=== PATIENT | male | born 1940 | race Caucasian/White ===

== ENCOUNTER → 2017-09-15 09:27 | Outpatient (CLI) | payer MEDICARE, SELFPAY ==
[2017-09-15 12:59] LABS: Anion Gap 9 (5-15); BUN 37 mg/dL (7-18); BUN/Creat Ratio 19.8 RATIO (10-20); Chloride 110 mmol/L (98-107); Cholesterol 120 mg/dL (200); Creatinine, Serum 1.87 mg/dL (0.70-1.30); EST Glomerular Filtration Rate 38 mL/min (>60); Est Glom Filt Rate - Afr Amer 46 mL/min (>60); Glucose 126 mg/dL (74-106); High Density Lipoprotein 44 mg/dL; Potassium 4.9 mmol/L (3.5-5.1); Sodium Level 142 mmol/L (136-145); Triglycerides 131 mg/dL; Very Low Density Lipoprotein 26 mg/dL (5-40)
== END ==
PROVIDERS: Family Provider Family Medicine; PCP Family Medicine; Visit Provider Family Medicine
DX: I10 Essential (primary) hypertension (principal); E11.9 Type 2 diabetes mellitus without complications
CPT/HCPCS: 36415; 80048; 80061

== ENCOUNTER → 2018-05-02 09:09 | Outpatient (CLI) | payer MEDICARE, SELFPAY ==
[2018-05-02 10:52] LABS: AST(SGOT) 12 U/L (15-37); Alanine Aminotransfer ALT/SGPT 20 U/L (16-61); Albumin, Serum 4.1 g/dL (3.2-5.0); Alkaline Phosphatase 67 U/L (45-117); Anion Gap 11 (5-15); BUN 45 mg/dL (7-18); Bilirubin, Direct 0.15 mg/dL (0.00-0.30); Calcium,Total 9.2 mg/dL (8.5-10.1); Chloride 108 mmol/L (98-107); Cholesterol 141 mg/dL (200); Creatinine, Serum 2.05 mg/dL (0.70-1.30); EST Glomerular Filtration Rate 34 mL/min (>60); Est Glom Filt Rate - Afr Amer 41 mL/min (>60); Globulin 3.6 g/dL (2.2-4.2); Glucose 131 mg/dL (74-106); High Density Lipoprotein 47 mg/dL; Potassium 4.3 mmol/L (3.5-5.1); Protein, Total 7.7 g/dL (6.4-8.2); Sodium Level 141 mmol/L (136-145); Triglycerides 172 mg/dL; Very Low Density Lipoprotein 34 mg/dL (5-40)
[2018-05-02 10:58] LABS: Microalbumin,Random Urine 43.8 mg/L (NO RANGE EST.); Microalbumin:Creatinine Ratio 30.8 mg/g CRE (<30 mg/g CRE)
--- OUTSIDE RECORDS SUMMARY | 2018-06-25 12:02 | XMS RPT_ITS ---
:1940 Author Organization OHIP Care Team Providers Name Role Phone Nati Dorsey Attending Unavailable PROVIDER, UNKNOWN Referring Unavailable Domingo Greer Primary Care Unavailable Domingo Greer Attending Unavailable Domingo Greer Primary Care Unavailable Elly Petit Attending Unavailable Marva Ch Attending Unavailable Rosalie Gracia Attending Unavailable Domingo Greer Referring Unavailable Domingo Greer Primary Care Unavailable Domingo Greer Attending Unavailable Domingo Greer Primary Care Unavailable Hung Pearson Consulting Unavailable PROBLEMS PROBLEMS DATE TYPE CONDITION / CODE ATTENDING STATUS SOURCE 09/29/2017 Admitting Abdominal aortic Nati Dorsey [employer] [facility] Diagnosis aneurysm, without System rupture / Repository I71.4(ICD-10) 09/29/2017 Admitting 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 / System I70.1(ICD-10) Repository 09/27/2017 Unknown I10 - Essential Luis Gracia (primary) Rosalie Cash [facility] hypertension / Hospital I10(ICD-10) Repository 09/27/2017 Unknown Z95.5 - Presence of Gracia, Active [place] coronary angioplasty Rosalie Cash [facility] implant and graft / Hospital Z95.5(ICD-10) Repository 09/27/2017 Unknown I25.10 - Samia, Active Walker Atherosclerotic Rosalie Cash [facility] heart disease of Hospital [place] coronary Repository artery without angina pectoris / I25.10(ICD-10) 09/27/2017 Unknown E78.5 - Samia, Active Walker Hyperlipidemia, Rosalie Cash [facility] unspecified / Hospital E78.5(ICD-10) Repository 09/15/2017 Unknown E11.9 - Type 2 Domingo Greer Active [place] diabetes mellitus [facility] without Hospital complications / Repository E11.9(ICD-10) PROCEDURES PROCEDURES No Procedure Records FoundRESULTS RESULTS BASIC METABOLIC Collected: 05/02/2018 Status: F Source: [place] PROFILE (BMP) 9:12 AM [facility] REPOSITORY Order Comment: DR PEARSON ORDERED: LIVER, LIPID DR LOPEZ ORDERED: LIVER, LIPID, BMP, AUBRIE TYPE CODE TESTS RESULT OUT OF RANGE REFERENCE UNITS LAB L501.0100 74-106 mg/dL High GLU 131 Result Comment: Fasting Glucose result greater than or equal to 126 mg/dL suggests DIABETES MELLITUS per A.D.A. criteria. Please note revised GLUCOSE reference range effective 2017. LAB L501.1000 7-18 mg/dL High BUN 45 LAB L501.1100 0.70-1.30 mg/dL High CREAT,SERUM 2.05 Result Comment: The validity of the calculated GFR AND GFRAA in patients over 70 years has not been determined. Clinical correlation is essential. LAB L501.1110 >60 mL/min Low EST GFR 34 Result Comment: Non- GFR Calc LAB L501.1115 >60 mL/min Low EST GFR - AA 41 Result Comment: GFR Calc LAB L501.1300 10-20 RATIO High BUN/CRE 22.0 LAB L501.2200 8.5-10.1 mg/dL CA Normal 9.2 LAB L501.5300 136-145 mmol/L NA Normal 141 LAB L501.5600 3.5-5.1 mmol/L K Normal 4.3 LAB L501.5900 98-107 mmol/L High CL 108 LAB L501.6100 21.0-32.0 mmol/L Normal CO2 22.0 LAB L501.6200 5-15 Normal GAP 11 Performed By: #### L500.2500, L500.3400, L500.4100 #### [facility] [address] [place], [place], [id number] LIVER PROFILE Collected: 05/02/2018 Status: F Source: [place] 9:12 AM [facility] [place] Order Comment: DR PEARSON ORDERED: LIVER, LIPID DR LOPEZ ORDERED: LIVER, LIPID, BMP, AUBRIE TYPE CODE TESTS RESULT OUT OF RANGE REFERENCE UNITS LAB L501.1500 6.4-8.2 g/dL Normal T PROT 7.7 LAB L501.1800 3.2-5.0 g/dL Normal ALB 4.1 LAB L501.1950 2.2-4.2 g/dL Normal GLOB 3.6 LAB L501.4100 15-37 U/L Low AST 12 LAB L501.4305 45-117 U/L Normal ALK P 67 LAB L501.4405 16-61 U/L Normal ALT 20 LAB L501.4600 0.20-1.00 mg/dL Normal T BILI 0.50 LAB L501.4700 0.00-0.30 mg/dL Normal D BILI 0.15 Performed By: #### L500.2500, L500.3400, L500.4100 #### [facility] [address] [facility]. [place], [place], [id number] LIPID PROFILE Collected: 05/02/2018 Status: F Source: [place] 9:12 AM [facility] Order Comment: DR PEARSON ORDERED: LIVER, LIPID DR LOPEZ ORDERED: LIVER, LIPID, BMP, AUBRIE TYPE CODE TESTS RESULT OUT OF RANGE REFERENCE UNITS LAB L501.4900 200 mg/dL Normal CHOL 141 Result Comment: <200 mg/dL Desirable 200-240 mg/dL Borderline >240 mg/dL High Risk LAB L501.5000 mg/dL Normal TRIG 172 Result Comment: The drugs N-Acetylcysteine and Metamizole may falsely depress this assay. Serum Triglycerides Reference Interval Normal <150 mg/dL Borderline high 150 - 199 mg/dL High 200 - 499 mg/dL Very High > or = 500 mg/dL LAB L501.6400 mg/dL Normal HDL 47 Result Comment: The drugs N-Acetylcysteine and Metamizole may falsely depress this assay. Reference Range HDL <40 mg/dL Low HDL Cholesterol HDL >or= 60 mg/dL High HDL Cholesterol LAB L501.6500 0-130 mg/dL Normal LDL 60 LAB L501.6600 5-40 mg/dL Normal VLDL 34 Performed By: #### L500.2500, L500.3400, L500.4100 #### [facility] [address] [place], [address] MICROALB:CREAT Collected: 05/02/2018 Status: F Source: BINU RATIO,RANDOM UR 9:12 AM [facility] Order Comment: DR PEARSON ORDERED: LIVER, LIPID DR LOPEZ ORDERED: LIVER, LIPID, BMP, AUBRIE TYPE CODE TESTS RESULT OUT OF RANGE REFERENCE UNITS LAB L501.1200 NO RANGE EST. mg/dL Normal UR CREAT 142.00 LAB L502.0500 NO RANGE EST. mg/L Normal 43.8 MICROALBUMIN ,UR LAB L502.0600 <30 mg/g CRE mg/g CRE High 30.8 MALB:CREAT Performed By: #### L502.0250 #### [facility] [address] [place], [address] VL AORTA ILIAC Observed: 09/29/2017 Status: F Source: [employer] DUPLEX W/ STENT 8:49 AM SYSTEM REPOSITORY GRAFT Patient Name: VIVEK GANDHI Ultrasound Exam Date/Time 09/29/2017 10:04:06 EDT Exam VL Aorta Iliac Duplex w/ Stent Graft Ordering Physician NATI DORSEY Accession Number [id number] CPT4 Codes 47655 (), 22132 () Reason For Exam Attn renals in patient s/p stent graft Report [facility] --- Abdominal Aortic Endograft Report Patient Name: Vivek Gandhi : 1940 (76yrs) Study Date: 09/29/2017 Age: 76 Account: [id number] Gender: M Loc: BP: Ordering: Nati Dorsey MD Technologist: Ordering Physician: Nati Dorsey MD [employer] Equipment Mechanic: Denise Dillard RVT Interpreting Physician: Fox Mcgraw MD --- Location: [address] --- INDICATIONS: Aortic aneurysm. --- CONCLUSIONS 1. The right renal artery velocity is elevated, suggestive of a greater than 60% stenosis. The left renal artery velocity is elevated, suggestive of a greater than 60% stenosis. 2. Slight enlargement of iliac arteries --- IMPRESSIONS: - No endoleak present at this time. - No flow in sac. - The right renal artery velocity is elevated, suggestive of a greater than 60% stenosis. - The left renal artery velocity is elevated, suggestive of a greater than 60% stenosis. - Patent aortic endograft with no evidence of an endo leak. --- HISTORY: Risk factors: Hypertension. Diabetes mellitus. Dyslipidemia. --- STUDY DATA: Abdominal aorta endograft duplex exam. Birthdate: Patient birthdate: 1940. Age: Patient is 76 yr old. Sex: Gender: male. Ethnicity: Ethnicity: white. Doppler flow study including spectral analysis, color and chan scale imaging. Patient status: Outpatient. Procedure: A vascular evaluation was performed. The images were obtained using a Hydrophi E9 vascular ultrasound machine. --- Arterial flow: + +--------+-------+ + --+ !Location !V sys !AP cm !Transverse!Comment ! + +--------+-------+ + --+ !Aorta - proximal !85 cm/s !2.79 cm!3.24 cm !proximal gas. ! + +--------+-------+ + --+ !Aorta - Stent Limb Prox !41 cm/s !-------! ! --! + +--------+-------+ + --+ !Aorta - Stent Limb Mid !33 cm/s !-------! ! --! + +--------+-------+ + --+ !Aorta - Stent Limb Dist !39 cm/s !-------! ! --! + +--------+-------+ + --+ !Aorta - mid !41 cm/s !3.53 cm!3.38 cm ! --! + +--------+-------+ + --+ !Aorta - distal !--------!4.16 cm!4.56 cm ! --! + +--------+-------+ + --+ !Right Limb Prox !68 cm/s !-------! !No endoleak ! ! ! ! ! !seen. ! + +--------+-------+ + --+ !Right Limb Mid !74 cm/s !-------! ! --! + +--------+-------+ + --+ !Right Limb Dist !82 cm/s !-------! ! --! + +--------+-------+ + --+ !Right ROBERTO [place] - Distal to !131 cm/s!1.69 cm!1.71 cm ! --! !stent ! ! ! ! ! + +--------+-------+ + --+ !Left Limb Prox !62 cm/s !-------! ! --! + +--------+-------+ + --+ !Left Limb Mid !149 cm/s!-------! ! --! + +--------+-------+ + --+ !Left Limb Dist !142 cm/s!-------! ! --! + +--------+-------+ + --+ !Left ROBERTO [place] - Distal to !144 cm/s!1.82 cm!1.93 cm ! --! !stent ! ! ! ! ! + +--------+-------+ + --+ !Right renal artery max !312 cm/s!-------! !suboptimal. ! + +--------+-------+ + --+ !Left renal artery max !245 cm/s!-------! ! --! + +--------+-------+ + --+ !Inferior mesenteric !--------!-------! !not seen. ! + +--------+-------+ + --+ HAWA table: + + + + !Stage !R PT index!L PT ! + + + + !Baseline HAWA!1.04 !0.77 mm Hg! + + + + Electronically signed by: Fox Mcgraw MD [id number]:18 Final Dictated: 09/29/2017 1:00 pm Dictating Physician: FOX MCGRAW Signed Date and Time: 09/29/2017 1:00 pm Signed by: FOX MCGRAW CARDIOLOGY VISIT Observed: 09/28/2017 Status: F Source: BINU REPORT 10:[address] [place] [address] OFFICE VISIT Date of Service: 09/27/17 MR#: [id number] Acct: [id number] Name: VIVEK GANDHI Rep #: [id number] : 1940 Provider: Rosalie Gracia Age/Sex: 76/M [place] [facility] [place]: Signed HPI [facility] Details: VIVEK GANDHI is a 76 M who presents to the office today for for a cardiovascular follow-up. He has a history of coronary artery disease with angioplasty and stenting of the proximal and distal RCA, infrarenal abdominal aortic aneurysm being followed by Dr. Nati Dorsey at [facility], hypertension, hyperlipidemia and diabetes. From a cardiac standpoint, patient is doing well. He does not have any chest discomfort/heaviness/tightness. His exercise tolerance is stable for his age. He does not have any worsening symptoms of shortness of breath. He denies any PND. He does not have any orthopnea. He does not have any symptoms of congestive heart failure. He does not have any palpitations that he is aware of. He does not have any lightheadedness or dizziness. He does not have any near-syncope or syncope. He does not have any lower extremity edema. He does not have any symptoms of claudication. Intake Vital Signs09/27/17 Blood Pressure 130/80 09/27/17 Height 5 ft 10 in 09/27/17 Weight: 230 lb 09/27/17 Body Mass Index (BMI) 33.0 09/27/17 Blood Pressure 162/80 Intake Visit Reasons: 6 M Day Care Home Provider Required: No Accompanied by: none Is patient in pain?: No Allergies No Known Allergies Allergy (Verified 09/27/17 09:21) Medications aspirin 325 mg tablet 325 mg PO QDAY 09/21/17 [History Confirmed 09/27/17] atenolol 50 mg tablet 50 mg PO QDAY 09/21/17 [History Confirmed 09/27/17] clopidogrel 75 mg tablet 75 mg PO QDAY 09/21/17 [History Confirmed 09/27/17] coenzyme Q10 100 mg capsule 100 mg PO QDAY 09/21/17 [History Confirmed 09/27/17] hydrochlorothiazide 25 mg tablet 25 mg PO QDAY 09/21/17 [History Confirmed 09/27/17] lisinopril 20 mg tablet 20 mg PO BID tab 09/21/17 [History Confirmed 09/27/17] metformin 500 mg tablet 500 mg PO QDAY tab 09/21/17 [History Confirmed 09/27/17] nifedipine ER 60 mg tablet,extended release 60 mg PO QDAY 09/21/17 [History Confirmed 09/27/17] rosuvastatin 40 mg tablet 40 mg PO QHS tab 09/21/17 [History Confirmed 09/27/17] liraglutide 0.6 mg/0.1 mL (18 mg/3 mL) subcutaneous pen injector SC 30 Days #9 09/27/17 [History Confirmed 09/27/17] Ejection fraction %: 65 to 70 PFSH Medical History Atherosclerotic heart disease of [place] coronary artery without angina pectoris (Chronic) Aortic aneurysm of unspecified site without mention of rupture (Chronic) Diabetes mellitus (Chronic) HLD (hyperlipidemia) (Chronic) Benign essential HTN (Chronic) Asymptomatic coronary heart disease (Chronic) Surgical History Presence of coronary angioplasty implant and graft (Chronic) Family History Mother Cancer Social History Smoking Status: Former smoker alcohol intake: never substance use type: does not use caffeine: Yes Type: carbonated beverages Number of servings: 3 what type of physical activity do you participate in: none seatbelt use: always do you feel safe at home: Yes ROS Const Const: Negative for weakness, fatigue, fever(s) or headache(s) Eyes Eyes: Negative for blind spots, loss of peripheral vision or transient loss of vision ENT ENT: Negative for headache(s), dizziness, tinnitus or Nosebleed/epistaxis Cardio Chest Pain: No Palpitations: No Edema: None Muscle aches with walking: None Resp Respiratory: Negative for SOB with activity, SOB at rest, SOB orthopnea\SOB lying down or Cough GI GI: Negative nausea, vomiting, heartburn or vomiting blood/hematemesis : Negative for hematuria Musc Musc: Negative for muscle aches/ myalgia Neuro Neuro: Negative for weakness, headache(s), dizziness, near syncope, syncope, lightheadedness or orthostatic symptoms Zaid Hematologic/Lymphatic: Negative for easy bleeding Endo Endo: Negative for fatigue Cardiology Exam Const Appearance: cooperative, no acute distress and well developed Orientation: alert, awake and oriented x3 Head Head: normocephalic and atraumatic Mouth: moist mucous membranes Eyes General: appearance normal, both eyes and all related structures Conjunctivae: conjunctivae normal Pupils: PERRL EOM: EOM intact bilaterally Neck Neck: normal visual inspection, no lymphadenopathy and no JVD Carotids: Negative bruit Neck Mass: Negative Neck mass Chest Chest inspection: normal inspection of the chest and symmetric chest movement Auscultation: Bilateral: Clear to Auscultation Cardio Palpation: normal PMI Rate: regular rate Rhythm: regular rhythm Heart sounds: S1 normal and S2 normal; negative rub, gallop or murmur GI GI: normal to inspection, soft, no hepatosplenomegaly and bowel sounds present; negative tender Neuro General: alert, awake, oriented x3, CN's II-XI intact bilaterally and moves all extremities Extremities Pulses: Normal: Right Posterior Tibial Pulse, Left Posterior Tibial Pulse, Right Radial Pulse, Left Radial Pulse Lower Extremity Edema: None: Bilateral Psych Psychological: normal affect Assessment AND Plan 1. Atherosclerosis of [place] coronary artery of [place] heart without angina pectoris I25.10 PTCA/stent of RCA 09/20/96; Redilated the RCA AND PTCA of CX 11/24/01; PTCA/stent to distal RCA 02/20/02; PTCA/stent to RCA X 2 (BARBARA) 11/19/04; Aort Biiliac stent graft 03/10/11; Plan - TOMAS Morgan Stable, from a cardiac standpoint patient does not have any symptoms of angina. We recommend that they continue with current aggressive medical management and risk factor modification. Orders Orders: 2. Pure hypercholesterolemia E78.00; E78.0 Plan - TOMAS Morgan Recent lipid profile demonstrates total cholesterol 120, HDL 44, LDL 50. Will not make any adjustments. We will continue to monitor. 3. Benign essential HTN I10 Plan - TOMAS Morgan Blood pressure initially elevated however upon recheck it is normotensive. We will continue to monitor. Will not make any adjustments. Orders Orders: 4. Aortic aneurysm without rupture, unspecified portion of aorta I71.9 Plan - TOMAS Morgan Patient does continue to follow with vascular. Plan Detail Other Orders Orders: Additional Comments - TOMAS Morgan The above patient was discussed with Dr. Pearson, he agrees with plan of care. Thank you for allowing us to participate in patient's plan of care, if you have any questions please do not hesitate to call. This note was generated using a voice recognition system and there may be incorrect words, spelling or punctuation errors that were not noted when reviewing the office note prior to saving. 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 transplanted heart: [place] heart Pure hypercholesterolemia E78.00; E78.0 Hyperlipidemia type: pure hypercholesterolemia Benign essential HTN I10 Aortic aneurysm without rupture, unspecified portion of aorta I71.9 Aortic location: unspecified Presence of rupture: without rupture Coding Level of Care Code Off vis,est,level 3 Diagnoses Atherosclerosis of [place] coronary artery of [place] heart without angina pectoris I25.10 [place] vs. transplanted heart: [place] heart Pure hypercholesterolemia E78.00; E78.0 Hyperlipidemia type: pure hypercholesterolemia Benign essential HTN I10 Aortic aneurysm without rupture, unspecified portion of aorta I71.9 Aortic location: unspecified Presence of rupture: without rupture 09/27/17 1027 <Electronically signed by Rosalie MARIN> Date Rosalie MARIN 09/28/17 1023<Electronically signed by Hung Pearson MD> Cosigner Signature: Date (if applicable) Hung Pearson MD CC: Domingo Greer MD 12 LEAD EKG PERFORMED Observed: 09/27/2017 Status: F [place] [facility] [place] [facility] [place] [facility] [address] [place] [address] 12 Lead EKG performed [place] [facility] 09/27/17 0915 MR#: [id number] Acct: [id number] Name: VIVEK GANDHI Rep #: [id number] : 1940 76 From: Rosalie MARIN Attending Dr: Rosalie Gracia Status: DEP AMB Ordering Dr: Rosalie Gracia Date: 09/27/17 [place] [facility] [place]: M C Ad[place] [facility] Lead E[place] performed [place] [facility] ECG Report Interpretation Sinus Bradycardia WITHIN NORMAL LIMITSElectronically signed on 09/30/2017 at 17:15 by Hung Pearson 09/30/17 1720 Date Rosalie MARIN CC: Domingo Greer MD Date Dictated: 09/27/17914 Date Transcribed: 09/27/17914 Track Service Worker: ANA MARIA Signed BASIC METABOLIC Collected: 09/15/2017 Status: F Source: [place] PROFILE (BMP) 9:28 AM [facility] [place] TYPE CODE TESTS RESULT OUT OF RANGE REFERENCE UNITS LAB L501.0100 74-106 mg/dL High GLU 126 Result Comment: Fasting Glucose result greater than or equal to 126 mg/dL suggests DIABETES MELLITUS per A.D.A. criteria. Please note revised GLUCOSE reference range effective 2017. LAB L501.1000 7-18 mg/dL High BUN 37 LAB L501.1100 0.70-1.30 mg/dL High CREAT,SERUM 1.87 Result Comment: The validity of the calculated GFR AND GFRAA in patients over 70 years has not been determined. Clinical correlation is essential. LAB L501.1110 >60 mL/min Low EST GFR 38 Result Comment: Non- GFR Calc LAB L501.1115 >60 mL/min Low EST GFR - AA 46 Result Comment: GFR Calc LAB L501.1300 10-20 RATIO Normal BUN/CRE 19.8 LAB L501.2200 8.5-10.1 mg/dL CA Normal 9.0 LAB L501.5300 136-145 mmol/L NA Normal 142 LAB L501.5600 3.5-5.1 mmol/L K Normal 4.9 LAB L501.5900 98-107 mmol/L High CL 110 LAB L501.6100 21.0-32.0 mmol/L Normal CO2 23.0 LAB L501.6200 5-15 Normal GAP 9 Performed By: #### L500.2500, L500.4100 #### [facility] [address] [place], [address] LIPID PROFILE Collected: 09/15/2017 Status: F Source: [place] 9:28 AM [facility] [place] TYPE CODE TESTS RESULT OUT OF RANGE REFERENCE UNITS LAB L501.4900 200 mg/dL Normal CHOL 120 Result Comment: <200 mg/dL Desirable 200-240 mg/dL Borderline >240 mg/dL High Risk LAB L501.5000 mg/dL Normal TRIG 131 Result Comment: The drugs N-Acetylcysteine and Metamizole may falsely depress this assay. Serum Triglycerides Reference Interval Normal <150 mg/dL Borderline high 150 - 199 mg/dL High 200 - 499 mg/dL Very High > or = 500 mg/dL LAB L501.6400 mg/dL Normal HDL 44 Result Comment: The drugs N-Acetylcysteine and Metamizole may falsely depress this assay. Reference Range HDL <40 mg/dL Low HDL Cholesterol HDL >or= 60 mg/dL High HDL Cholesterol LAB L501.6500 0-130 mg/dL Normal LDL 50 LAB L501.6600 5-40 mg/dL Normal VLDL 26 Performed By: #### L500.2500, L500.4100 #### [facility] [address] [place], [address] ALLERGIES ALLERGIES DATE TYPE / CODE NAME / CODE REACTION SEVERITY SOURCE 09/27/2017 Drug No Known Unknown [facility] Allergy/4160 Allergies/F00 Hospital 26511(SNOMED [id number](RXNOR Repository CT) M) ENCOUNTERS ENCOUNTERS ADMIT/DISCHARGE ACCOUNT NUMBER ADMITTING ENCOUNTER LOCATION SOURCE CLASS 05/02/2018 [id number] Ambulatory [facility] ding:MFPLAB Repository 09/29/2017 [id number] Ambulatory [facility] Repository 09/27/2017/09/28/19 [id number] Ambulatory BMSBuilding: [place] [facility] Repository 09/21/2017 [id number] Ambulatory [facility] Repository 09/16/2017 [id number] [facility]2017 [id number] Ambulatory [facility] ding:MFPLAB Repository PAYERS PAYERS ENCOUNTER GUARANTOR PAYER SUBSCRIBER SOURCE 05/02/2018 VIVEK Quigley Primary VIVEK Quigley Bin[place] [id number] Insurance:ANA LINDOB: Community [place] [employer] [id number] Number: Repository [id number]: [phone]) [id number] [phone] () Date:[id number] [address] [address]KL: 05/02/2018 Secondary NOT GIVENUNK Walker Insurance:SELF PAY [facility] Number: Effective Repository Date:2018-05-02 09/29/2017 [facility]ivek N [facility] Wilson[facility]: Insurance:HumanaPolic WilsonDOB: System [id number] y Number: Effective [id number] [facility] Date: [place], [place] [address]Kko: () 09/27/2017 VIVEK N Primary VIVEK N [place] [id number] Insurance:HUMANA WILSONDOB: Community [place] [employer] [id number] Number: Repository [address]Ien: 330 [id number] [phone] () Date:2738-70-72RN [address] [address]UU: 09/27/2017 Secondary NOT GIVENUNK Walker Insurance:SELF PAY [facility] Number: Effective Repository Date:2017-05-10 09/21/2017 Vivek [id number] Primary Vivek WilsonDOB: Walker Shahriar Insurance:HUMANA [id number] [place] [facility] [id number]: ([phone]) Number: Repository [phone] () [id number] Date:8130-82-28KY [address] [address]NX: 09/21/2017 Secondary NOT GIVENUNK Walker Insurance:SELF PAY [facility] Number: Effective Repository Date:2017-09-21 09/16/2017 Vivek [id number] Primary Vivek WilsonDOB: Binu Shahriar Insurance:HUMANA [id number] [place] [address] [facility] [id number]: [phone]) Number: Repository [phone] () [id number] Date:9816-98-50LY [address] [address]FY: 09/16/2017 Secondary NOT GIVENUNK Walker Insurance:SELF PAY [facility] Number: Effective Repository Date:2017-09-16 09/15/2017 Vivek [id number] Primary Vivek LindoB: Binu Shahriar Insurance:HUMANA [id number] [place] [address] PP[place] [facility] [address]Yfv: ([phone]) Number: Repository [phone] ) [id number] Date:[id number] [address]RN: 09/15/2017 Secondary NOT GIVENUNK Walker Insurance:SELF PAY [facility] Number: Effective Repository Date:2017-09-15
== END ==
PROVIDERS: Physician Assistant Medical; Family Provider Family Medicine; PCP Family Medicine; Visit Provider Family Medicine
DX: E78.5 Hyperlipidemia, unspecified (principal); I10 Essential (primary) hypertension; I25.10 Atherosclerotic heart disease of native coronary artery without angina pectoris; E11.9 Type 2 diabetes mellitus without complications
CPT/HCPCS: 36415; 80048; 80061; 80076; 82043; 82570

== ENCOUNTER → 2018-09-14 09:46 | Outpatient (CLI) | payer MEDICARE, SELFPAY ==
[2018-06-16 09:14] VITALS: BMI 34.2
[2018-09-14 13:05] LABS: Anion Gap 7 (5-15); BUN 34 mg/dL (7-18); BUN/Creat Ratio 19.5 RATIO (10-20); Calcium,Total 9.3 mg/dL (8.5-10.1); Chloride 108 mmol/L (98-107); Creatinine, Serum 1.74 mg/dL (0.70-1.30); EST Glomerular Filtration Rate 41 mL/min (>60); Est Glom Filt Rate - Afr Amer 49 mL/min (>60); Glucose 139 mg/dL (74-106); Potassium 5.2 mmol/L (3.5-5.1); Sodium Level 139 mmol/L (136-145)
== END ==
PROVIDERS: Family Provider Family Medicine; PCP Family Medicine; Referring Provider Family Medicine; Visit Provider Family Medicine
DX: E11.9 Type 2 diabetes mellitus without complications (principal)
CPT/HCPCS: 36415; 80048

== ENCOUNTER → 2019-03-16 09:42 | Outpatient (CLI) | payer MEDICARE, SELFPAY ==
[2018-06-16 09:14] VITALS: BMI 34.2
[2019-03-16 12:37] LABS: Hemoglobin A1c 6.9 % (4.2-6.3)
[2019-03-16 12:40] LABS: Anion Gap 8 (5-15); BUN 54 mg/dL (7-18); Calcium,Total 9.9 mg/dL (8.5-10.1); Chloride 111 mmol/L (98-107); Cholesterol 121 mg/dL (200); Creatinine, Serum 2.46 mg/dL (0.70-1.30); EST Glomerular Filtration Rate 27 mL/min (>60); Est Glom Filt Rate - Afr Amer 33 mL/min (>60); Glucose 129 mg/dL (74-106); High Density Lipoprotein 44 mg/dL; PSA,Total - Annual Screen 1.28 ng/mL (0.00-4.00); Potassium 4.8 mmol/L (3.5-5.1); Sodium Level 141 mmol/L (136-145); Triglycerides 146 mg/dL; Very Low Density Lipoprotein 29 mg/dL (5-40)
== END ==
PROVIDERS: Family Provider Family Medicine; PCP Family Medicine; Referring Provider Family Medicine; Visit Provider Family Medicine
DX: Z00.00 Encounter for general adult medical examination without abnormal findings (principal); E11.9 Type 2 diabetes mellitus without complications; Z12.5 Encounter for screening for malignant neoplasm of prostate; N28.9 Disorder of kidney and ureter, unspecified
CPT/HCPCS: 36415; 80048; 80061; 83036; 84153; G0103

== ENCOUNTER → 2019-04-17 09:01 | Outpatient (CLI) | payer MEDICARE, SELFPAY ==
[2018-06-16 09:14] VITALS: BMI 34.2
[2019-04-17 10:49] LABS: Anion Gap 9 (5-15); BUN 31 mg/dL (7-18); Calcium,Total 9.3 mg/dL (8.5-10.1); Chloride 111 mmol/L (98-107); Creatinine, Serum 1.82 mg/dL (0.70-1.30); EST Glomerular Filtration Rate 39 mL/min (>60); Est Glom Filt Rate - Afr Amer 47 mL/min (>60); Glucose 140 mg/dL (74-106); Potassium 4.5 mmol/L (3.5-5.1); Sodium Level 144 mmol/L (136-145)
== END ==
PROVIDERS: Family Provider Family Medicine; PCP Family Medicine; Visit Provider Family Medicine
DX: I10 Essential (primary) hypertension (principal)
CPT/HCPCS: 36415; 80048

== ENCOUNTER → 2019-06-19 13:28 | Outpatient (CLI) | payer MEDICARE, SELFPAY ==
[2019-06-06 12:01] VITALS: BMI 34.2
--- NOTE | 2019-06-19 13:30 | ECHOCS_ITS ---
Reason For Study: HTN Procedure This was a 2D Doppler, Color Flow transthoracic echocardiogram. The study was technically difficult. Contrast injection was performed. Exam performed in department. Left Ventricle Normal LV size. Left ventricular systolic function is normal. The estimated ejection fraction is 65 %. No regional wall motion abnormalities noted. Right Ventricle Normal RV size. Normal systolic function. Atria Normal left atrium. Normal right atrium. Mitral Valve Mitral valve not well visualized. Tricuspid Valve Normal tricuspid valve. Aortic Valve Trisinus/trileaflet aortic valve. Mild focal aortic valve calcification. Peak aortic valve gradient 22 mmHg. Mean aortic valve gradient 12 mmHg. Mild aortic stenosis. Pulmonic Valve The pulmonic valve is not well visualized. Great Vessels Normal aortic root. The pulmonary artery is normal size. Normal inferior vena cava. Pericardium/Pleural No pericardial effusion. Medication 22 gauge I.V. with prn adaptor inserted into right arm. Diluted definity 4.0ml given slow IV push to enhance endocardial definition. MMode/2D Measurements & Calculations LVIDd: 4.6 cm IVSd: 0.97 cm LVOT diam: 2.0 cm LVIDs: 2.6 cm LVPWd: 0.99 cm RVDd: 3.7 cm FS: 43.6 % LVOT area: 3.3 cm2 Ao root diam: 3.8 cm LAV(MOD-bp): 58.7 ml EDV(MOD-sp4): 137.9 ml LAV(MOD-bp) Indexed: 26.5 ml/m2 ESV(MOD-sp4): 43.3 ml LAV(MOD-sp2): 50.0 ml EF(MOD-sp4): 68.6 % LAV(MOD-sp4): 65.8 ml EDV(MOD-sp2): 138.5 ml SV(MOD-sp4): 94.6 ml SV(MOD-sp2): 83.8 ml EF(MOD-sp2): 60.5 % LA dimension(2D): 4.6 cm LA A4 area: 22.7 cm2 RA A4 area: 15.2 cm2 Time Measurements MV dec time: 0.23 sec Doppler Measurements & Calculations MV E max greg: 106.5 cm/sec Lat Peak E' Greg: 8.8 cm/sec Med Peak E' Greg: 7.9 cm/sec MV A max greg: 90.7 cm/sec E/E' lat: 12.1 E/E' med: 13.4 MV E/A: 1.2 Ao V2 max: 234.7 cm/sec LV V1 max: 131.4 cm/sec SV(LVOT): 89.7 ml Ao max P.1 mmHg LV V1 max P.9 mmHg Ao V2 mean: 157.9 cm/sec LV V1 mean P.5 mmHg Ao mean P.2 mmHg LV V1 mean: 87.1 cm/sec Ao V2 VTI: 47.4 cm LV V1 VTI: 27.6 cm ARIADNE(I,D): 1.9 cm2 ARIADNE(V,D): 1.8 cm2 TR max greg: 288.4 cm/sec TR max P.5 mmHg Interpretation Summary Normal LV size. Left ventricular systolic function is normal. The estimated ejection fraction is 65 %. Mild aortic stenosis. Contrast injection was performed. Ordering Physician: Hung Pearson Referring Physician: Hung Pearson Performed By: Rubina Henry, MIGUEL, RVT
== END ==
PROVIDERS: Family Provider Family Medicine; PCP Family Medicine; Referring Provider Internal Medicine Cardiovascular Disease; Visit Provider Internal Medicine Cardiovascular Disease
DX: I25.10 Atherosclerotic heart disease of native coronary artery without angina pectoris (principal)
CPT/HCPCS: 93306; Q9957; A4216; C8929

== ENCOUNTER → 2019-06-23 10:10 | Outpatient (CLI) | payer MEDICARE, SELFPAY ==
[2019-06-06 12:01] VITALS: BMI 34.2
[2019-06-23 14:36] LABS: Anion Gap 7 (5-15); BUN 38 mg/dL (7-18); Calcium,Total 9.3 mg/dL (8.5-10.1); Chloride 112 mmol/L (98-107); Creatinine, Serum 1.81 mg/dL (0.70-1.30); EST Glomerular Filtration Rate 39 mL/min (>60); Est Glom Filt Rate - Afr Amer 47 mL/min (>60); Glucose 140 mg/dL (74-106); Potassium 4.7 mmol/L (3.5-5.1); Sodium Level 143 mmol/L (136-145)
[2019-06-23 14:44] LABS: Hemoglobin A1c 7.4 % (4.2-6.3)
== END ==
PROVIDERS: PCP Family Medicine; Referring Provider Family Medicine; Visit Provider Family Medicine
DX: E11.9 Type 2 diabetes mellitus without complications (principal)
CPT/HCPCS: 36415; 80048; 83036

== ENCOUNTER → 2019-09-25 09:56 | Outpatient (CLI) | payer MEDICARE, SELFPAY ==
[2019-06-06 12:01] VITALS: BMI 34.2
[2019-09-25 12:18] LABS: Anion Gap 6 (5-15); BUN 52 mg/dL (7-18); BUN/Creat Ratio 26.8 RATIO (10-20); Calcium,Total 9.5 mg/dL (8.5-10.1); Chloride 114 mmol/L (98-107); Creatinine, Serum 1.94 mg/dL (0.70-1.30); EST Glomerular Filtration Rate 36 mL/min (>60); Est Glom Filt Rate - Afr Amer 43 mL/min (>60); Glucose 135 mg/dL (74-106); Sodium Level 142 mmol/L (136-145)
== END ==
PROVIDERS: PCP Family Medicine; Referring Provider Family Medicine; Visit Provider Family Medicine
DX: E11.9 Type 2 diabetes mellitus without complications (principal)
CPT/HCPCS: 36415; 80048

== ENCOUNTER → 2020-03-21 08:48 | Outpatient (CLI) | payer MEDICARE, SELFPAY ==
[2019-06-06 12:01] VITALS: BMI 34.2
[2020-03-21 10:35] LABS: Anion Gap 6 (5-15); BUN 57 mg/dL (7-18); BUN/Creat Ratio 21.6 RATIO (10-20); Calcium,Total 9.1 mg/dL (8.5-10.1); Chloride 116 mmol/L (98-107); Cholesterol 128 mg/dL (200); Creatinine, Serum 2.64 mg/dL (0.70-1.30); EST Glomerular Filtration Rate 25 mL/min (>60); Est Glom Filt Rate - Afr Amer 30 mL/min (>60); Glucose 117 mg/dL (74-106); High Density Lipoprotein 43 mg/dL; PSA,Total - Annual Screen 1.27 ng/mL (0.00-4.00); Sodium Level 142 mmol/L (136-145); Triglycerides 145 mg/dL; Very Low Density Lipoprotein 29 mg/dL (5-40)
[2020-03-21 10:36] LABS: Hemoglobin A1c 6.4 % (3.8-5.6)
== END ==
PROVIDERS: PCP Family Medicine; Referring Provider Family Medicine; Visit Provider Family Medicine
DX: Z00.00 Encounter for general adult medical examination without abnormal findings (principal); E11.9 Type 2 diabetes mellitus without complications; Z12.5 Encounter for screening for malignant neoplasm of prostate
CPT/HCPCS: 36415; 80048; 80061; 83036; 84153; G0103

== ENCOUNTER → 2020-05-14 14:27 | Outpatient (CLI) | payer MEDICARE, SELFPAY ==
[2019-06-06 12:01] VITALS: BMI 34.2
[2020-05-14 18:01] LABS: Albumin, Serum 4.1 g/dL (3.2-5.0); BUN 30 mg/dL (7-18); BUN/Creat Ratio 17.8 RATIO (10-20); Calcium,Total 9.2 mg/dL (8.5-10.1); Chloride 112 mmol/L (98-107); Creatinine, Serum 1.69 mg/dL (0.70-1.30); EST Glomerular Filtration Rate 42 mL/min (>60); Est Glom Filt Rate - Afr Amer 51 mL/min (>60); Glucose 118 mg/dL (74-106); Phosphorus 3.2 mg/dL (2.5-4.9); Potassium 4.8 mmol/L (3.5-5.1); Sodium Level 140 mmol/L (136-145)
== END ==
PROVIDERS: PCP Family Medicine; Referring Provider Family Medicine; Visit Provider Internal Medicine Nephrology
DX: N18.32 Chronic kidney disease, stage 3b (principal)
CPT/HCPCS: 36415; 80069

== ENCOUNTER → 2020-05-20 09:49 | Outpatient (CLI) | payer MEDICARE, SELFPAY ==
[2019-06-06 12:01] VITALS: BMI 34.2
--- NOTE | 2020-05-20 09:53 | US_ITS ---
STUDY: RENAL ULTRASOUND - COMPLETE REASON FOR EXAM: Male, 79 years old. KIDNEY FAILURE TECHNIQUE: Ultrasound evaluation of the kidneys was performed with real-time and static zamorano-scale imaging. COMPARISON: None. FINDINGS: RIGHT KIDNEY: Normal location of the right kidney, which is normal in size. The right kidney measures 11.3 cm x 4.7 cm x 5.1 cm. There is a normal cortex of the right kidney. The renal cortex measures 1.8 cm. 3 cysts are seen. The largest measures 3.7 cm x 3.7 cm x 3 cm. There are no right renal calculi. There is no right hydronephrosis. DISTAL RIGHT URETER: There is non-visualization of the distal right ureter. There is no demonstrated right ureterovesical junction calculus. There is a visualized right ureteral jet. LEFT KIDNEY: Normal location of the left kidney, which is normal in size. The left kidney measures 10.7 cm x 4.5 cm x 5.2 cm. There is a normal cortex of the left kidney. The renal cortex measures 1.5 cm. 4 cysts are seen. The largest measures 4.7 cm x 4.27 x 3.6 cm. There are no left renal calculi. There is no left hydronephrosis. DISTAL LEFT URETER: There is non-visualization of the distal left ureter. There is no demonstrated left ureterovesical junction calculus. There is a visualized left ureteral jet. BLADDER: The distended urinary bladder has a volume of 99.3 ml. There is a normal wall thickness of the distended urinary bladder. There is no demonstrated mass within the urinary bladder. There are no demonstrated bladder calculi. US/Kidney and Bladder IMPRESSION: Multiple bilateral renal cysts. Electronically Signed: Chace Sheikh, at 15:40 EST , Service support ,
== END ==
PROVIDERS: PCP Family Medicine; Referring Provider Internal Medicine Nephrology; Visit Provider Internal Medicine Nephrology
DX: N17.9 Acute kidney failure, unspecified (principal)
CPT/HCPCS: 76770

== ENCOUNTER → 2020-06-14 09:51 | Outpatient (CLI) | payer MEDICARE, SELFPAY ==
[2019-06-06 12:01] VITALS: BMI 34.2
[2020-06-04 09:58] VITALS: BMI 34.2
[2020-06-14 12:37] LABS: Hematocrit 38.5 % (40-54); Hemoglobin 12.2 g/dL (13.0-16.5); Mean Corp Hgb Conc 31.7 g/dL (32-36); Mean Corpuscular Volume 88.5 fL (80-94); Mean Platelet Vol. 11.3 fl (6.2-12.0); Platelet Count 188 K/mm3 (150-450); RBC Distribution Width CV 13.2 % (11.6-14.6); RBC Distribution Width SD 42.7 fl (35.1-43.9); Red Blood Count 4.35 M/mm3 (4.6-6.2); White Blood Count 6.6 K/mm3 (4.4-11.0)
[2020-06-14 12:49] LABS: Albumin, Serum 3.9 g/dL (3.2-5.0); BUN 38 mg/dL (7-18); BUN/Creat Ratio 18.8 RATIO (10-20); Calcium,Total 9.1 mg/dL (8.5-10.1); Chloride 111 mmol/L (98-107); Creatinine, Serum 2.02 mg/dL (0.70-1.30); EST Glomerular Filtration Rate 34 mL/min (>60); Est Glom Filt Rate - Afr Amer 41 mL/min (>60); Glucose 190 mg/dL (74-106); Phosphorus 3.1 mg/dL (2.5-4.9); Potassium 4.1 mmol/L (3.5-5.1); Sodium Level 141 mmol/L (136-145)
[2020-06-14 12:56] LABS: Vitamin D,25 Hydroxy 24.4 ng/mL
[2020-06-14 13:09] LABS: PTHIN 96.3 pg/mL (18.4-80.1)
[2020-06-14 13:10] LABS: Anion Gap 8 (5-15); BUN 38 mg/dL (7-18); BUN/Creat Ratio 18.8 RATIO (10-20); Calcium,Total 9.1 mg/dL (8.5-10.1); Chloride 111 mmol/L (98-107); Creatinine, Serum 2.02 mg/dL (0.70-1.30); EST Glomerular Filtration Rate 34 mL/min (>60); Est Glom Filt Rate - Afr Amer 41 mL/min (>60); Glucose 190 mg/dL (74-106); Potassium 4.1 mmol/L (3.5-5.1); Sodium Level 141 mmol/L (136-145)
[2020-06-14 13:15] LABS: Hemoglobin A1c 6.7 % (3.8-5.6)
== END ==
PROVIDERS: PCP Family Medicine; Referring Provider Family Medicine; Visit Provider Internal Medicine Nephrology
DX: E11.22 Type 2 diabetes mellitus with diabetic chronic kidney disease (principal); N18.32 Chronic kidney disease, stage 3b
CPT/HCPCS: 36415; 80048; 80069; 82306; 83036; 83970; 85027

== ENCOUNTER → 2020-06-24 10:26 | Outpatient (CLI) | payer MEDICARE, SELFPAY ==
[2020-06-04 09:58] VITALS: BMI 34.2
[2020-06-24 12:52] LABS: Anion Gap 8 (5-15); BUN 52 mg/dL (7-18); Calcium,Total 9.1 mg/dL (8.5-10.1); Chloride 109 mmol/L (98-107); Creatinine, Serum 2.08 mg/dL (0.70-1.30); EST Glomerular Filtration Rate 33 mL/min (>60); Est Glom Filt Rate - Afr Amer 40 mL/min (>60); Glucose 166 mg/dL (74-106); Potassium 4.6 mmol/L (3.5-5.1); Sodium Level 139 mmol/L (136-145)
== END ==
PROVIDERS: PCP Family Medicine; Visit Provider Internal Medicine Nephrology
DX: E11.22 Type 2 diabetes mellitus with diabetic chronic kidney disease (principal); N18.32 Chronic kidney disease, stage 3b
CPT/HCPCS: 36415; 80048

== ENCOUNTER → 2020-09-18 08:02 | Outpatient (CLI) | payer MEDICARE, SELFPAY ==
[2020-06-04 09:58] VITALS: BMI 34.2
[2020-09-18 10:50] LABS: Albumin, Serum 4.1 g/dL (3.2-5.0); BUN 54 mg/dL (7-18); BUN/Creat Ratio 26.5 RATIO (10-20); Calcium,Total 9.3 mg/dL (8.5-10.1); Chloride 110 mmol/L (98-107); Creatinine, Serum 2.04 mg/dL (0.70-1.30); EST Glomerular Filtration Rate 34 mL/min (>60); Est Glom Filt Rate - Afr Amer 41 mL/min (>60); Glucose 139 mg/dL (74-106); Phosphorus 3.6 mg/dL (2.5-4.9); Potassium 5.3 mmol/L (3.5-5.1); Sodium Level 139 mmol/L (136-145)
[2020-09-18 10:54] LABS: Protein, Urine (Random) 15.4 mg/dL (<11.9); Protein:Creat Ratio 134 mg/g CRE (0-200)
== END ==
PROVIDERS: PCP Family Medicine; Visit Provider Internal Medicine Nephrology
DX: E11.22 Type 2 diabetes mellitus with diabetic chronic kidney disease (principal); N18.32 Chronic kidney disease, stage 3b
CPT/HCPCS: 36415; 80069; 82570; 84156

== ENCOUNTER → 2021-02-25 13:30 | Outpatient (CLI) | payer MEDICARE, SELFPAY ==
[2021-02-25 15:34] LABS: Hematocrit 36.9 % (40-54); Hemoglobin 12.3 g/dL (13.0-16.5); Mean Corp Hgb Conc 33.3 g/dL (32-36); Mean Corpuscular Hgb 28.9 pg (27.0-32.0); Mean Corpuscular Volume 86.8 fL (80-94); Mean Platelet Vol. 10.8 fl (6.2-12.0); Platelet Count 156 K/mm3 (150-450); Red Blood Count 4.25 M/mm3 (4.6-6.2); White Blood Count 5.9 K/mm3 (4.4-11.0)
[2021-02-25 15:53] LABS: Protein, Urine (Random) 47.3 mg/dL (<11.9); Protein:Creat Ratio 158 mg/g CRE (0-200)
[2021-02-25 16:05] LABS: Albumin, Serum 3.9 g/dL (3.2-5.0); BUN 39 mg/dL (7-18); Calcium,Total 9.8 mg/dL (8.5-10.1); Chloride 104 mmol/L (98-107); Creatinine, Serum 2.29 mg/dL (0.70-1.30); EST Glomerular Filtration Rate 30 mL/min (>60); Est Glom Filt Rate - Afr Amer 36 mL/min (>60); Glucose 301 mg/dL (74-106); Phosphorus 3.2 mg/dL (2.5-4.9); Potassium 4.6 mmol/L (3.5-5.1); Sodium Level 137 mmol/L (136-145)
== END ==
PROVIDERS: PCP Family Medicine; Referring Provider Family Medicine; Visit Provider Internal Medicine Nephrology
DX: D64.9 Anemia, unspecified (principal); E11.22 Type 2 diabetes mellitus with diabetic chronic kidney disease; N18.32 Chronic kidney disease, stage 3b
CPT/HCPCS: 36415; 80069; 82570; 84156; 85027

== ENCOUNTER → 2021-05-19 10:39 | Outpatient (CLI) | payer MEDICARE, SELFPAY ==
[2021-05-19 12:06] LABS: Hematocrit 40.1 % (40-54); Hemoglobin 12.9 g/dL (13.0-16.5); Mean Corp Hgb Conc 32.2 g/dL (32-36); Mean Corpuscular Hgb 27.4 pg (27.0-32.0); Mean Corpuscular Volume 85.3 fL (80-94); Mean Platelet Vol. 10.8 fl (6.2-12.0); Platelet Count 161 K/mm3 (150-450); RBC Distribution Width CV 13.8 % (11.6-14.6); RBC Distribution Width SD 42.8 fl (35.1-43.9); White Blood Count 6.7 K/mm3 (4.4-11.0)
[2021-05-19 12:16] LABS: Albumin, Serum 3.8 g/dL (3.2-5.0); BUN 30 mg/dL (7-18); BUN/Creat Ratio 15.3 RATIO (10-20); Calcium,Total 9.4 mg/dL (8.5-10.1); Chloride 109 mmol/L (98-107); Creatinine, Serum 1.96 mg/dL (0.70-1.30); EST Glomerular Filtration Rate 35 mL/min (>60); Est Glom Filt Rate - Afr Amer 43 mL/min (>60); Glucose 120 mg/dL (74-106); Phosphorus 3.2 mg/dL (2.5-4.9); Potassium 4.4 mmol/L (3.5-5.1); Sodium Level 142 mmol/L (136-145)
[2021-05-19 13:01] LABS: PTHIN 48.4 pg/mL (18.4-80.1)
== END ==
PROVIDERS: PCP Family Medicine; Visit Provider Internal Medicine Nephrology
DX: N18.32 Chronic kidney disease, stage 3b (principal)
CPT/HCPCS: 36415; 80069; 83970; 85027

== ENCOUNTER 2021-09-10 07:08 | Outpatient (CLI) | payer MEDICARE, SELFPAY ==
--- NOTE | 2021-09-10 07:14 | CT_ITS ---
STUDY: CT ABDOMEN AND PELVIS WITH AND WITHOUT CONTRAST REASON FOR EXAM: Male, 80 years old. NEOPLASM OF UNCERTAIN BEHAVIOR LEFT KIDNEY RADIATION DOSAGE (If Supplied By Facility): CTDIvol = ( 25.34 ) mGy, DLP = ( 4281.36 ) mGycm TECHNIQUE: Transaxial images were obtained from the dome of the diaphragm to the symphysis pubis without oral contrast. IV 75mL Isovue-300 was administered. Sagittal and coronal images were reconstructed. Individualized dose optimization techniques were used for this CT. COMPARISON: Comparison is made with prior study dated 05/09/2012. FINDINGS: Calcified granulomas in the posterior medial segment of the right lower lobe. Coronary artery calcification. There is decreased attenuation of the liver consistent with steatosis. Normal gallbladder and extrahepatic biliary system. There are multiple benign calcified granulomata of the spleen. Normal pancreas. Normal bilateral adrenal glands. There is a 1 cm calculus in the lower pole calyx of the right kidney. Decreased size of the right kidney. Stable multiple cysts are seen in the right kidney. The largest cyst is in the lower pole and measures 2.9 cm. Multiple cysts are once again seen in the left kidney. The largest cyst is in the mid lateral aspect of the kidney. This measures 4.7 cm x 4.4 cm. The attenuation is slightly elevated for a simple cyst. This is unchanged as compared to prior study. Correlation with ultrasound is recommended for further evaluation. Normal visualized stomach. Normal small intestine. There are multiple colonic diverticula consistent with diverticulosis. The appendix is visualized and appears normal. There is diffuse atherosclerotic calcification of the abdominal aorta and its major visceral branches. Endoluminal stent grafting is seen within the distal abdominal aorta. The [place] abdominal aorta is aneurysmally dilated and measures 4.1 cm.Normal inferior vena cava. Normal retroperitoneum. Normal urinary bladder. There is a small umbilical hernia containing fat. Small left inguinal hernia containing fat. There are degenerative changes of the visualized lumbar spine. CT/CT Abd/Pelvis W/WO Contrast IMPRESSION: Intraluminal stent grafting of the distal abdominal aorta. This is unchanged. Bilateral renal cysts more prominent on the left side. These are essentially unchanged. Sigmoid diverticulosis. Electronically Signed: Chace Sheikh MD at 8:58 EDT ,
[2021-09-10 07:26] LABS: CREATININE FINGERSTICK 1.3 mg/dL (0.70-1.30)
== END 2021-09-10 23:59 | disposition home or self-care (01) ==
PROVIDERS: PCP Family Medicine; Referring Provider Urology; Visit Provider Urology
DX: D41.02 Neoplasm of uncertain behavior of left kidney (principal)
CPT/HCPCS: 74178; Q9967

== ENCOUNTER → 2021-11-17 | Outpatient (CLI) | payer MEDICARE, SELFPAY ==
[2021-11-17 10:34] LABS: Hematocrit 35.6 % (40-54); Hemoglobin 11.4 g/dL (13.0-16.5); Mean Corpuscular Hgb 27.6 pg (27.0-32.0); Mean Corpuscular Volume 86.2 fL (80-94); Mean Platelet Vol. 10.7 fl (6.2-12.0); Platelet Count 147 K/mm3 (150-450); Red Blood Count 4.13 M/mm3 (4.6-6.2); White Blood Count 5.9 K/mm3 (4.4-11.0)
[2021-11-17 10:51] LABS: BUN 51 mg/dL (7-18); Creatinine, Serum 1.99 mg/dL (0.70-1.30); Glucose 108 mg/dL (74-106)
[2021-11-17 10:52] LABS: Albumin, Serum 3.8 g/dL (3.2-5.0); BUN/Creat Ratio 25.6 RATIO (10-20); Calcium,Total 9.2 mg/dL (8.5-10.1); Chloride 113 mmol/L (98-107); Cholesterol 122 mg/dL (200); EST Glomerular Filtration Rate 35 mL/min (>60); Est Glom Filt Rate - Afr Amer 42 mL/min (>60); High Density Lipoprotein 44 mg/dL; Phosphorus 4.4 mg/dL (2.5-4.9); Potassium 4.7 mmol/L (3.5-5.1); Sodium Level 142 mmol/L (136-145); Triglycerides 92 mg/dL; Very Low Density Lipoprotein 18 mg/dL (5-40)
[2021-11-17 10:59] LABS: PTHIN 63.2 pg/mL (18.4-80.1)
== END | disposition home or self-care (01) ==
LOC: MFPLAB 08:22
PROVIDERS: PCP Family Medicine; Visit Provider Internal Medicine Nephrology
DX: E11.22 Type 2 diabetes mellitus with diabetic chronic kidney disease (principal); N18.32 Chronic kidney disease, stage 3b
CPT/HCPCS: 36415; 80061; 80069; 83970; 85027

== ENCOUNTER → 2022-03-23 | Outpatient (CLI) | payer MEDICARE, SELFPAY ==
--- NOTE | 2022-03-23 10:28 | RAD_ITS ---
EXAM: XR BILATERAL HIPS WITH PELVIS WHEN PERFORMED, 2 VIEWS CLINICAL INDICATION: PAIN TECHNIQUE: Frontal view of the bilateral hips with pelvis when performed. This report was created using Pigit report generation technology. COMPARISON: None. FINDINGS: BONES/JOINTS: There are degenerative changes in both hips with joint space narrowing and sclerosis greater on the left than on the right. No displaced fracture. Sacroiliac joint is unremarkable. No widening of the pubic symphysis. SOFT TISSUES: Unremarkable. No soft tissue swelling or gas. VASCULATURE: There is an aortobiiliac stent graft in place. RAD/Hips B/L min 2 views w/ Pelvis IMPRESSION: 1. No acute osseous abnormalities. 2. Degenerative changes in both hips with joint space narrowing greater on the left than on the right. Electronically Signed: Mo Sifuentes MD at 23:45 EDT ,
[2022-03-23 13:19] LABS: Anion Gap 6 (5-15); BUN 45 mg/dL (7-18); BUN/Creat Ratio 21.7 RATIO (10-20); Calcium,Total 9.8 mg/dL (8.5-10.1); Chloride 109 mmol/L (98-107); Cholesterol 167 mg/dL (200); Creatinine, Serum 2.07 mg/dL (0.70-1.30); EST Glomerular Filtration Rate 33 mL/min (>60); Est Glom Filt Rate - Afr Amer 40 mL/min (>60); Glucose 139 mg/dL (74-106); High Density Lipoprotein 47 mg/dL; Potassium 4.5 mmol/L (3.5-5.1); Sodium Level 139 mmol/L (136-145); Triglycerides 195 mg/dL; Very Low Density Lipoprotein 39 mg/dL (5-40)
== END | disposition home or self-care (01) ==
PROVIDERS: PCP Family Medicine; Referring Provider Family Medicine; Visit Provider Family Medicine
DX: I10 Essential (primary) hypertension (principal); M25.559 Pain in unspecified hip
CPT/HCPCS: 36415; 73521; 80048; 80061

== ENCOUNTER → 2022-06-22 | Outpatient (CLI) | payer MEDICARE, SELFPAY ==
[2022-06-22 12:18] LABS: Hemoglobin 13.3 g/dL (13.0-16.5); Mean Corp Hgb Conc 32.4 g/dL (32-36); Mean Corpuscular Hgb 28.5 pg (27.0-32.0); Mean Platelet Vol. 11.2 fl (6.2-12.0); Platelet Count 147 K/mm3 (150-450); RBC Distribution Width CV 14.1 % (11.6-14.6); RBC Distribution Width SD 44.8 fl (35.1-43.9); Red Blood Count 4.66 M/mm3 (4.6-6.2); White Blood Count 7.6 K/mm3 (4.4-11.0)
[2022-06-22 12:49] LABS: BUN 36 mg/dL (7-18); BUN/Creat Ratio 18.8 RATIO (10-20); Calcium,Total 9.5 mg/dL (8.5-10.1); Chloride 107 mmol/L (98-107); Creatinine, Serum 1.92 mg/dL (0.70-1.30); EST Glomerular Filtration Rate 36 mL/min (>60); Est Glom Filt Rate - Afr Amer 44 mL/min (>60); Glucose 122 mg/dL (74-106); Phosphorus 3.5 mg/dL (2.5-4.9); Potassium 4.4 mmol/L (3.5-5.1); Sodium Level 142 mmol/L (136-145)
== END | disposition home or self-care (01) ==
LOC: LAB.FUTURE 09:59 → MFPLAB 11:17
PROVIDERS: PCP Family Medicine; Visit Provider Internal Medicine Nephrology
DX: N18.32 Chronic kidney disease, stage 3b (principal); D63.8 Anemia in other chronic diseases classified elsewhere
CPT/HCPCS: 36415; 80069; 85027

== ENCOUNTER → 2022-06-24 | Outpatient (CLI) | payer MEDICARE, SELFPAY ==
[2022-06-24 13:20] LABS: Protein, Urine (Random) 35.3 mg/dL (<11.9); Protein:Creat Ratio 196 mg/g CRE (0-200)
== END | disposition home or self-care (01) ==
LOC: POLAB3 09:28
PROVIDERS: PCP Family Medicine; Visit Provider Internal Medicine Nephrology
DX: E11.22 Type 2 diabetes mellitus with diabetic chronic kidney disease (principal)
CPT/HCPCS: 82570; 84156

== ENCOUNTER → 2022-06-24 | Outpatient (CLI) | payer MEDICARE, SELFPAY | END | disposition home or self-care (01) | LOC: RAD.FUTURE 13:53 | PROVIDERS: PCP Family Medicine; Referring Provider Urology; Visit Provider Urology | DX: N20.0 Calculus of kidney (principal) ==

== ENCOUNTER → 2022-09-22 | Outpatient (CLI) | payer MEDICARE, SELFPAY ==
--- NOTE | 2022-09-22 08:35 | RAD_ITS ---
INDICATION: KIDNEY STONE EXAMINATION/TECHNIQUE: X-RAY - XR Abdomen 1 View COMPARISON: CT 09/10/2021. FINDINGS: There is an aorto by iliac endovascular stent. BOWEL GAS PATTERN: Non-obstructive. No bowel or stomach distention. FREE AIR: Not assessed on a single supine view. ORGANOMEGALY: Not seen. CALCIFICATIONS: 2 right pelvic calcifications likely phleboliths. LOWER CHEST: No acute pathology. BONES AND SOFT TISSUES: There are left and moderately severe right hip osteoarthritis. Stable exam. RAD/Abdomen Single View IMPRESSION: Right pelvic calcifications likely phleboliths. Aortobiiliac endovascular stent. Bilateral hip osteoarthritis. Electronically Signed: Trent Banuelos MD, EVAN at 17:24 EDT ,
== END | disposition home or self-care (01) ==
LOC: RAD 08:32
PROVIDERS: PCP Family Medicine; Referring Provider Urology; Visit Provider Urology
DX: N20.0 Calculus of kidney (principal)
CPT/HCPCS: 74018

== ENCOUNTER → 2022-11-18 | Outpatient (CLI) | payer MEDICARE, SELFPAY ==
[2022-11-18 13:46] LABS: BUN 36 mg/dL (7-18); BUN/Creat Ratio 18.9 RATIO (10-20); Calcium,Total 9.3 mg/dL (8.5-10.1); Chloride 113 mmol/L (98-107); EST Glomerular Filtration Rate 36 mL/min (>60); Est Glom Filt Rate - Afr Amer 44 mL/min (>60); Glucose 142 mg/dL (74-106); Phosphorus 3.6 mg/dL (2.5-4.9); Potassium 4.6 mmol/L (3.5-5.1); Sodium Level 142 mmol/L (136-145)
== END | disposition home or self-care (01) ==
LOC: MFPLAB 09:22
PROVIDERS: PCP Family Medicine; Visit Provider Internal Medicine Nephrology
DX: N18.32 Chronic kidney disease, stage 3b (principal)
CPT/HCPCS: 36415; 80069

== ENCOUNTER → 2023-03-29 | Outpatient (CLI) | payer MEDICARE, SELFPAY ==
[2023-03-29 16:52] LABS: Anion Gap 3 (5-15); BUN 39 mg/dL (7-18); BUN/Creat Ratio 19.6 RATIO (10-20); Calcium,Total 9.3 mg/dL (8.5-10.1); Chloride 115 mmol/L (98-107); Cholesterol 165 mg/dL (200); Creatinine, Serum 1.99 mg/dL (0.70-1.30); EST Glomerular Filtration Rate 35 mL/min (>60); Est Glom Filt Rate - Afr Amer 42 mL/min (>60); Glucose 152 mg/dL (74-106); High Density Lipoprotein 45 mg/dL; Potassium 4.6 mmol/L (3.5-5.1); Sodium Level 140 mmol/L (136-145); Triglycerides 170 mg/dL; Very Low Density Lipoprotein 34 mg/dL (5-40)
== END | disposition home or self-care (01) ==
LOC: MFPLAB 11:13
PROVIDERS: PCP Family Medicine; Visit Provider Family Medicine
DX: E11.9 Type 2 diabetes mellitus without complications (principal)
CPT/HCPCS: 36415; 80048; 80061

== ENCOUNTER → 2023-06-22 | Outpatient (CLI) | payer MEDICARE, SELFPAY ==
--- OUTSIDE RECORDS SUMMARY | 2023-06-22 10:02 | XMS RPT_ITS | CCD ---
Author Name Unknown Address [address] [place] [address] Organization [facility] Care Team Providers Care Manager Operations And Procurement Name Role Phone Domingo Davenport MD Primary Care Provider LUKE FREEMAN Attending Unavailable LUKE FREEMAN Referring Unavailable DOMINGO DAVENPORT Primary Care Unavailable DOTTY ARAMBULA Attending Unavailable DOTTY ARAMBULA Primary Care Unavailable DOTTY ARAMBULA Admitting Unavailable Medications Current Medications Medication Drug Class(es) Dates Sig (Normalized) Sig (Original) aspirin 325 mg oral tablet (1 source) Platelet Aggregation Inhibitor, Nonsteroidal Anti-inflammatory Drug take 1 tablet by mouth once daily aspirin 325 MG tablet Take 325 mg by mouth daily 0 Active atenolol 25 mg oral tablet (1 source) beta-Adrenergic Jose Alberto take 2 tablets by mouth once daily atenolol (TENORMIN) 25 MG tablet Take 50 mg by mouth daily 0 Active clopidogrel 75 mg oral tablet (1 source) P2Y12 Platelet Inhibitor take 1 tablet by mouth once daily clopidogrel (PLAVIX) 75 MG tablet Take 75 mg by mouth daily 0 Active hydroCHLOROthiazide 12.5 mg oral tablet (1 source) Thiazide Diuretic take 2 tablets by mouth once daily hydrochlorothiazide (HYDRODIURIL) 12.5 MG tablet Take 25 mg by mouth daily 0 Active liraglutide (1 source) GLP-1 Receptor Agonist Start: 12-26-19 15 Liraglutide (VICTOZA SC) liraglutide VICTOZA SOPN 1.8mg, 0.6 mg SQ once a day LIRAGLUTIDE SOLN [phone] Hung Pearson MD 12-25-2014 [facility] ([id number]) 0 12/25/2014 Active lisinopril 10 mg oral tablet (1 source) Angiotensin Converting Enzyme Inhibitor take 2 tablets by mouth once daily lisinopril (PRINIVIL;ZESTRIL) 10 MG tablet Take 20 mg by mouth daily 0 Active Multiple Vitamin (MULTI-VITAMIN DAILY PO) (1 source) take 1 tablet by mouth once daily Multiple Vitamin (MULTI-VITAMIN DAILY PO) Take 1 tablet by mouth daily 0 Active NIFEdipine 20 mg oral capsule (1 source) Dihydropyridine Calcium Channel Jose Alberto take 3 capsules by mouth once daily NIFEdipine (PROCARDIA) 20 MG capsule Take 60 mg by mouth daily 0 Active rosuvastatin calcium 40 mg oral tablet (1 source) HMG-CoA Reductase Inhibitor Start: 08-16-19 rosuvastatin (CRESTOR) 40 MG tablet Problems Active Problems Problem Classification Problem Date Documented Da te Episodic/Chronic Aortic; peripheral; and visceral artery aneurysms (2 sources) Abdominal aortic aneurysm without rupture; Translations: [Abdominal aortic aneurysm, without rupture] Onset: 09-17-2016 Chronic Essential hypertension (1 source) Hypertensive disorder; Translations: [Essential (primary) hypertension] Onset: 09-17-2016 09-17-2016 Chronic Other aftercare (1 source) Surgical follow-up; Translations: [Encounter for surgical aftercare following surgery on the circulatory system] Episodic Other aftercare (2 sources) Encounter for surgical aftercare following surgery on the circulatory system; Translations: [Encounter for surgical aftercare following surgery on the circulatory system] Onset: 08-04-2022 Episodic Peripheral and visceral atherosclerosis (1 source) Renal artery stenosis; Translations: [Atherosclerosis of renal artery] Onset: 09-17-2016 09-17-2016 Chronic Unclassified (1 source) Infrarenal abdominal aortic aneurysm, without rupture; Translations: [Infrarenal abdominal aortic aneurysm, without rupture] Onset: 03-16-2022 Past or Other Problems Problem Classification Problem Date Documented Da te Episodic/Chronic Unclassified (1 source) Infrarenal abdominal aortic aneurysm, without rupture; Translations: [Infrarenal abdominal aortic aneurysm, without rupture] Onset: 08-04-2022 Results Test Name Value Interpretation Reference Range Facil ity Encounters Encounter Date Encounter Type Care Provider Facility Start: 06-02-2023 End: 06-02-2023 ambulatory DOTTY M [facility] Start: 08-04-2022 End: 08-05-2022 ambulatory [facility] Start: 01-08-2022 End: 01-08-2022 Subsequent hospital visit by physician Fox David MD Work Phone: [phone] Procedures Date Procedure Procedure Detail Performing Clinician Start: 01-08-2022 Dup-scan aorta ivc i liac vascl/bpgs complete Fox David MD Work Phone: Plan of Treatment Date Care Activity Detail Author Start: 03-16-2029 DTaP/Tdap/Td vaccine (2 - Td or Tdap) DTaP/Tdap/Td vaccine (2 - Td or Tdap) [facility] Start: 01-29-2022 Influenza vaccination Flu vaccine (# 1) [facility] Start: 1992 Shingles vaccine (1 of 2) Shingles v accine (1 of 2) [facility] Start: 1960 Hepatitis C screening Hepatitis C sc reen [facility] Start: 1954 Depression Screen Depression Screen [facility] Start: 1952 Lipid panel Lipids [facility] Start: 05-24-1943 COVID-19 Vaccine (#1) COVID-19 Vacci ne (#1) [facility] Start: 1942 Annual Wellness Visit (AWV) Annual W ellness Visit (AWV) [facility] Payers Date Payer Category Payer Medicare [id number] Social History Date Type Detail Facility Start: 10-10-2019 Tobacco smoking stat [facility] Ex-smoker [facility] End: 09-17-1986 History of tobacco use Current smoker [facility] Work Phone: End: 09-17-1986 History of tobacco use Cigarette Smoker [facility] Work Phone: Start: 10-10-2019 Cigarettes smoked current (pack per day) - Reported 1.5 [facility] Work Phone: Start: 10-10-2019 Tobacco use and exposure Smoke less tobacco non-user [facility] Work Phone: Start: 10-10-2019 Alcohol intake Current drinke r of alcohol (finding) [facility] Work Phone: Start: 1940 Sex Assigned At Not on file [facility] Work Phone: Evaluation note Note Date & Type Note [facility] Reason for Referral Specialty Diagnoses / Procedures Referred By Uriah t Referred To Contact Radiology Diagnoses AAA (abdominal aortic aneurysm) without rupture (HCC) Aftercare following surgery of the circulatory system Procedures VL Aorta IVC Bypass Graft Fox David MD [address] [facility] [address] [place] [address] Referral ID Status Reason Start Date Expiration Date Visits Re quested Visits Authorized [id number] Open 12/01/2021 12/01/2022 1 1 Summary Purpose Family History No Family History Records FoundNo Family History Records FoundNo Family History Records Found Advance Directives No Advanced Directives Records FoundNo Advanced Directives Records FoundNo Advanced Directives Records Found Additional Source Comments Care Teams (unrecognized sec tion and content) (unrecognized sect ion and content) No Status Records FoundNo Status Records FoundNo Status Records Found INFORMATION SOURCE (unrecogn ized section and content) DATE CREATED AUTHOR AUTHOR'S ORGANIZ ATION 08/06/2022 [facility] [facility] [facility] DATE CREATED AUTHOR AUTHOR'S ORGANIZ ATION 06/03/2023 [facility] FOR RECORDS PERTAINING TO PATIENTS WHO ARE OR HAVE BEEN ENROLLED IN A CHEMICAL DEPENDENCY/SUBSTANCEABUSE PROGRAM, SOME INFORMATION MAY BE OMITTED. This clinical summary was aggregated from multiple sources. Caution should be exercised in using it in the provision of clinical care. This summary normalizes information from multiple sources, and as a consequence, information in this document may materially change the coding, format and clinical context of patient data. In addition, data may be omitted in some cases. CLINICAL DECISIONS SHOULD BE BASED ON THE PRIMARY CLINICAL RECORDS. [facility]. provides no warranty or guarantee of the accuracy or completeness of information in this document.
[2023-06-22 10:11] LABS: Hematocrit 41.9 % (40-54); Hemoglobin 13.4 g/dL (13.0-16.5); Mean Corpuscular Hgb 28.3 pg (27.0-32.0); Mean Corpuscular Volume 88.6 fL (80-94); Mean Platelet Vol. 10.6 fl (6.2-12.0); Platelet Count 155 K/mm3 (150-450); RBC Distribution Width CV 13.3 % (11.6-14.6); RBC Distribution Width SD 43.1 fl (35.1-43.9); Red Blood Count 4.73 M/mm3 (4.6-6.2); White Blood Count 8.6 K/mm3 (4.4-11.0)
[2023-06-22 10:52] LABS: Albumin, Serum 3.8 g/dL (3.2-5.0); BUN 39 mg/dL (7-18); BUN/Creat Ratio 18.8 RATIO (10-20); Calcium,Total 9.6 mg/dL (8.5-10.1); Chloride 111 mmol/L (98-107); Creatinine, Serum 2.08 mg/dL (0.70-1.30); EST Glomerular Filtration Rate 33 mL/min (>60); Est Glom Filt Rate - Afr Amer 40 mL/min (>60); Glucose 161 mg/dL (74-106); Phosphorus 3.4 mg/dL (2.5-4.9); Potassium 4.7 mmol/L (3.5-5.1); Sodium Level 139 mmol/L (136-145)
[2023-06-22 11:06] LABS: Protein, Urine (Random) 19.5 mg/dL (<11.9); Protein:Creat Ratio 184 mg/g CRE (0-200)
== END | disposition home or self-care (01) ==
LOC: MTLAB 09:40
PROVIDERS: PCP Family Medicine; Referring Provider Internal Medicine Nephrology; Visit Provider Internal Medicine Nephrology
DX: N18.32 Chronic kidney disease, stage 3b (principal); E11.22 Type 2 diabetes mellitus with diabetic chronic kidney disease
CPT/HCPCS: 36415; 80069; 82570; 84156; 85027

== ENCOUNTER → 2023-09-27 | Outpatient (CLI) | payer MEDICARE, SELFPAY ==
[2023-09-27 15:22] LABS: AST(SGOT) 18 U/L (15-37); Alanine Aminotransfer ALT/SGPT 26 U/L (16-61); Albumin, Serum 3.9 g/dL (3.2-5.0); Alkaline Phosphatase 72 U/L (45-117); Anion Gap 7 (5-15); BUN 47 mg/dL (7-18); BUN/Creat Ratio 19.9 RATIO (10-20); Calcium,Total 9.6 mg/dL (8.5-10.1); Chloride 108 mmol/L (98-107); Creatinine, Serum 2.36 mg/dL (0.70-1.30); EST Glomerular Filtration Rate 28 mL/min (>60); Est Glom Filt Rate - Afr Amer 34 mL/min (>60); Globulin 3.8 g/dL (2.2-4.2); Glucose 190 mg/dL (74-106); Phosphorus 2.5 mg/dL (2.5-4.9); Potassium 4.9 mmol/L (3.5-5.1); Protein, Total 7.7 g/dL (6.4-8.2); Sodium Level 140 mmol/L (136-145)
[2023-09-27 15:32] LABS: PTHIN 93.7 pg/mL (18.4-80.1)
[2023-09-27 15:34] LABS: Microalbumin:Creatinine Ratio 87.8 mg/g CRE (<30 mg/g CRE)
== END | disposition home or self-care (01) ==
PROVIDERS: PCP Family Medicine; Referring Provider Internal Medicine Nephrology; Visit Provider Internal Medicine Nephrology
DX: N18.32 Chronic kidney disease, stage 3b (principal); E11.22 Type 2 diabetes mellitus with diabetic chronic kidney disease
CPT/HCPCS: 36415; 80053; 82043; 82570; 83970; 84100

== ENCOUNTER → 2024-02-22 | Outpatient (CLI) | payer MEDICARE, SELFPAY ==
--- NOTE | 2024-02-22 07:15 | ECHOD_ITS ---
Reason For Study: PRE-OPERATIVE Procedure This was a 2D Doppler, Color Flow transthoracic echocardiogram. Exam performed in department. Left Ventricle Normal LV size. Left ventricular systolic function is normal. The left ventricular ejection fraction is 60 %. No regional wall motion abnormalities noted. Right Ventricle Normal right ventricle. Normal systolic function. Atria Normal left atrium. Normal right atrium. Mitral Valve Normal mitral valve. Tricuspid Valve Normal tricuspid valve. Mild tricuspid valve insufficiency. Pulmonary artery systolic pressure is 34 mmHg. Aortic Valve Trisinus/trileaflet aortic valve. Mild focal aortic valve calcification. Pulmonic Valve Normal pulmonic valve. Great Vessels Normal aortic root. The pulmonary artery is normal size. Normal inferior vena cava. Pericardium/Pleural No pericardial effusion. MMode/2D Measurements & Calculations LVIDd: 5.3 cm IVSd: 1.1 cm LVOT diam: 2.0 cm LVIDs: 2.9 cm LVPWd: 1.1 cm LVOT area: 3.1 cm2 RVDd: 4.6 cm FS: 44.8 % asc Aorta Diam: 3.6 cm LAV(MOD-bp): 55.0 ml LVAd ap4: 27.9 cm2 LAV(MOD-bp) Indexed: 25.5 ml/m2 LVLd ap4: 7.9 cm LAV(MOD-sp2): 57.6 ml EDV(MOD-sp4): 82.3 ml LAV(MOD-sp4): 49.0 ml EDV(sp4-el): 83.3 ml LVAs ap4: 16.0 cm2 LVLs ap4: 6.7 cm ESV(MOD-sp4): 32.5 ml ESV(sp4-el): 32.1 ml EF(MOD-sp4): 60.5 % EF(sp4-el): 61.4 % LVAd ap2: 28.6 cm2 SV(MOD-sp4): 49.8 ml SV(MOD-sp2): 52.2 ml LVLd ap2: 7.8 cm EDV(MOD-sp2): 88.0 ml EDV(sp2-el): 89.2 ml LVAs ap2: 16.8 cm2 LVLs ap2: 6.7 cm ESV(MOD-sp2): 35.8 ml ESV(sp2-el): 35.7 ml EF(MOD-sp2): 59.3 % SV(sp4-el): 51.2 ml Ao sinus diam: 3.[address] Junction: 2.6 cm LA dimension(2D): 4.8 cm LA A4 area: 18.3 cm2 RA A4 area: 17.4 cm2 TAPSE: 2.0 cm Time Measurements MV dec time: 0.16 sec Doppler Measurements & Calculations MV E max greg: 91.3 cm/sec Med Peak E' Greg: 8.5 cm/sec MV dec slope: 561.7 cm/sec2 MV A max greg: 88.7 cm/sec E/E' med: 10.8 MV E/A: 1.0 Ao V2 max: 203.1 cm/sec LV V1 max: 82.8 cm/sec SV(LVOT): 66.0 ml Ao max P.5 mmHg LV V1 max P.7 mmHg Ao V2 mean: 148.9 cm/sec LV V1 mean P.5 mmHg Ao mean P.7 mmHg LV V1 mean: 58.2 cm/sec Ao V2 VTI: 48.3 cm LV V1 VTI: 21.4 cm AV (velocity ratio): 0.44 ARIADNE(I,D): 1.4 cm2 ARIADNE(V,D): 1.3 cm2 PA V2 max: 75.6 cm/sec TR max greg: 278.8 cm/sec PA max PG (full): 0.26 mmHg TR max P.1 mmHg ECHO/Echo Complete Interpretation Summary Normal LV size. Left ventricular systolic function is normal. The left ventricular ejection fraction is 60 %. Mild focal aortic valve calcification. Ordering Physician: Erick Diaz Referring Physician: Domingo Greer By: Leila Leiva RDCS
--- NOTE | 2024-02-22 16:20 | STRESSREP ---
Stress Test Report Pharmacologic myocardial perfusion stress test. 83-year-old man for preoperative cardiac evaluation Resting EKG demonstrates sinus rhythm with a rate of 72 bpm. Occasional premature ventricular complexes are noted. Resting blood pressure is 126/72 mmHg. 0.4 mg of regadenoson was infused per usual protocol followed by rapid intravenous saline flush injection. Continuous EKG monitoring was performed. The maximum heart rate was 86 bpm which was 61% of max impacted heart rate the maximum workload was 1 metabolic equivalent. At rest there were no ST or T wave changes noted to suggest ischemia and at peak infusion nonspecific ST changes were noted which did not meet the criteria for ischemia. No clinical angina is noted. The final blood pressure was 118/70 mmHg. Myocardial perfusion protocol. 14.9 mCi of technetium 99m sestamibi was injected at rest. 0.4 mg of regadenoson was infused per usual protocol. At peak infusion 44.5 mCi of technetium 99m sestamibi was injected stress images were obtained stress and rest images were reconstructed and compared in the short axis vertical long and horizontal long axis. Gated images were also obtained. Perfusion SPECT analysis: Review of the stress images demonstrate normal uptake of tracer noted in all areas of the myocardium. The resting images similar demonstrated normal uptake of tracer noted in all areas of the myocardium. No areas of reversibility are noted to suggest ischemia and no previous infarct is noted. Gated SPECT analysis: The gated ejection fraction is 63%. Conclusion: Normal pharmacologic myocardial perfusion stress test. Preserved ejection fraction.
== END | disposition home or self-care (01) ==
PROVIDERS: PCP Family Medicine; Referring Provider Nurse Practitioner Family; Visit Provider Nurse Practitioner Family
DX: Z01.818 Encounter for other preprocedural examination (principal); I12.9 Hypertensive chronic kidney disease with stage 1 through stage 4 chronic kidney disease, or unspecified chronic kidney disease; Z95.5 Presence of coronary angioplasty implant and graft; I35.0 Nonrheumatic aortic (valve) stenosis; E78.00 Pure hypercholesterolemia, unspecified; N18.9 Chronic kidney disease, unspecified
CPT/HCPCS: 78452; 93017; 93306; A9500; A4216; J2785

== ENCOUNTER → 2024-02-28 | Outpatient (CLI) | payer MEDICARE, SELFPAY ==
[2024-02-28 13:13] LABS: Anion Gap 8 (5-15); BUN 40 mg/dL (7-18); BUN/Creat Ratio 21.6 RATIO (10-20); Calcium,Total 9.4 mg/dL (8.5-10.1); Chloride 111 mmol/L (98-107); Creatinine, Serum 1.85 mg/dL (0.70-1.30); EST Glomerular Filtration Rate 38 mL/min (>60); Est Glom Filt Rate - Afr Amer 45 mL/min (>60); Glucose 106 mg/dL (74-106); Sodium Level 140 mmol/L (136-145)
== END | disposition home or self-care (01) ==
LOC: MFPLAB 10:44
PROVIDERS: PCP Family Medicine; Visit Provider Internal Medicine Nephrology
DX: N18.32 Chronic kidney disease, stage 3b (principal)
CPT/HCPCS: 36415; 80048

== ENCOUNTER → 2024-06-07 | Outpatient (CLI) | payer MEDICARE, SELFPAY ==
[2024-06-07 12:47] LABS: Albumin, Serum 3.8 g/dL (3.2-5.0); BUN 35 mg/dL (7-18); BUN/Creat Ratio 20.6 RATIO (10-20); Calcium,Total 9.1 mg/dL (8.5-10.1); Chloride 112 mmol/L (98-107); EST Glomerular Filtration Rate 41 mL/min (>60); Est Glom Filt Rate - Afr Amer 50 mL/min (>60); Glucose 119 mg/dL (74-106); Phosphorus 3.1 mg/dL (2.5-4.9); Potassium 4.3 mmol/L (3.5-5.1); Sodium Level 143 mmol/L (136-145)
== END | disposition home or self-care (01) ==
PROVIDERS: PCP Family Medicine; Referring Provider Internal Medicine Nephrology; Visit Provider Internal Medicine Nephrology
DX: E11.22 Type 2 diabetes mellitus with diabetic chronic kidney disease (principal); N18.32 Chronic kidney disease, stage 3b
CPT/HCPCS: 36415; 80069

== ENCOUNTER → 2024-06-14 | Outpatient (CLI) | payer MEDICARE, SELFPAY ==
[2024-06-14 11:34] LABS: Microalbumin,Random Urine 56.7 mg/L (NO RANGE EST.); Microalbumin:Creatinine Ratio 67.5 mg/g CRE (<30 mg/g CRE)
== END | disposition home or self-care (01) ==
LOC: POLAB3 10:42
PROVIDERS: PCP Family Medicine; Visit Provider Internal Medicine Nephrology
DX: E11.22 Type 2 diabetes mellitus with diabetic chronic kidney disease (principal); N18.9 Chronic kidney disease, unspecified
CPT/HCPCS: 82043; 82570

== ENCOUNTER 2024-07-03 10:28 | Observation (INO) | payer MEDICARE, SELFPAY ==
--- NOTE | 2024-06-07 09:03 | EKG12_ITS ---
Test Reason : PREOP Blood Pressure : */* mmHG Vent. Rate : 93 BPM Atrial Rate : 60 BPM P-R Int : 232 ms QRS Dur : 96 ms QT Int : 378 ms P-R-T Axes : * -35 16 degrees QTcB Int : 469 ms Sinus rhythm with 1st degree A-V block with frequent Premature ventricular complexes Left axis deviation Abnormal ECG Confirmed by Jack Morgan ([id number]), electronic news gathering editor MARTI HUA ([id number]) on 06/07/2024 2:16:07 PM Referred By: Patrick Morris Confirmed By: Jack Morgan
[2024-06-07 10:06] LABS: Absolute Neutrophil Count 6.4 X10^3/uL (2.0-7.7); Basophil# 0.05 X10^3/uL; Basophil% 0.6 % (0-1); Eosinophil# 0.24 X10^3/uL; Eosinophils% 2.8 % (0-5); Hematocrit 42.7 % (40-54); Hemoglobin 13.7 g/dL (13.0-16.5); Lymphocyte % 14.1 % (19-41); Mean Corp Hgb Conc 32.1 g/dL (32-36); Mean Corpuscular Hgb 27.8 pg (27.0-32.0); Mean Corpuscular Volume 86.6 fL (80-94); Mean Platelet Vol. 10.5 fl (6.2-12.0); Monocyte# 0.62 X10^3/uL; Monocyte% 7.3 % (0-10); NRBC Flagged by Analyzer 0 % (0-5); Neutrophil # 6.37 X10^3/uL (2.7-7.7); Platelet Count 156 K/mm3 (150-450); RBC Distribution Width CV 13.7 % (11.6-14.6); RBC Distribution Width SD 43.5 fl (35.1-43.9); Red Blood Count 4.93 M/mm3 (4.6-6.2); White Blood Count 8.5 K/mm3 (4.4-11.0)
[2024-06-07 11:20] LABS: Albumin, Serum 3.8 g/dL (3.2-5.0); Anion Gap 10 (5-15); BUN 35 mg/dL (7-18); BUN/Creat Ratio 20.3 RATIO (10-20); Calcium,Total 9.5 mg/dL (8.5-10.1); Chloride 111 mmol/L (98-107); Creatinine, Serum 1.72 mg/dL (0.70-1.30); EST Glomerular Filtration Rate 41 mL/min (>60); Est Glom Filt Rate - Afr Amer 49 mL/min (>60); Glucose 117 mg/dL (74-106); Potassium 4.2 mmol/L (3.5-5.1); Sodium Level 140 mmol/L (136-145)
[2024-06-07 12:40] LABS: Magnesium 2.3 mg/dL (1.6-2.6)
[2024-06-07 12:48] LABS: Hemoglobin A1c 6.4 % (3.8-5.6)
--- NOTE | 2024-06-07 14:13 | PAT.ANE_ITS ---
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 When Was Last Pacemaker Check QUESTION #4 FULL TEXT: You/Your Family Experience fever (hyperthermia) with Anesthesia Last Oral Intake Last Oral intake: Last Oral Intake NPO since Meds taken in AM with sips of water? 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: PONV - wind farm operations manager Female No 06/06/24 09:27 HX of Motion Sickness No 06/06/24 09:27 HX of N/V After Surgery Yes 06/06/24 09:27 Non-Smoker Yes 06/06/24 09:27 Duration of Surgery greater Yes 06/06/24 09:27 than 60 minutes Number of Risk Factors 3 06/06/24 09:27 PONV Score Moderate Risk 06/06/24 09:27 Height & Weight Height & Weight: Anesthesia: Height & Weight Height 5 ft 10 in 01/10/24 09:27 Respiratory Assessment Respiratory Assessment - wind farm operations manager: Respiratory Tract Infection Hx - wind farm operations manager Hx Respiratory Tract Infection Yes: HEAD COLD 06/06/24 09:27 STOP Sleep Apnea STOP Sleep Apnea - wind farm operations manager: STOP Sleep Apnea - wind farm operations manager Hx Hypertension Yes: CONTROLLED WITH MED 06/06/24 09:27 Hx Sleep Apnea No 06/06/24 09:27 CPAP BIPAP Do you snore loudly (louder Yes 06/06/24 09:27 than talking or can be heard Do you often feel tired/ Yes 06/06/24 09:27 fatigued/ sleepy during daytime? Has anyone observed you stop Yes 06/06/24 09:27 breathing during sleep? STOP Results Positive 06/06/24 09:27 QUESTION #5 FULL TEXT : Do you snore loudly (louder than talking or can be heard through closed doors)? 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 Specify any problems Hx of Preganancy in last 3 N/A 06/06/24 09:27 Months Nurse Filling Out Transfusion DSCHRIBER 06/06/24 09:27 & Questions: Date: 06/06/24 06/06/24 09:27 Time: 09:31 06/06/24 09:27 Patient unable to answer at this time (ie. confused, unrespo /Reproduction History /Reproductive History - wind farm operations manager: /Reproductive Hx- wind farm operations manager Hx Now No 06/06/24 09:27 Gestational Age (in weeks): EDC: Hx Hx Para Hx Section SAB No 06/06/24 09:27 [facility] Medical History (Updated 06/06/24 @ 09:42 by Yamile Landers) Wears glasses Arthritis History of renal disease High cholesterol Restless legs Back pain Dietary restriction Heartburn Former smoker Shortness of breath on exertion History of pain when walking History of edema History of stress test History of echocardiogram Cardiology follow-up encounter COVID-19 (~2021) Chronic kidney disease (CKD) Obesity Nonrheumatic aortic (valve) stenosis Essential (primary) hypertension Abdominal aortic aneurysm (AAA) Atherosclerotic heart disease of [place] coronary artery without angina pectoris Diabetes mellitus HLD (hyperlipidemia) Home Medications ?Medication ?Instructions ?Recorded ?Last Taken ?Type atenolol 50 mg tablet 50 mg PO QDAY 09/21/17 Unknown History clopidogrel 75 mg tablet 75 mg PO QDAY 09/21/17 Unknown History coenzyme Q10 100 mg capsule 100 mg PO QDAY 09/21/17 Unknown History rosuvastatin 40 mg tablet 40 mg PO DAILY 09/21/17 Unknown History aspirin 81 mg tablet,delayed 81 mg PO DAILY 07/13/23 Unknown History release (Adult Low Dose Aspirin) liraglutide 0.6 mg/0.1 mL (18 mg/3 1.8 mg subcut DAILY 30 days #9 mL 07/13/23 Unknown History mL) subcutaneous pen injector dapagliflozin propanediol 10 mg 10 mg PO DAILY 01/10/24 Unknown History tablet (Farxiga) GREEN LIPID MUSCLE 750 mg PO DAILY 06/06/24 Unknown History ascorbic acid (vitamin C) 500 mg 1 g PO DAILY 06/06/24 Unknown History tablet (C-500) cholecalciferol (vitamin D3) 50 50 mcg PO DAILY 06/06/24 Unknown History mcg (2,000 unit) capsule (Vitamin D3) glimepiride 2 mg tablet 2 mg PO DAILY 06/06/24 Unknown History krill oil 500 mg capsule 500 mg PO DAILY 06/06/24 Unknown History nifedipine 60 mg tablet,extended 60 mg PO DAILY 06/06/24 Unknown History release 24 hr vitamin C 500 mg-quercetin 225 1 cap PO DAILY 06/06/24 Unknown History mg-bioflavonoids, citrus 33 mg capsule (Quercetin Complex) Allergy/AdvReac Type Severity Reaction Status Date / Time No Known Allergies Allergy Verified 06/06/24 09:04 Family History Mother Cancer Surgical History (Updated 06/06/24 @ 09:42 by Yamile Landers) Hx of left cataract extraction Hx of right cataract extraction Hx of hernia repair History of appendectomy History of coronary artery stent placement (11/19/04) H/O endovascular stent graft for abdominal aortic aneurysm (02/2011) Social History Smoking Status: Former smoker how long ago did patient quit smoking: Age 42 alcohol intake: current alcohol intake frequency: holidays/special occasions only substance use type: does not use caffeine: Yes Type: carbonated beverages and coffee Number of servings: 1 what type of physical activity do you participate in: none seatbelt use: always do you feel safe at home: Yes Audit: Pertinent Findings Pertinent Findings EKG Perinent findings: 09/10/2017 sinus bradycardia otherwise within normal limits Stress test pertinent findings: 02/22/2024 EF 63% normal perfusion stress test Echo (EF%) pertinent findings: 02/22/2024 EF 60% mild aortic valve calcification Consult pertinent findings: Cardiology 01/10/2024 1 coronary artery disease status post stent placement multiple stents and echo and stress was checked for surgery and was negative to aortic valve stenosis stable 3 abdominal aortic aneurysm chronic aorta iliac stent graft 03/19/2011 stable for hypertension Recommendation Anesthesia Recommendation Anesthesia recommendation: OPTIMIZED for anesthesia
--- NOTE | 2024-06-25 22:15 | PCM.HP.BLA ---
History and Physical History and Physical Patient Name: Delmer Willard : 1940From:? DIETER HUNTER PA-C DATE OF PRE-OPERATIVE EXAM: 06/23/2024 DATE OF SURGERY:? 07/03/2024 SCHEDULED PROCEDURE:? Direct anterior left total hip arthroplasty HISTORY OF PRESENT ILLNESS: Preoperative history and physical exam was performed on June 23, 2024.? This is a 83-year-old male who has been having ongoing pain with his left hip.? Patient's pain can reach as high as an 8 out of 10.? He gets sharp occasional pains.? Pain is located in the lateral aspect of the hip radiating into the thigh.? Pain has been intermittent, sharp, and stabbing.? Pain is increased with walking.? He has tripped/stumbled secondary to the pain.? Patient has difficulty with activities of daily living including putting on his socks and shoes.? Patient states nighttime pain.? He has difficulty with ascending stairs.? Patient denies past history of surgery on the left hip.? Patient has tried oral medications including Tylenol without relief.? Patient has obtain surgical clearance from kidney specialist Dr. Emily Maddox, grounds manager Dr. mark Burroughs who recommends holding the Plavix 7 days before surgery, and Dr. Greer primary care physician.? Patient has medical history pertinent for type 2 diabetes mellitus with most recent A1c 6.4, stage III chronic kidney disease, hypertension, aortic valve stenosis, coronary artery disease, aortic aneurysm, sleep apnea.? He denies past history of DVT or pulmonary embolism.? Patient has been instructed to stop his Farxiga 3 days prior to surgery.? Denies any recent chest pain, shortness of breath, fevers chills or recent infections.? After failing conservative measures and discussing all treatment options was Dr. Patrick Morris, the patient does wish to proceed with a direct anterior left total hip arthroplasty. REVIEW OF SYSTEMS: Review Of Systems: Constitutional: Reports weight change, but denies change in appetite and fever. Cardiovasular: Reports heart murmur, but denies chest pain and irregular heartbeat. Respiratory: Denies cough, pneumonia, shortness of breath, tuberculosis and wheezing. Gastrointestinal: Denies constipation, diarrhea, heartburn, nausea, rectal itching, bloody stools and vomiting. Musculoskeletal: Reports gait disturbance, pain, trouble walking and weakness, but denies leg swelling. Skin: Reports history of shingles, but denies Raynaud's and tattoo. Neurological: Denies ambulatory dysfunction, dizziness, numbness/tingling and tremor. Psychiatric: Denies anxiety, insomnia and stress. Hematologic/Lymphatic: Reports bleeding/bruising tendency, but denies anemia and past transfusion. Reviewed and updated. PAST MEDICAL HISTORY: Advance Care Plan: Other Directive, LIVING WILL Past Medical History: Medical Problems: Diabetes, High Blood Pressure Kidney Disease/Renal Failure - stage 4 Covid- 19, Hypercholesterolemia heart murmur - as a child nonrheumatic aortic valve stenosis - had surgery for this Coronary Artery Disease (CAD) - had surgery for this hyperlipidemia abnormal aortic aneurysm - had surgery for this Sleep Apnea - not tested for this Accidents: None Surgical Hx: Heart Stent - x5-seward Hernia Repair - (1958) [place] Aortic Stent - [facility] Appendectomy back lymph node taken out - around 1949's Cataracts - bilateral Anesthesia Complications: Anesthesia Complications - nausea Assistive Devices: Glasses - reading Reviewed and updated. SOCIAL HISTORY: Social History: Marital: .Occupation: Retired.Work Status: Retired.Hand Dominance: Right-handed. Personal Habits:? Cigarette Use: Former.Smokeless Tobacco: Former user.E-Cigarette Use: Never used.Alcohol: Occasionally.Drug Use: Denies Use.Enjoy Exercising: Exercises 1-3 X/Week. Reviewed, no changes. VITALS: Ht: 68 Wt: 222lb Wt k.699 BMI: 33.8 BP: 140/80 Pulse: 52 Resp: 17 T: 97.5 T: 36.4C Pain Level: 7 O2SatR: 96 ALLERGIES: No Known Drug Allergy MEDICATIONS: Farxiga 5 mg take 1 tablet by mouth every day with breakfast, Liraglutide 18 mg/3ml 1.8mg subq daily for 30 days, Atenolol 50 mg 1 by mouth every day, Coenzyme Q-10 100 mg daily, Rosuvastatin Calcium 40 mg 1 by mouth every day, Clopidogrel Bisulfate 75 mg 1 by mouth every day, Lisinopril 20 mg 1 by mouth every day, Aspirin 81 Low Dose 81 mg 1 by mouth every day, Nifedipine ER Osmotic Release 60 mg 1 po qdaily, Acetaminophen Extra Strength 500 mg as needed PRE-OP EXAM: General appearance:NORMAL? Other: Eyes: Conjunctivae and lids: NORMAL? Pupils: ERR Ears, Nose, Mouth, and Throat: NORMAL? Other: Inspection of lips, teeth and gums: NORMAL?? Other: Neck: Examination of neck: no masses noted. Respiratory: Assessment of respiratory effort: NORMAL?? Other: ? Auscultation of lungs: clear to auscultation no wheezes, rhonchi or rales. Cardiovascular:? Auscultation of heart: regular rate and rhythm, positive systolic murmur PHYSICAL EXAMINATION: On exam patient walks with an antalgic gait.? Patient has tenderness to palpation over the lateral hip at the greater trochanteric region.? Range of motion hip flexion limited to 60, internal rotation neutral, external rotation 15 with increased pain.? Sensation intact to light touch. IMAGING STUDIES: Previous x-rays of the left hip reveal severe stage IV bone on bone osteoarthritis with subchondral sclerosis, osteophyte formation consistent with severe stage IV osteoarthritis. IMPRESSION: 1.? Severe left hip osteoarthritis 2.? Hypertension 3.? Type 2 diabetes mellitus: A1c 6.4 4.? Chronic kidney disease stage IV 5.? Hypercholesterolemia 6.? Aortic valve stenosis 7.? Coronary artery disease with previous heart stent 8.? Aortic aneurysm 9.? Sleep apnea 10.? Obesity with BMI 33.8 PLAN: Dr. Patrick Morris did discuss and review with the patient all treatment options including surgical versus nonsurgical options.? I will continue plan established by Dr. Patrick Morris.? Patient does wish to proceed with the above-stated procedure.? Potential risks, benefits, and complications of the procedure were discussed in detail including but not limited to , infection, nerve and blood vessel damage, persistent pain, numbness, tingling, paresthesias, blood clot, pulmonary embolism, and requirement for possible further surgery.? The patient expressed full understanding and has no further questions for the doctor.? Patient does agree to proceed with the above-stated procedure and has signed the surgery consent form. POST-OP MEDICATION PLAN: Pain Medications:? Postoperative pain regimen will be initiated by Dr. Patrick Morris in the hospital.? We will avoid nonsteroidal anti-inflammatories due to chronic kidney disease.? Patient will continue with our nutrition protocol.? Patient has been instructed to stop the Plavix 7 prior to surgery and the Farxiga 3 days prior to surgery. ? DVT Prophylaxis:? Aspirin 81 mg twice daily for 4 weeks postoperatively.? Denies past history of DVT or pulmonary embolism This dictation was created using voice recognition software. Phonetic and/or grammatical errors may exist. ___? I have re-examined the patient.? There are no clinical changes since date of exam. ___? See progress notes for changes. ___? Dictated on admission Date: ? Time: Signature:
[2024-07-03] VITALS (15 sets, daily range): BP systolic 128–161; BP diastolic 53–72; PULSE 54–72; RESP 15–20; TEMP 36.3–37.1; O2SAT 91–99; BMI 32.1
[2024-07-03] MEDS: Magnesium 1 GM over 15 mins IV (07:02)
[2024-07-03] MEDS: Acetaminophen 500 MG Tablet 1000 MG PO ×2 (07:03→13:25)
[2024-07-03] MEDS: Lactated Ringers 1,000 ML 999 ML IV (07:03)
[2024-07-03] MEDS: Gabapentin 600 MG Tablet PO (07:03)
[2024-07-03] MEDS: Insulin Lispro 100 UNIT/ML INSULN.PEN SC ×2 (07:05→17:42)
[2024-07-03 07:37] LABS: Bedside Glucose 192 mg/dL (74-106)
--- NOTE | 2024-07-03 07:39 | PCM.PRE.AN2 ---
ASA Classification* ASA Classification ASA Classification: 3 Assessment & Plan Anesthesia* Anesthesia Assessment Anesthesia Assessment: Discussed sedation and/or anesthesia options, risks, benefits, and alternatives with patient/parents/legal guardian/POA. Questions invited. The patient/parents/legal guardian/POA seems to understand and agrees to proceed with anesthesia plan. Reviewed the physical assessment, medical history, allergy history and patient home medications list prior to surgery/procedure/anesthetic and documented any changes. Performed airway and anesthesia risk assessments. Anesthesia Type Anesthesia Type: General (Mild aortic stenosis) Anesthesia Focused Assessment* Airway Assessment Mouth opens: >3 cm Mallampati Score: II Focused Labs Anesthesia Preop lab: CBC WBC 8.5 K/mm3 (4.4-11.0) 06/07/24 09:15 06/07/24 RBC 4.93 M/mm3 (4.6-6.2) 06/07/24 09:15 06/07/24 Hgb 13.7 g/dL (13.0-16.5) 06/07/24 09:15 06/07/24 Hct 42.7 % (40-54) 06/07/24 09:15 06/07/24 Plt Count 156 K/mm3 (150-450) 06/07/24 09:15 06/07/24 CHEMISTRY Potassium 4.3 mmol/L (3.5-5.1) 06/07/24 09:29 06/07/24 Sodium 143 mmol/L (136-145) 06/07/24 09:29 06/07/24 Magnesium 2.3 mg/dL (1.6-2.6) 06/07/24 09:15 06/07/24 Phosphorus 3.1 mg/dL (2.5-4.9) 06/07/24 09:06/07/24 BUN 35 mg/dL (7-18) H 06/07/24 09:29 06/07/24 Creatinine 1.70 mg/dL (0.70-1.30) H 06/07/24 09:29 06/07/24 Glucose 119 mg/dL (74-106) H 06/07/24 09:29 06/07/24 POC Glucose 192 mg/dL (74-106) H 07/03/24 06:57 07/03/24 COAG Pre-Assessment Diagnosis/Proposed Procedure Planned Operative Procedure(s): ANTERIOR LEFT TOTAL HIP ARTHROPLASTY Anesthesia History Anesthesia History - patient partner: Anesthesia History - patient partner Hx Hospitalization No 06/06/24 09:27 Any Problems With Anesthesia Yes: NAUSEA/VOMITING MANY 06/06/24 09:27 YRS AGO Cholinesterase deficiency No 06/06/24 09:27 You/Your Family Experience No 06/06/24 09:27 fever (hyperthermia) with Relationship Recent Exposure to Contagious No 07/03/24 06:57 Disease Does patient have nerve No 06/06/24 09:27 stimulator Patient instructed to have device shut off --Does patient have Pacemaker No 07/03/24 06:57 or ICD? When Was Last Pacemaker Check QUESTION #4 FULL TEXT: You/Your Family Experience fever (hyperthermia) with Anesthesia Last Oral Intake Last Oral intake: Last Oral Intake NPO since 04:30 07/03/24 06:57 Meds taken in AM with sips of No 07/03/24 06:57 water? Meds patient instructed to none 07/03/24 06:57 take am of surgery PONV PONV - patient partner: PONV - patient partner Female No 06/06/24 09:27 HX of Motion Sickness No 06/06/24 09:27 HX of N/V After Surgery Yes 06/06/24 09:27 Non-Smoker Yes 06/06/24 09:27 Duration of Surgery greater Yes 06/06/24 09:27 than 60 minutes Number of Risk Factors 3 06/06/24 09:27 PONV Score Moderate Risk 06/06/24 09:27 Height & Weight Height & Weight: Anesthesia: Height & Weight Height 5 ft 10 in 07/03/24 06:57 Weight: 101.5 kg 07/03/24 06:57 Body Mass Index (BMI) 32.1 07/03/24 06:57 Respiratory Assessment Respiratory Assessment - patient partner: Respiratory Tract Infection Hx - patient partner Hx Respiratory Tract Infection Yes: HEAD COLD 06/06/24 09:27 STOP Sleep Apnea STOP Sleep Apnea - patient partner: STOP Sleep Apnea - patient partner Hx Hypertension Yes: CONTROLLED WITH MED 06/06/24 09:27 Hx Sleep Apnea No 06/06/24 09:27 CPAP BIPAP Do you snore loudly (louder Yes 06/06/24 09:27 than talking or can be heard Do you often feel tired/ Yes 06/06/24 09:27 fatigued/ sleepy during daytime? Has anyone observed you stop Yes 06/06/24 09:27 breathing during sleep? STOP Results Positive 06/06/24 09:27 QUESTION #5 FULL TEXT : Do you snore loudly (louder than talking or can be heard through closed doors)? Tobacco Use History Tobacco Use History - patient partner: Tobacco Use History - patient partner Tobacco Use Non-smoker 02/25/21 13:30 Smoking Status Former smoker 06/06/24 09:27 Hx Tobacco Use No 06/06/24 09:27 Years Smoking Packs Smoked per Day Smoking Cessation Date was No - quit smoking greater 06/06/24 09:27 within the last 15 years than 15 years ago Hx Smoking Cessation Date Hx Smoking Cessation No 06/06/24 09:27 Counseling Hematologic Medial History Hematologic Hx - patient partner: Hematologic Medical Hx - clinical documentation spec Hx of Blood Transfusion No 06/06/24 09:27 Hx of Transfusion in last 3 No 06/06/24 09:27 Months Date of Last Transfusion (if within last 3 months) Ever experience any problems No 06/06/24 09:27 with transfusion(s)? Specify any problems Hx of Preganancy in last 3 N/A 06/06/24 09:27 Months Nurse Filling Out Transfusion DSCHRIBER 06/06/24 09:27 & Questions: Date: 06/06/24 06/06/24 09:27 Time: 09:31 06/06/24 09:27 Patient unable to answer at this time (ie. confused, unrespo /Reproduction History /Reproductive History - patient partner: /Reproductive Hx- patient partner Hx Now No 06/06/24 09:27 Gestational Age (in weeks): EDC: Hx Hx Para Hx Section SAB No 06/06/24 09:27 Active Medications Active Medications: Current Medications Generic Name Dose Route Start Last Admin Trade Name Freq PRN Reason Stop Dose Admin Acetaminophen 1,000 mg 07/03/24 10:25 07/03/24 07:03 Acetaminophen 500 Mg Tablet PO 07/03/24 10:26 1,000 mg X1 ONE Administration Tranexamic Acid 2,000 mg/ 0 mg 07/03/24 10:25 Sodium Chloride 100 ml OPERA.SITE 07/03/24 10:26 X1 ONE Sodium Chloride 77.4 ml/ 0 ml 07/03/24 10:25 Ropivacaine 200 mg/ OPERA.SITE 07/03/24 10:26 Epinephrine HCl 0.6 mg/ X1 ONE Ketorolac Tromethamine 30 mg/ Morphine Sulfate 5 mg Dexamethasone Sodium Phosphate 10 mg 07/03/24 10:25 Dexamethasone 10 Mg/Ml Vial IV 07/03/24 10:26 X1 ONE Gabapentin 600 mg 07/03/24 10:25 07/03/24 07:03 Gabapentin 600 Mg Tablet PO 07/03/24 10:26 600 mg X1 ONE Administration Lactated Ringer's 1,000 mls @ 999 mls/hr 07/03/24 10:25 07/03/24 07:03 IV 07/03/24 11:25 999 mls/hr .Q1H1M LAURI Administration Cefazolin Sodium 2 gm/ N/A 20 mls @ 400 mls/hr 07/03/24 10:25 IV 07/03/24 10:27 PREOP ONE Magnesium Sulfate 1 gm/ 102 mls @ 408 mls/hr 07/03/24 10:25 07/03/24 07:02 Dextrose IV 07/03/24 10:39 408 mls/hr X1 ONE Administration Sodium Chloride 1,000 mls @ 15 mls/hr 07/03/24 06:40 IV 07/08/24 19:59 .Q48H PENDING SALE TO [facility] Protocol Insulin Human Lispro 1 - 6 unit 07/03/24 10:25 07/03/24 07:05 Insulin Lispro 100 Unit/Ml Insuln.Pen SC 07/03/24 16:25 1 u Q4H PRN PRN Administration BG>/= 180, SEE PROTOCOL Protocol PFSH Medical History Wears glasses Arthritis History of renal disease High cholesterol Restless legs Back pain Dietary restriction Heartburn Former smoker Shortness of breath on exertion History of pain when walking History of edema History of stress test History of echocardiogram Cardiology follow-up encounter COVID-19 (~2021) Chronic kidney disease (CKD) Obesity Nonrheumatic aortic (valve) stenosis Essential (primary) hypertension Abdominal aortic aneurysm (AAA) Atherosclerotic heart disease of [place] coronary artery without angina pectoris Diabetes mellitus HLD (hyperlipidemia) Home Medications ?Medication ?Instructions ?Recorded ?Last Taken ?Type atenolol 50 mg tablet 50 mg PO QDAY 09/21/17 07/02/24 History clopidogrel 75 mg tablet 75 mg PO QDAY 09/21/17 06/26/24 History coenzyme Q10 100 mg capsule 100 mg PO QDAY 09/21/17 07/02/24 History rosuvastatin 40 mg tablet 40 mg PO DAILY 09/21/17 07/02/24 History aspirin 81 mg tablet,delayed 81 mg PO DAILY 07/13/23 06/26/24 History release (Adult Low Dose Aspirin) liraglutide 0.6 mg/0.1 mL (18 mg/3 1.8 mg subcut DAILY 30 days #9 mL 07/13/23 06/26/24 History mL) subcutaneous pen injector dapagliflozin propanediol 10 mg 10 mg PO DAILY 01/10/24 06/30/24 History tablet (Farxiga) GREEN LIPID MUSCLE 750 mg PO DAILY 06/06/24 07/02/24 History ascorbic acid (vitamin C) 500 mg 1 g PO DAILY 06/06/24 07/02/24 History tablet (C-500) cholecalciferol (vitamin D3) 50 50 mcg PO DAILY 06/06/24 07/02/24 History mcg (2,000 unit) capsule (Vitamin D3) glimepiride 2 mg tablet 2 mg PO DAILY 06/06/24 07/02/24 History krill oil 500 mg capsule 500 mg PO DAILY 06/06/24 07/02/24 History nifedipine 60 mg tablet,extended 60 mg PO DAILY 06/06/24 07/02/24 History release 24 hr vitamin C 500 mg-quercetin 225 1 cap PO DAILY 06/06/24 07/02/24 History mg-bioflavonoids, citrus 33 mg capsule (Quercetin Complex) Allergy/AdvReac Type Severity Reaction Status Date / Time No Known Allergies Allergy Verified 07/03/24 06:53 Family History Mother Cancer Surgical History Hx of left cataract extraction Hx of right cataract extraction Hx of hernia repair History of appendectomy History of coronary artery stent placement (06/22/05) H/O endovascular stent graft for abdominal aortic aneurysm (02/2011) Social History Smoking Status: Former smoker how long ago did patient quit smoking: Age 42 alcohol intake: current alcohol intake frequency: holidays/special occasions only substance use type: does not use caffeine: Yes Type: carbonated beverages and coffee Number of servings: 1 what type of physical activity do you participate in: none seatbelt use: always do you feel safe at home: Yes Review of Systems (Anesthesia) ROS Narrative System reviewed and no additional complaints, except as documented.
--- NOTE | 2024-07-03 07:45 | RAD_ITS ---
EXAM: XR Pelvis, 1 or 2 Views CLINICAL INDICATION: TECHNIQUE: Frontal view of the pelvis. COMPARISON: No relevant prior studies available. FINDINGS: BONES/JOINTS: Total left hip replacement. No acute fracture. No dislocation. SOFT TISSUES: Unremarkable. RAD/Hip 1 view with Pelvis IMPRESSION: Total left hip replacement. [facility]
--- NOTE | 2024-07-03 08:45 | FEM._PTH ---
PATIENT: VIVEK GANHDI LOC: MS3 U#:[id number] AGE/SX: 83/M ROOM: FL316 RE07/03/[address]: Dr. Patrick Morris MD : 1940 BED: 1 DIS: 07/04/2024 SPEC #: [id number] RECD: 07/03/24 13:31 STATUS: BRIAN REArmond #: [id number] RHONDA: 07/03/24 08:[address]: Patrick Morris DEPT: SURGICAL PATHOLOGY RECD BY: Roxy Manzano ENTERED: 07/03/24 13:49 SP TYPE: FEM HEAD OTHR DR: MD Dr. Domingo Basurto MD Tissues: Hip, NOS Procedures: Decalcification bone/plaque Surgery Specimen Level IV HEADER OPERATION: Anterior left total hip arthroplasty PRE-OP DIAGNOSIS: Severe left hip osteoarthritis TISSUE SUBMITTED: Left femoral head MICROSCOPIC DIAGNOSIS Left hip bone and soft tissue, total hip replacement/resection: Femoral head with degenerative osteoarthritic changes. Fragments of fibroadipose tissue, fibroconnective tissue and reactive synovial tissue. YINKA: 07/06/2024 MICROSCOPIC DESCRIPTION Slides are reviewed. GROSS DESCRIPTION Received is one container labeled with the patient's name and designated bone and soft tissue left hip. The specimen consists of a gandhi femoral head measuring 5 x 5 x 4.5 cm. Also present in the container is a detached piece of bone consistent with portion of femoral neck measuring 4 x 4 x 1.2cm. The articular surface displays prominent osteophyte formation, eburnation and bone erosion. Also present in the specimen container are multiple irregular fragments of bone reamings measuring in aggregate 7 x 7.5 x 2 cm. A piece of soft tissue is noted at the top of the femoral head measuring 2 x 1.7 x 0.2cm. Gas Tester sections are submitted in two cassettes as follows: 1 - soft tissue, (soft tissue submitted at top of femoral head is submitted in entirety), 2 - femoral head after decalcification. 07/03/2024 TC:5 CPT: 02660, 01397
[2024-07-03] MEDS: Lactated Ringers 1,000 ML 75 ML IV ×2 (09:00→10:40)
[2024-07-03 09:26] LABS: Bedside Glucose 110 mg/dL (74-106)
[2024-07-03] MEDS: Cefazolin 2 GM in Syringe 10 ML IV (09:35)
[2024-07-03] MEDS: dexAMETHasone 10 MG/ML Vial IV (09:41)
[2024-07-03] MEDS: JPS (Morphine 10mg/ml) OPERA.SITE (10:30)
[2024-07-03] MEDS: TXA in NS 100ml (Placed in Wound) OPERA.SITE (10:31)
--- NOTE | 2024-07-03 10:40 | OP.PCM_ITS ---
Operative Report (Standard) Operative Information Date of Procedure: 07/03/24 Pre-Operative Diagnosis: Left hip primary osteoarthritis Post-Operative Diagnosis: Left hip primary osteoarthritis Surgery/Procedure Performed: Left minimally invasive direct anterior hip replacement print room worker: Yes Coal Conveyor Operator: Daniele Aranda Tasks completed by entry level assistant manager: Other (See body of operative report) Additional bilingual legal assistant?: No Type of Anesthesia: General RN Documented Start/Stop Times: Operation Date: 07/03/24 08:45 Case Time Into Pre-Op 07/03/24 06:37 Out of Pre-Op 07/03/24 09:16 Anesthesia Start 07/03/24 09:20 Into Room 07/03/24 09:20 Procedure Start 07/03/24 09:47 Procedure Start Time: 09:47 Procedure Stop Time: 11:00 Select all DRAINS/GRAFTS/IMPLANTS that apply: Prosthetic device Prosthetic device details: See body of operative report Special Medications: 2 g Ancef, 1 g TXA at incision, 1 g TXA closure, 10 mg Decadron, joint cocktail (5 mg Duramorph, 30 mL of 0.5% Ropivicaine, 1000 units of epinephrine, 30 mg of Toradol) Estimated Blood Loss: 300 mL Fluids Replaced: 1000 L crystalloid Specimen collected: Yes Description of specimen(s) removed: Bony cuts Description of surgery: Components used: 1. Insignia Vikki femoral stem size 6 standard 2. Vikki trident 2 acetabular shell size 54 mm 3. Vikki X3 polyethylene E 4. Vikki Biolox delta 36mm, 0mm femoral head Brief history operative indications: 83 yo M who failed conservative measures for their hip osteoarthritis. X-rays were consistent with osteoarthritis including joint space narrowing, osteophyte formation and subchondral cysts. Total hip replacement was discussed with the patient with risks and benefits including but not limited to blood loss, DVTs, PEs, neurovascular damage, dislocation, general risks of anesthesia including loss of life. Patient demonstrated an understanding medical clearance is obtained the patient was consented for surgery. Procedure: On the date of procedure the patient's L hip was marked in the preoperative area. Patient was then taken back to the operating room where anesthesia assumed control of the C-spine and airway and administered anesthetic. Patient was transferred to the operating table and placed in the supine position. The hips were placed at the break of the bed and a sacral bump was placed. The L lower extremity was then prepped out in a sterile fashion using chlorhexidine while the surgeon scrubbed. The PA was vital in the positioning of the patient. Upon reentering the room the L lower extremity was draped in the standard orthopedic fashion and the incision was marked. A timeout was called and everyone agreed upon the side, the site, the procedure be performed, antibody given, and patient's identity. At this time incision was made through skin, subcutaneous tissue, and fat down to fascia. The fascia was then incised and the TFL was retracted laterally. A retractor was placed on the lateral border of the femoral neck. Attention was directed to the inferior portion of the approach and all crossing vessels were identified and appropriately coagulated. A retractor was then placed on the medial portion of the femoral neck. The anterior capsule was then cleared of all soft tissue and then H shaped capsulotomy was made. The retractors were then placed inside the capsule. The femoral neck was identified and a cleanup cut was made. At this time a power corkscrew was used to remove the femoral head. Attention was then turned toward the acetabulum where the soft tissues were appropriately retracted and the acetabulum was sequentially reamed to 54 mm. A 54 mm cup was then selected and impacted into place. Acetabular liner was impacted into place and locking mechanism was verified. The position of the acetabular cup was then verified under live fluoroscopy. Attention was then turned to the femur. Soft tissue releases on the medial and lateral femoral neck were appropriately done, the leg was externally rotated and lateralized. A Felipe retractor was placed medially and proximally to the gr eater trochanter this allowed appropriate visualization and exposure of the femoral canal. Rongeour was then used to remove excess lateral bone. A canal finder and entry broach were used to open the proximal canal. Once we verified we were down the femoral canal we subsequently broached up to a size 6 femur. The appropriate neck was placed in the previously selected head was trialed with a 0 mm neck. Traction was pulled and the hip was reduced with internal rotation. Once it was appropriately reduced and stability was checked. There was minimal shuck, equal leg lengths and appropriate stability with hyperextension and external rotation as well as with 90? flexion and internal rotation. Fluoroscopy was then also used to verify the position of the components and leg lengths using the contralateral side for comparison. The trial components were then dislocated the proximal femur was again exposed and the components were removed from the wound. The final components were verified and opened. The wound was copiously irrigated out with normal saline. The acetabulum was checked for any residual debris. The final components were placed and impacted. Traction and internal rotation were again used to reduce the hip. After adequate reduction the hip remained stable with appropriate leg lengths. The final components were once again checked with live fluoroscopy and were found to be satisfactory. The wound was then copiously irrigated with normal saline once more, and hemostasis was obtained. Closure was then done using #1 Vicryl runner to close the fascia. A 2-0 vicryl interuppted sutures were used to close the subcutaneous skin. A 3-0 Monocryl and Steri-Strips were used for final skin closure. A Silverlon dressing was placed. Patient was awakened by anesthesia and transferred to the [facility]. Patient was then transferred to the PACU for recovery. Postoperative plan: Patient will get 24 hours postop antibiotics. Patient will get in-house physical therapy and will be weight-bear as tolerated. Patient will follow up in office in 2 weeks for a wound check and x-rays. Aspirin 81 mg twice daily. Surgical Findings: Stable hip with equal leg lengths. Stage IV osteoarthritis Complications Complications: No Admit VTE Documentation VTE Present on Admission: No VTE Mechan Device Prophylaxis: SCD's and Thigh High PRASHANTH Hose VTE Pharm Prophylaxis ordered?: Yes
--- NOTE | 2024-07-03 11:17 | PCM.POST.ANE ---
Anesthesia: Postop Eval I Current Vital Signs Temperature: 98.1 F Pulse Rate: 72 Blood Pressure: 141/56 Respiratory Rate: 20 Pulse Ox: 94 Assessment Airway patent: Yes Spontaneous unlabored respirations: Yes nausea: No Vomiting: No Anesthesia Complication: No Fluid Hydration Crystalloid volume administer (ml): 1,200 Total IV fluid infused: 1,200 Progress Note Anesthesia document: Postop Eval 1 completed: Yes
--- NOTE | 2024-07-03 11:25 | RAD_ITS ---
EXAM: XR Left Hip With Pelvis When Performed, 1 View CLINICAL INDICATION: TECHNIQUE: Frontal view of the left hip with pelvis when performed. COMPARISON: No relevant prior studies available. FINDINGS: BONES/JOINTS: Total hip replacement. Intact hardware. No acute fracture. No dislocation. SOFT TISSUES: Soft tissue emphysema and swelling. RAD/Hip Min 2 Views (Portable) IMPRESSION: Status post total hip replacement in anatomic position. Reading Location: [facility]
--- NOTE | 2024-07-03 11:54 | POSTOPAN2_ITS ---
Anesthesia Postop Eval I Sum Postop Eval Completion status Anesthesia document: Postop Eval 1 completed: Yes Anesthesia Postop Eval I Summary Anesthesia Postop Eval I Summary: Anesthesia Postop Eval I: Assessment Summary Airway patent Yes 07/03/24 11:17 [email or web address] Spontaneous unlabored Yes 07/03/24 11:17 [email or web address] respirations Mental status nausea No 07/03/24 11:17 [email or web address] Vomiting No 07/03/24 11:17 [email or web address] Anesthesia Postop Eval I: Fluid Summary Crystalloid volume administer 1,200 07/03/24 11:17 [email or web address] (ml) Colloids volume administered ( ml) Blood Product volume administered (ml) Total IV fluid infused 1,200 07/03/24 11:17 [email or web address] Anesthesia Postop Eval I: Summary Notes Anesthesia Complication No 07/03/24 11:17 [email or web address] Anesthesia Complication Comment: Post-operative progress note Anesthesia: Postop Eval II Evaluation Mental status: Awake Pain Level: 0 nausea: No Vomiting: No
--- NOTE | 2024-07-03 11:54 | PCM.POSTANE2 ---
Anesthesia Postop Eval I Sum Postop Eval Completion status Anesthesia document: Postop Eval 1 completed: Yes Anesthesia Postop Eval I Summary Anesthesia Postop Eval I Summary: Anesthesia Postop Eval I: Assessment Summary Airway patent Yes 07/03/24 11:17 [email or web address] Spontaneous unlabored Yes 07/03/24 11:17 [email or web address] respirations Mental status nausea No 07/03/24 11:17 [email or web address] Vomiting No 07/03/24 11:17 [email or web address] Anesthesia Postop Eval I: Fluid Summary Crystalloid volume administer 1,200 07/03/24 11:17 [email or web address] (ml) Colloids volume administered ( ml) Blood Product volume administered (ml) Total IV fluid infused 1,200 07/03/24 11:17 [email or web address] Anesthesia Postop Eval I: Summary Notes Anesthesia Complication No 07/03/24 11:17 [email or web address] Anesthesia Complication Comment: Post-operative progress note Anesthesia: Postop Eval II Evaluation Mental status: Awake Pain Level: 0 nausea: No Vomiting: No
[2024-07-03 12:03] LABS: Bedside Glucose 165 mg/dL (74-106)
--- NOTE | 2024-07-03 13:15 | PCM.CONS.GEN ---
Assessment & Plan Assessment/Plan (1) Hip pain: PLAN: Plan This 83-year-old gentleman is being admitted for elective left hip surgery for left hip primary osteoarthritis 1. Perioperative management for left hip endovasculitis: Patient had left left minimally invasive direct anterior hip replacement on 07/03/2024. Voiding urine spontaneously. Passing flatus. Minimal pain over the operative site. No hematoma or bruise. Continue with incentive spirometry. PT OT and DVT prophylaxis as per attending physician 2. CAD status post stents: Continue home medication. Last echo in May 2019 shows EF 65%. Had bypass surgery in 2001. Continue baby aspirin, Plavix, atenolol, nifedipine. Follows [place] [facility] 3. Mild aortic stenosis: Last echo shows mean AV gradient 12 mmHg, calculated ARIADNE area 1.9 cm?. 4. Chronic abdominal aortic aneurysm: Patient had aortobiiliac stent graft in February 2011. No acute complaint. 5. Diabetes mellitus type 2: Accu-Chek before meals and at bedtime with Humalog sliding scale coverage and hypoglycemia protocol. 6. Other comorbidities include hypertension and dyslipidemia: Continue home med HPI Consult Data Date of Consult: 07/03/24 HPI Narrative Reason for Consultation: Perioperative management of left hip primary osteoarthritis HPI Narrative: VIVEK GANDHI, is a 83 M who is being admitted under Dr. Morris service after left minimally invasive direct anterior hip replacement for left hip primary osteoarthritis. Patient voided urine. He is passing flatus. No nausea vomiting or dizziness. Denies acute chest pain pressure or tightness. Has history of CAD status post 3 stents. Patient has a left hip primary osteoarthritis which failed initial conservative treatment therefore taken for the scheduled surgery [facility] Medical History Wears glasses Arthritis History of renal disease High cholesterol Restless legs Back pain Dietary restriction Heartburn Former smoker Shortness of breath on exertion History of pain when walking History of edema History of stress test History of echocardiogram Cardiology follow-up encounter COVID-19 (~2021) Chronic kidney disease (CKD) Obesity Nonrheumatic aortic (valve) stenosis Essential (primary) hypertension Abdominal aortic aneurysm (AAA) Atherosclerotic heart disease of [place] coronary artery without angina pectoris Diabetes mellitus HLD (hyperlipidemia) Home Medications ?Medication ?Instructions ?Recorded ?Last Taken ?Type atenolol 50 mg tablet 50 mg PO QDAY 09/21/17 07/02/24 History clopidogrel 75 mg tablet 75 mg PO QDAY 09/21/17 06/26/24 History coenzyme Q10 100 mg capsule 100 mg PO QDAY 09/21/17 07/02/24 History rosuvastatin 40 mg tablet 40 mg PO DAILY 09/21/17 07/02/24 History aspirin 81 mg tablet,delayed 81 mg PO DAILY 07/13/23 06/26/24 History release (Adult Low Dose Aspirin) liraglutide 0.6 mg/0.1 mL (18 mg/3 1.8 mg subcut DAILY 30 days #9 mL 07/13/23 06/26/24 History mL) subcutaneous pen injector dapagliflozin propanediol 10 mg 10 mg PO DAILY 01/10/24 06/30/24 History tablet (Farxiga) GREEN LIPID MUSCLE 750 mg PO DAILY 06/06/24 07/02/24 History ascorbic acid (vitamin C) 500 mg 1 g PO DAILY 06/06/24 07/02/24 History tablet (C-500) cholecalciferol (vitamin D3) 50 50 mcg PO DAILY 06/06/24 07/02/24 History mcg (2,000 unit) capsule (Vitamin D3) glimepiride 2 mg tablet 2 mg PO DAILY 06/06/24 07/02/24 History krill oil 500 mg capsule 500 mg PO DAILY 06/06/24 07/02/24 History nifedipine 60 mg tablet,extended 60 mg PO DAILY 06/06/24 07/02/24 History release 24 hr vitamin C 500 mg-quercetin 225 1 cap PO DAILY 06/06/24 07/02/24 History mg-bioflavonoids, citrus 33 mg capsule (Quercetin Complex) Allergy/AdvReac Type Severity Reaction Status Date / Time No Known Allergies Allergy Verified 07/03/24 06:53 Family History Mother Cancer Surgical History Hx of left cataract extraction Hx of right cataract extraction Hx of hernia repair History of appendectomy History of coronary artery stent placement (11/19/04) H/O endovascular stent graft for abdominal aortic aneurysm (02/2011) Social History Smoking Status: Former smoker how long ago did patient quit smoking: Age 42 alcohol intake: current alcohol intake frequency: holidays/special occasions only substance use type: does not use caffeine: Yes Type: carbonated beverages and coffee Number of servings: 1 what type of physical activity do you participate in: none seatbelt use: always do you feel safe at home: Yes ROS ROS Narrative Constitutional: Reports chronic fatigue and weakness from arthritis. No fever. HEENT: Reports systems reviewed and no addt'l complaints, except as documented Respiratory/Chest: No acute shortness of breath or respiratory distress or wheezing. CVS: No acute chest pain or tightness or pressure Gastrointestinal: Denies coffee ground emesis, hematemesis or vomiting Genitourinary: Denies burning urination or new urinary tract symptoms Musculoskeletal: Chronic left hip arthritis denies acute joint pain or limited range of motion. No acute injury Neurologic: Denies seizure-like symptoms. No acute strokelike symptoms skin: No ulcer. No rash Endocrinology: Reports systems reviewed and no addt'l complaints, except as documented Hematologic/Lymphatic: Reports systems reviewed and no addt'l complaints, except as documented Rest 14 ROS are negative except as mentioned in HPI Physical Exam Narrative General: Alert, Oriented x3, Cooperative HEENT: Atraumatic, PERRLA, EOMI, Normocephalic Oral: Oral mucosa moist no Gingival or Mucosal Lesions/ Ulcerations Neck: Supple, No JVD, Negative Carotid Bruits Chest wall/Lungs: Air entry diminished in bilateral lung bases. No crepitation/rhonchi Cardiovascular: Regular rate, Regular Rhythm, Normal S1, Normal S2, ejection systolic murmur grade 4/6 with radiation to carotid Abdomen: Bowel Sounds Present, Soft, Non Tender, Non-Distended : No dysuria. No renal angle tenderness. No suprapubic tenderness. Extremities: No edema, Capillary Refill Less than 3 Seconds Skin: Left hip surgical dressing is dry. No palpable hematoma or bruise Musculoskeletal: Mild perioperative tenderness. No acute tenderness to other palpation of Joints or Extremities Neurological: Cranial nerves II-XII grossly intact, DTR 2+/4. No acute focal neurological deficit. Psych/Mental Status: Normal Affect, Appropriate. Lab / Micro Data 06/07/24 09:15 06/07/24 09:15 Labs: Laboratory Results - last 24 hr 07/03/24 06:57: POC Glucose 192 H 07/03/24 09:08: POC Glucose 110 H 07/03/24 11:44: POC Glucose 165 H Imaging Radiology Impression Hip/Pelvis X-Ray 07/03/24 07:45 IMPRESSION: Total left hip replacement. Reading Location[facility] Hip X-Ray 07/03/24 11:25 IMPRESSION: Status post total hip replacement in anatomic position. Reading [facility] Charges/Coding Visit Charges Office Visits / Consults: 92447 OV L4 Est 30min
[2024-07-03] MEDS: Ensure Surgery 237 ML LIQUID PO (13:24)
[2024-07-03] MEDS: oxyCODONE 5 MG Tablet PO (13:24)
[2024-07-03] MEDS: Cefazolin 1 GM/50 ML BAG IV (17:42)
[2024-07-03 18:05] LABS: Bedside Glucose 239 mg/dL (74-106)
[2024-07-04] MEDS: Acetaminophen 500 MG Tablet 1000 MG PO ×2 (00:24→05:40)
[2024-07-04] MEDS: Atorvastatin Calcium 80 MG Tablet PO (00:24)
[2024-07-04] MEDS: Aspirin 81 MG TAB.CHEW PO ×2 (00:24→08:08)
[2024-07-04] MEDS: Senna/Docusate Sodium 1 Tablet 2 TABLET PO ×2 (00:25→08:07)
[2024-07-04] MEDS: Insulin Lispro 100 UNIT/ML INSULN.PEN SC (00:28)
[2024-07-04] MEDS: Cefazolin 1 GM/50 ML BAG IV (00:31)
[2024-07-04 00:33] VITALS: BMI 32.1
[2024-07-04 00:47] VITALS: BP 162/69; PULSE 58; RESP 18; TEMP 36.6; O2SAT 97
[2024-07-04 01:27] LABS: Bedside Glucose 291 mg/dL (74-106)
[2024-07-04 05:30] VITALS: BMI 32.1
[2024-07-04 05:32] VITALS: BP 158/60; PULSE 57; RESP 18; TEMP 36.4; O2SAT 96
[2024-07-04] MEDS: 0.9% Saline Lock 10 ML Syringe IV (05:40)
--- NOTE | 2024-07-04 07:02 | PCM.PN.ORT ---
Subjective Subjective The patient was sitting in bed upon examination. Patient denies any chest pain, shortness of breath, dizziness, lightheadedness, nausea or vomiting, or calf pain. Pain is controlled on medications. No adverse overnight events. Patient states he feels great this morning. He has no pain. He is very pleased with outcome of surgery so far. Patient is wishing to go home today. He has outpatient physical therapy established. Objective Data Objective Data Vital Signs: Vital Signs Temp Pulse Resp BP Pulse Ox O2 Del Method O2 Flow Rate 97.6 F L 57 L 18 158/60 H 96 Room Air 4 07/04/24 05:32 07/04/24 05:32 07/04/24 05:32 07/04/24 05:32 07/04/24 05:32 07/04/24 05:32 07/03/24 14:42 Oxygen Flow Rate (L/min) 4 Oxygen Delivery Method Room Air Weight: 101.5 kg Body Mass Index (BMI) 32.1 Intake & Output: Intake and Output for Last 24 Hours 07/02/24 07/03/24 07/04/24 23:59 23:59 23:59 Intake Total 3647 / 3647 50 / 50 Output Total 250 / 250 Balance 3397 / 3397 50 / 50 Lab / Micro Data 07/04/24 06:58 06/07/24 09:15 Labs: Laboratory Results - last 24 hr 07/03/24 06:57: POC Glucose 192 H 07/03/24 09:08: POC Glucose 110 H 07/03/24 11:44: POC Glucose 165 H 07/03/24 16:59: POC Glucose 239 H 07/04/24 00:27: POC Glucose 291 H Micro: Microbiology 06/07/24 09:15 Swab (Method) Nasal Screen MRSA/MSSA - Final Radiography Diagnostic Testing: Radiology Impression Hip/Pelvis X-Ray 07/03/24 07:45 IMPRESSION: Total left hip replacement. Reading [facility] X-Ray 07/03/24 11:25 IMPRESSION: Status post total hip replacement in anatomic position. Reading [facility] Physical Exam Narrative Vital signs stable and afebrile. SCDs and PRASHANTH hose are in place bilaterally Left hip is soft and supple Patient is able to plantarflex and dorsiflex actively. Sensation is intact to light touch to saphenous, sural, superficial and deep peroneal, and tibial distribution. Dressing is clean dry and intact. Negative Homans bilaterally, negative signs and symptoms of DVT. Const alert, oriented x3 and no apparent distress Assessment & Plan Assessment/Plan (1) Status post total hip replacement, left: PLAN: 1. S/P direct anterior left total hip arthroplasty POD #1 2. Continue Pain Medications: Tylenol and oxycodone. We are not able to use anti-inflammatories due to his chronic kidney disease and heart history. Patient states he has 0/10 pain today. I did discuss with him that I will send him home with a very small amount of the oxycodone in case he needs it for any breakthrough pain. He did voiced understanding. 3. DVT Prophylaxis: Take 81 mg aspirin twice daily for 4 weeks postoperatively for DVT prophylaxis. Patient denies past history of DVT or pulmonary embolism. After 4 weeks we will then go back to his normal 81 mg aspirin daily 4. PT/OT: Weightbearing as tolerated with walker. Continue to follow anterior hip precautions 5. H & H: 10.8/32.8, asymptomatic. Monitoring patient's hemoglobin and hematocrit with postoperative anemia without any intra operative complications. At this time no treatment is required. BMP pending. Preoperatively patient has documented ongoing chronic kidney disease stage IV. Preop creatinine 1.70 and BUN 35. GFR 50. I would have patient continue management with primary care provider in the future for continued monitoring. 6. Reactive leukocytosis: 11.2, Afebrile. Patient did receive Decadron intraoperatively. No clinical signs of infection. 7. Encouraged Incentive Spirometry 8. Patient is aware of postoperative constipation that can occur from 1-3 days postoperatively. Will continue with senna 2 tablets twice daily until first bowel movement. Patient was advised if not having a bowel movement after day 3 she is to contact orthopedics so appropriate change can be made. Patient voiced understanding. 9. Continue postoperative medical treatment per medicine 10. Disposition: Plan will be for discharge home today as long as patient remains medically stable, tolerates therapy, and pain is adequately controlled. He has outpatient physical therapy established. He will follow-up per postoperative instructions. Patient would like his medications E scribed to [facility]. Upon discharge he will contact our office with any concerns or questions. I have reviewed the [place] Automated Rx Reporting System (OARRS) report for this patient for refill pattern and other prescriber involvement as part of the appropriate surveillance for the provision of acute and chronic controlled medications. The report was requested and reviewed on the date of this entry and was considered in the prescribing process. This dictation was created using voice recognition software. Phonetic and/or grammatical errors may exist.
--- NOTE | 2024-07-04 07:05 | DCINST_ITS ---
Discharge Instructions Diet Discharge Diet: No restrictions DC O2, CPAP, BIPAP needs Home O2 Discharge instructions: No Dressing / Incision Discharge Activity: May Not Drive (Okay to drive when you are able to walk 100 feet with use of cane and no longer using narcotic medications) May shower in (days): 1 (only if incision is dry and without drainage. Do NOT soak/submerge in tub/pool/quijano/stream/hot tub.)) Ice area for (Minutes): 20 (Every 1-2 hours while [address] barrier between ice and skin.) Weight Bearing Status: Weight bearing as tolerated (With walker) Keep extremity elevated above heart level: Operative Extremity Dressing / Incision Call your doctor if your incision/area has: Continuous Slow Oozing, Sudden Increased Bleeding, Increased Pain/ Swelling, Increased Redness and Foul Smelling Discharge Call your doctor if you observe: Fever of 101 or Higher, Shortness of breath, Chest pain, Calf discomfort and Uncontrolled pain Remove Dressing in: 4 days (Okay to remove dressing on July 08, 2024) Additional Dressing/Incision Instructions:: Follow [facility] Post-op Instructions. Once postoperative dressing has been removed, only use gentle soap and water over the incision. Do not use any ointments, Neosporin, salves, alcohol pads over the incision for 6 weeks postoperatively. Do not submerge underwater for 6 weeks postoperatively. Continue with PRASHANTH hose/elastic stockings for 2 weeks postoperatively. May remove at nighttime but needs to be placed back on the leg during the day. DVT prophylaxis plan: You will use aspirin 81 mg twice daily with food for 4 weeks postoperatively for DVT prevention. After 4 weeks you will then go back to your normal 81 mg aspirin daily as prescribed. Do NOT use alcohol with narcotic pain medication. Do NOT make important decisions while taking narcotic medication. If you have problems with taking your medication (rash, itching, nausea, etc.) call the office at once. Follow Up Care Test Results: Test results from this visit will be discussed in further detail at your follow- up appointment, if applicable. Discharge Plan Admission Admit Date/Time: 07/03/24 10:28 Attending Provider: Patrick Morris Primary Care Provider: Domingo Greer Consulting Providers: Aguila Ramachandran Discharge Orders/Prescriptions Prescriptions: New acetaminophen 500 mg Tablet 1,000 mg PO TID 14 Days Qty: 84 0RF Rx Instructions: Do not take more than 3000 mg Tylenol in a 24-hour period. aspirin 81 mg capsule 81 mg PO BIDCM 30 Days Qty: 0 0RF Rx Instructions: Take 81 mg aspirin twice daily for 4 weeks postoperatively for DVT prophylaxis. After 4 weeks we will then go back to 81 mg aspirin daily as prescribed. famotidine 20 mg Tablet 20 mg PO DAILY 30 Days Qty: 30 0RF oxycodone 5 mg Tablet 5 - 10 mg PO Q4H PRN PRN (Reason: as needed for pain) 7 Days Qty: 15 0RF sennosides-docusate sodium [Stimulant Laxative Plus] 8.6-50 mg Tablet 2 tab PO BID 3 Days Qty: 12 0RF Rx Instructions: Take until first bowel movement, then as needed Continued liraglutide 0.6 mg/0.1 mL (18 mg/3 mL) pen injector 1.8 mg SC DAILY 30 Days Qty: 9 Patient Comments: inject 1.8mg SUBCUTANEOUSLY EVERY DAY atenolol 50 mg tablet 50 mg PO QDAY coenzyme Q10 100 mg capsule 100 mg PO QDAY rosuvastatin 40 mg tablet 40 mg PO DAILY clopidogrel 75 mg tablet 75 mg PO QDAY dapagliflozin propanediol [Farxiga] 10 mg tablet 10 mg PO DAILY glimepiride 2 mg tablet 2 mg PO DAILY nifedipine 60 mg tablet extended release 24hr 60 mg PO DAILY ascorbic acid (vitamin C) [C-500] 500 mg tablet 1 g PO DAILY cholecalciferol (vitamin D3) [Vitamin D3] 50 mcg (2,000 unit) capsule 50 mcg PO DAILY Quercetin Complex 500-225-33 mg capsule 1 cap PO DAILY GREEN LIPID MUSCLE 750 mg PO DAILY krill oil 500 mg capsule 500 mg PO DAILY Discontinued aspirin [Adult Low Dose Aspirin] 81 mg tablet,delayed release (DR/EC) 81 mg PO DAILY Other Ambulatory Orders: 12 Lead EKG (Routine) Location: None Selected Ordered By: Dr. Patrick Morris Referrals / Follow Up: Physical,Therapy [Other] - 07/06/24 10:30 am Domingo Greer MD [Primary Care Provider] - Patrick Morris MD [Med Staff - Active Staff] - 07/19/24 2:45 pm Disposition Disposition (needs filled in before D/C Order can be placed): Home, Self Care
[2024-07-04 07:10] VITALS: BP 160/64; PULSE 58; RESP 18; TEMP 36.8; O2SAT 96
[2024-07-04 07:10] LABS: Bedside Glucose 145 mg/dL (74-106)
[2024-07-04 07:22] LABS: Hematocrit 32.8 % (40-54); Hemoglobin 10.8 g/dL (13.0-16.5); Mean Corp Hgb Conc 32.9 g/dL (32-36); Mean Corpuscular Hgb 28.3 pg (27.0-32.0); Mean Corpuscular Volume 85.9 fL (80-94); Mean Platelet Vol. 10.9 fl (6.2-12.0); Platelet Count 128 K/mm3 (150-450); RBC Distribution Width CV 13.9 % (11.6-14.6); Red Blood Count 3.82 M/mm3 (4.6-6.2); White Blood Count 11.2 K/mm3 (4.4-11.0)
[2024-07-04 07:53] LABS: Anion Gap 8 (5-15); BUN 46 mg/dL (7-18); BUN/Creat Ratio 23.7 RATIO (10-20); Calcium,Total 8.5 mg/dL (8.5-10.1); Chloride 111 mmol/L (98-107); Creatinine, Serum 1.94 mg/dL (0.70-1.30); EST Glomerular Filtration Rate 35 mL/min (>60); Est Glom Filt Rate - Afr Amer 43 mL/min (>60); Estimated Creatinine Clearance 35.65 ml/min; Glucose 140 mg/dL (74-106); Potassium 4.5 mmol/L (3.5-5.1); Sodium Level 137 mmol/L (136-145)
[2024-07-04] MEDS: Ensure Surgery 237 ML LIQUID PO (08:05)
[2024-07-04] MEDS: oxyCODONE 5 MG Tablet PO (08:07)
[2024-07-04] MEDS: Famotidine 20 MG Tablet PO (08:08)
[2024-07-04] MEDS: Ascorbic Acid 500 MG Tablet 1000 MG PO (08:08)
[2024-07-04] MEDS: Clopidogrel Bisulfate 75 MG Tablet PO (08:08)
[2024-07-04] MEDS: Cholecalciferol (VIT D3) 25 MCG TABLET (1,000 UNITS) 50 MCG PO (08:08)
[2024-07-04] MEDS: Glimepiride 2 MG Tablet PO (08:09)
[2024-07-04] MEDS: NIFEdipine 60 MG Tablet PO (08:09)
[2024-07-04] MEDS: Atenolol 50 MG Tablet PO (08:09)
[2024-07-04] MEDS: Empagliflozin 25 MG Tablet PO (08:10)
[2024-07-04 08:33] VITALS: BMI 32.1
--- NOTE | 2024-07-04 10:07 | CASEMGMT ---
PAULINO BALDWIN Assessment: Face to Face with pt for initial transition planning/care coordination assessment. PAULINO BALDWIN introduced self and role at [facility], pt voices understanding and consents to assessment. Pt is A&O x4 and answers all questions appropriately at this time. Pt sitting up in chair with present in no distress. Care providers, pharmacy, and demographics verified/updated. Admitting Dx: anterior left total hip arthroplasty Strata Score: 2 PCP:Zoey Specialists:Arturo, ortho; Tan, nephro; Lili, cardio Preferred Pharmacy: [facility], pt requests meds be delivered to the room, notified Carrie at [facility]. Insurance: [employer] Prescription Benefit: yes LNOK: Ursula Willard, Living Arrangements: Pt lives with in a split level home with 2 steps to enter. Pt states he was typically indep prior to surgery. Pt adult granddtr will assist pt this week with pt needs. Pt denies concerns at home. Transportation: Pt drives self and denies concerns with transportation. Pt will transport pt until he is able to drive again. DME:walker, cane HHC/SNF: Denies hx of Pt states no concerns with going home at time of dc. Pt asks about wheels for walker that is in the room. TC to Pa at [facility] who states that he cannot provide wheels for the walker but they can be purchased on [employer] and they are 5 inch universal wheels. Made pt and aware of this. Pt wants a FWW to be obtained but pt wants to get wheels or buy one from a thrift store. Pt does not want to pay 20% if the insurance does not pay for it. He is aware of approximate typical cost of FWW. Pt aware that should he change his mind, he can notify PAULINO BALDWIN. BENZENE WASHER aware of this choice as well. Pt has outpt therapy set up on at [facility]. Pt states no further concerns/needs. CM to follow. Advised pt to ask CM if any further questions/concerns/needs arise, voices understanding. Pt Goal: Home with outpt therapy Plan: Home with outpt therapy Kim BOB CM
[2024-07-04 12:52] LABS: Bedside Glucose 137 mg/dL (74-106)
[2024-07-04 13:47] VITALS: BP 152/74; PULSE 58; RESP 18; TEMP 36.8; O2SAT 98
--- NOTE | 2024-07-04 14:32 | PHA.DC.MC.R ---
Pharmacy [facility] has performed discharge medication reconciliation and counseling for this patient. 1. ACETAMINOPHEN 1000MG PO Q8 2. ASPIRIN 81MG PO BID X 4 WEEKS THEN RESUME ONCE DAILY 3. FAMOTIDINE 20MG PO DAILY 4. OXYCODONE 5-10MG PO Q4H PRN PAIN 5. SENNA/DOCUSATE 2T PO BID UNTIL FIRST BM, THEN PRN CONSTIPATION The patient's discharge medication list was reviewed for discrepancies and discrepancies were resolved. The patient was counseled on the following discharge medications and changes in medications for homegoing were reviewed. The Reason for Use, instructions for use, and potential side effects were reviewed for all new medications. The patient's questions regarding all of their medications were answered. The patient was able to verbally demonstrate an understanding of their discharge medications. Medications at Discharge Home Medications atenolol 50 mg tablet 50 mg PO QDAY 09/21/17 clopidogrel 75 mg tablet 75 mg PO QDAY 09/21/17 coenzyme Q10 100 mg capsule 100 mg PO QDAY 09/21/17 rosuvastatin 40 mg tablet 40 mg PO DAILY 09/21/17 liraglutide 0.6 mg/0.1 mL (18 mg/3 mL) subcutaneous pen injector 1.8 mg subcut DAILY 30 days #9 mL 07/13/23 dapagliflozin propanediol 10 mg tablet (Farxiga) 10 mg PO DAILY 01/10/24 GREEN LIPID MUSCLE 750 mg PO DAILY 06/06/24 ascorbic acid (vitamin C) 500 mg tablet (C-500) 1 g PO DAILY 06/06/24 cholecalciferol (vitamin D3) 50 mcg (2,000 unit) capsule (Vitamin D3) 50 mcg PO DAILY 06/06/24 glimepiride 2 mg tablet 2 mg PO DAILY 06/06/24 krill oil 500 mg capsule 500 mg PO DAILY 06/06/24 nifedipine 60 mg tablet,extended release 24 hr 60 mg PO DAILY 06/06/24 vitamin C 500 mg-quercetin 225 mg-bioflavonoids, citrus 33 mg capsule (Quercetin Complex) 1 cap PO DAILY 06/06/24 acetaminophen 500 mg tablet 1,000 mg (2 x 500 mg) PO TID 14 days #84 tabs 07/04/24 aspirin 81 mg capsule 81 mg PO BIDCM 30 days #0 caps 07/04/24 famotidine 20 mg tablet 20 mg PO DAILY 30 days #30 tabs 07/04/24 oxycodone 5 mg tablet 5 - 10 mg (1 - 2 x 5 mg) PO Q4H PRN PRN as needed for pain 7 days #15 tabs 07/04/24 sennosides 8.6 mg-docusate sodium 50 mg tablet (Stimulant Laxative Plus) 2 tab PO BID 3 days #12 tabs 07/04/24
--- NOTE | 2024-07-04 16:11 | PCM.PN.HOSP ---
Reason for Visit Reason for Visit: Diagnoses Pain in unspecified hip (07/03/24) Encounter for other preprocedural examination (07/03/24) Presence of left artificial hip joint (07/03/24) Objective Data Objective Data Vital Signs: Vital Signs Temp Pulse Resp BP Pulse Ox O2 Del Method O2 Flow Rate 98.3 F 58 L 18 152/74 H 98 Room Air 4 07/04/24 13:47 07/04/24 13:47 07/04/24 13:47 07/04/24 13:47 07/04/24 13:47 07/04/24 13:47 07/03/24 14:42 Oxygen Flow Rate (L/min) 4 Oxygen Delivery Method Room Air Weight: 223 lb 12.307 oz Body Mass Index (BMI) 32.1 Intake & Output: Intake and Output for Last 24 Hours 07/02/24 07/03/24 07/04/24 23:59 23:59 23:59 Intake Total 3647 / 3647 950 / 950 Output Total 250 / 250 Balance 3397 / 3397 950 / 950 Lab / Micro Data 07/04/24 06:58 07/04/24 06:58 Labs: Laboratory Results - last 24 hr 07/03/24 16:59: POC Glucose 239 H 07/04/24 00:27: POC Glucose 291 H 07/04/24 06:39: POC Glucose 145 H 07/04/24 06:58: WBC 11.2 H, RBC 3.82 L, Hgb 10.8 L, Hct 32.8 L, MCV 85.9, MCH 28.3, MCHC 32.9, RDW Std Deviation 43.0, RDW Coeff of Bruno 13.9, Plt Count 128 L, MPV 10.9, Sodium 137, Potassium 4.5, Chloride 111 H, Carbon Dioxide 18.0 L, Anion Gap 8, BUN 46 H, Creatinine 1.94 H, Estim Creat Clear Calc 35.65, Est GFR (MDRD) Af Amer 43 L, Est GFR (MDRD) Non-Af 35 L, BUN/Creatinine Ratio 23.7 H, Glucose 140 H, Calcium 8.5 07/04/24 12:18: POC Glucose 137 H Micro: Microbiology 06/07/24 09:15 Swab (Method) Nasal Screen MRSA/MSSA - Final Physical Exam Narrative Seen and examined. Discussed about the CKD stage IV. Patient creatinine is about 1.8-2.0. He follows Dr. Mindi Maddox. No acute cardiopulmonary issues. Patient voiding urine and passing flatus. Plan for discharge today Physical exam General: Alert, Oriented x3, Cooperative HEENT: Atraumatic, PERRLA, EOMI, Normocephalic Oral: Oral mucosa moist no Gingival or Mucosal Lesions/ Ulcerations Neck: Supple, No JVD, Negative Carotid Bruits Chest wall/Lungs: Air entry diminished in bilateral lung bases. No crepitation/rhonchi Cardiovascular: Regular rate, Regular Rhythm, Normal S1, Normal S2, ejection systolic murmur grade 4/6 with radiation to carotid Abdomen: Bowel Sounds Present, Soft, Non Tender, Non-Distended : No dysuria. No renal angle tenderness. No suprapubic tenderness. Extremities: No edema, Capillary Refill Less than 3 Seconds Skin: Left hip surgical dressing is dry. No palpable hematoma or bruise Musculoskeletal: Mild perioperative tenderness. No acute tenderness to other palpation of Joints or Extremities Neurological: Cranial nerves II-XII grossly intact, DTR 2+/4. No acute focal neurological deficit. Psych/Mental Status: Normal Affect, Appropriate. Assessment & Plan Assessment/Plan (1) Hip pain: PLAN: Plan This 83-year-old gentleman is being admitted for elective left hip surgery for left hip primary osteoarthritis 1. Perioperative management for left hip endovasculitis: Patient had left left minimally invasive direct anterior hip replacement on 07/03/2024. Voiding urine spontaneously. Passing flatus. Minimal pain over the operative site. No hematoma or bruise. Continue with incentive spirometry. PT OT and DVT prophylaxis as per attending physician 2/4: Patient is doing well with PT and OT. Plan for discharge today. Advised Eliquis 2.5 twice daily for 1 month. He had more than 2 g% drop in hemoglobin from 13.7 to 10.8%. His baseline hemoglobin fluctuates around 12 to 13 g%. Mild acute blood loss anemia. 2. CAD status post stents: Continue home medication. Last echo in May 2019 shows EF 65%. Had bypass surgery in 2001. Continue baby aspirin, Plavix, atenolol, nifedipine. Follows [facility] 2/4 continue home medications and follow-up with [facility]. 3. Mild aortic stenosis: Last echo shows mean AV gradient 12 mmHg, calculated ARIADNE area 1.9 cm?. 4. Chronic abdominal aortic aneurysm: Patient had aortobiiliac stent graft in February 2011. No acute complaint. 5. Diabetes mellitus type 2: Accu-Chek before meals and at bedtime with Humalog sliding scale coverage and hypoglycemia protocol. 6. CKD stage IV: Patient creatinine varies from 1.70-2.36 depending upon the patient's fluid hemodynamics. He follows Dr. Maddox. Advised to continue follow-up. Yesterday it was 1.7 today 1.94. No dysuria or acute lower urinary tract symptoms/issues. Other comorbidities include hypertension and dyslipidemia: Continue home med Charges/Coding Visit Charges Inpatient E&M: 53216 Subs Hosp L2
== END 2024-07-04 13:46 | disposition home or self-care (01) ==
LOC: SDC 12:36 → MS3 12:36
PROVIDERS: Anesthesiology; Admitting Provider Specialist; PCP Family Medicine; Referring Provider Specialist; Visit Provider Specialist
PROC: (CPT 27284; principal; 2024-07-03 08:20)
DX: M16.12 Unilateral primary osteoarthritis, left hip (principal); N18.4 Chronic kidney disease, stage 4 (severe); E11.22 Type 2 diabetes mellitus with diabetic chronic kidney disease; Z79.85 Long-term (current) use of injectable non-insulin antidiabetic drugs; Z87.891 Personal history of nicotine dependence; E78.00 Pure hypercholesterolemia, unspecified; Z79.02 Long term (current) use of antithrombotics/antiplatelets; I25.10 Atherosclerotic heart disease of native coronary artery without angina pectoris; Z79.82 Long term (current) use of aspirin; I12.9 Hypertensive chronic kidney disease with stage 1 through stage 4 chronic kidney disease, or unspecified chronic kidney disease; G47.30 Sleep apnea, unspecified; Z79.84 Long term (current) use of oral hypoglycemic drugs; Z79.899 Other long term (current) drug therapy
CPT/HCPCS: 27130; 01214; 36415; 73501; 73502; 76000; 80048; 82040; 82962; 83036; 83735; 85025; 85027; 87081; 88305; 88311; 93005; 94668; 94762; 96365; 96366; 97162; 97166; 97530; 97535; 99221; 99252; C1776; A4216; G0378; G0463; J2405; J3475

== ENCOUNTER → 2024-12-05 | Outpatient (CLI) | payer MEDICARE, SELFPAY ==
[2024-12-05 13:08] LABS: Albumin, Serum 4.4 g/dL (3.4-4.8); Anion Gap 13 (5-15); BUN 41 mg/dL (4-19); BUN/Creat Ratio 22.1 RATIO (10-20); Calcium,Total 9.2 mg/dL (7.6-11.0); Carbon Dioxide 16.6 mmol/L (21.0-32.0); Chloride 114 mmol/L (98-108); Glucose 124 mg/dL (70-99); Potassium 4.4 mmol/L (3.3-5.1)
== END | disposition home or self-care (01) ==
LOC: MFPLAB 10:05
PROVIDERS: PCP Family Medicine; Visit Provider Internal Medicine Nephrology
DX: N18.32 Chronic kidney disease, stage 3b (principal)
CPT/HCPCS: 36415; 80069

== ENCOUNTER 2025-01-01 06:57 | Observation (INO) | payer MEDICARE, SELFPAY ==
--- NOTE | 2024-12-11 09:50 | EKG12_ITS ---
Test Reason : PRE OP Blood Pressure : */* mmHG Vent. Rate : 83 BPM Atrial Rate : 52 BPM P-R Int : 214 ms QRS Dur : 92 ms QT Int : 372 ms P-R-T Axes : 23 -32 17 degrees QTcB Int : 437 ms Sinus bradycardia with 1st degree A-V block with frequent Premature ventricular complexes Left axis deviation Abnormal ECG When compared with ECG of 07-Jun-2024 09:06, No significant change was found Confirmed by MD JENNIFER, NATI ([id number]), industrial editor MARTI HUA ([id number]) on 12/12/2024 11:01:58 AM Referred By: Patrick Morris Confirmed By: NATI RODRIGUEZ MD
[2024-12-11 10:25] LABS: Hematocrit 39.9 % (40-54); Hemoglobin 13.4 g/dL (13.0-16.5); Mean Corp Hgb Conc 33.6 g/dL (32-36); Mean Corpuscular Volume 85.8 fL (80-94); Mean Platelet Vol. 10.8 fl (6.2-12.0); Platelet Count 154 K/mm3 (150-450); RBC Distribution Width CV 15.0 % (11.6-14.6); RBC Distribution Width SD 47.2 fl (35.1-43.9); Red Blood Count 4.65 M/mm3 (4.6-6.2); White Blood Count 7.6 K/mm3 (4.4-11.0)
[2024-12-11 10:26] LABS: Immature Granulocytes Count 0.020 X10^3/uL (0.0-0.0)
[2024-12-11 10:52] LABS: Magnesium 2.4 mg/dL (1.5-2.2)
[2024-12-11 10:55] LABS: Albumin, Serum 4.5 g/dL (3.4-4.8); Anion Gap 14 (5-15); BUN 39 mg/dL (4-19); BUN/Creat Ratio 21.6 RATIO (10-20); Calcium,Total 9.4 mg/dL (7.6-11.0); Carbon Dioxide 18.0 mmol/L (21.0-32.0); Chloride 112 mmol/L (98-108); Glucose 88 mg/dL (70-99); Potassium 4.4 mmol/L (3.3-5.1)
--- NOTE | 2024-12-11 17:08 | PAT.ANE_ITS ---
Pre-Assessment Diagnosis/Proposed Procedure Planned Operative Procedure(s): (R) Total Hip Anterior Approach Anesthesia History Anesthesia History - product introduction manager: Anesthesia History - product introduction manager Hx Hospitalization Yes: 2-25 L THR 12/11/24 15:54 Any Problems With Anesthesia No 12/11/24 15:54 Cholinesterase deficiency No 12/11/24 15:54 You/Your Family Experience No 12/11/24 15:54 fever (hyperthermia) with Relationship Recent Exposure to Contagious No 07/03/24 06:57 Disease Does patient have nerve No 12/11/24 15:54 stimulator Patient instructed to have device shut off --Does patient have Pacemaker or ICD? When Was Last Pacemaker Check QUESTION #4 FULL TEXT: You/Your Family Experience fever (hyperthermia) with Anesthesia Last Oral Intake Last Oral intake: Last Oral Intake NPO since Meds taken in AM with sips of water? Meds patient instructed to take am of surgery PONV PONV - product introduction manager: PONV - product introduction manager Female No 12/11/24 15:54 HX of Motion Sickness No 12/11/24 15:54 HX of N/V After Surgery Yes 12/11/24 15:54 Non-Smoker Yes 12/11/24 15:54 Duration of Surgery greater Yes 12/11/24 15:54 than 60 minutes Number of Risk Factors 3 12/11/24 15:54 PONV Score Moderate Risk 12/11/24 15:54 Height & Weight Height & Weight: Anesthesia: Height & Weight Height 5 ft 10 in 09/05/24 09:24 Respiratory Assessment Respiratory Assessment - product introduction manager: Respiratory Tract Infection Hx - product introduction manager Hx Respiratory Tract Infection No 12/11/24 15:54 STOP Sleep Apnea STOP Sleep Apnea - product introduction manager: STOP Sleep Apnea - product introduction manager Hx Hypertension Yes 12/11/24 15:54 Hx Sleep Apnea No 12/11/24 15:54 CPAP BIPAP Do you snore loudly (louder Yes 12/11/24 15:54 than talking or can be heard Do you often feel tired/ No 12/11/24 15:54 fatigued/ sleepy during daytime? Has anyone observed you stop Yes 12/11/24 15:54 breathing during sleep? STOP Results Positive 12/11/24 15:54 QUESTION #5 FULL TEXT : Do you snore loudly (louder than talking or can be heard through closed doors)? Tobacco Use History Tobacco Use History - product introduction manager: Tobacco Use History - product introduction manager Tobacco Use Non-smoker 02/25/21 13:30 Smoking Status Former smoker 12/11/24 15:54 Hx Tobacco Use No 12/11/24 15:54 Years Smoking Packs Smoked per Day Smoking Cessation Date was No - quit smoking greater 12/11/24 15:54 within the last 15 years than 15 years ago Hx Smoking Cessation Date Hx Smoking Cessation No 12/11/24 15:54 Counseling Hematologic Medial History Hematologic Hx - product introduction manager: Hematologic Medical Hx - professor of food biochemistry Hx of Blood Transfusion No 12/11/24 15:54 Hx of Transfusion in last 3 No 12/11/24 15:54 Months Date of Last Transfusion (if within last 3 months) Ever experience any problems No 12/11/24 15:54 with transfusion(s)? Specify any problems Hx of Preganancy in last 3 N/A 12/11/24 15:54 Months Nurse Filling Out Transfusion JZOLLINGE 12/11/24 15:54 & Questions: Date: 12/11/24 12/11/24 15:54 Time: 15:56 12/11/24 15:54 Patient unable to answer at this time (ie. confused, unrespo /Reproduction History /Reproductive History - product introduction manager: /Reproductive Hx- product introduction manager Hx Now No 12/11/24 15:54 Gestational Age (in weeks): EDC: Hx Hx Para Hx Section SAB No 12/11/24 15:54 PFSH Medical History (Updated 12/11/24 @ 15:54 by Megan Gabriel) Sleep apnea Wears glasses Arthritis History of renal disease High cholesterol Restless legs Back pain Dietary restriction Heartburn Former smoker Shortness of breath on exertion History of pain when walking History of edema History of stress test History of echocardiogram Cardiology follow-up encounter COVID-19 (~2021) Chronic kidney disease (CKD) Obesity Nonrheumatic aortic (valve) stenosis Essential (primary) hypertension Abdominal aortic aneurysm (AAA) Atherosclerotic heart disease of [place] coronary artery without angina pectoris Diabetes mellitus HLD (hyperlipidemia) Home Medications ?Medication ?Instructions ?Recorded ?Last Taken ?Type atenolol 50 mg tablet 50 mg PO QDAY 09/21/1707/02 History coenzyme Q10 100 mg capsule 100 mg PO QDAY 09/21/17 History rosuvastatin 40 mg tablet 40 mg PO DAILY 09/21/1707/25 History dapagliflozin propanediol 10 mg 10 mg PO DAILY 4 06/30/24 History tablet (Farxiga) GREEN LIPID MUSCLE 750 mg PO DAILY PRN NEEDE D 06/06/24 07/02/24 History ascorbic acid (vitamin C) 500 mg 1 g PO DAILY 06/06/24 07/02/24 History tablet (C-500) cholecalciferol (vitamin D3) 50 50 mcg PO DAILY 07/02/24 History mcg (2,000 unit) capsule (Vitamin D3) glimepiride 2 mg tablet 2 mg PO DAILY 06/06/2407/02 History nifedipine 60 mg tablet,extended 60 mg PO DAILY 07/02/24 History release 24 hr vitamin C 500 mg-quercetin 225 1 cap PO DAILY 06/06/24 07/02/24 History mg-bioflavonoids, citrus 33 mg capsule (Quercetin Complex) acetaminophen 500 mg tablet 1,000 mg PO TID PRN fever or pain 12/11/24 Unknown History aspirin 81 mg capsule 81 mg PO .QD 12/11/24 Unknow n History berberine chloride 500 mg capsule 500 mg PO .QD Unknown History Allergy/AdvReac Type Severity Reaction Status Date / Time No Known Allergies Allergy Verified 12/11/24 15:34 Family History Mother Cancer Surgical History History of left hip replacement (~07/2024) Hx of left cataract extraction Hx of right cataract extraction Hx of hernia repair History of appendectomy History of coronary artery stent placement (11/19/04) H/O endovascular stent graft for abdominal aortic aneurysm (02/2011) Social History Smoking Status: Former smoker how long ago did patient quit smoking: Age 42 alcohol intake: current alcohol intake frequency: holidays/special occasions only substance use type: does not use caffeine: Yes Type: carbonated beverages and coffee Number of servings: 1 what type of physical activity do you participate in: none seatbelt use: always do you feel safe at home: Yes Audit: Pertinent Findings HISTORY of Pertinent Findings History of Pertinent Findings: Ryder Pearson Note (09/05/24): CAD status post stent -no medication changes. He is considering hip surgery. If he proceeds, he should have an echocardiogram and stress test prior to ensure cardiac clearance. nonrheumatic aortic valve stenosis -His most recent echocardiogram in 2019 showed an ejection fraction 65%, mild aortic valve stenosis with a peak aortic valve gradient of 22 mmHg and a mean aortic valve gradient of 12 mmHg. Aortic valve area was calculated at 1.9/1.8 cm?. This appears stable. He will continue current medical therapy and we will continue to monitor. We will consider repeat echocardiogram as needed/indicated. Aortic abdominal aneurysm?appears stable, continue atenolol Pertinent Findings EKG Perinent findings: EKG 07/03/2024: Sinus rhythm with first-degree AV block with frequent PVCs with left axis deviation. Ventricular rate of 93 Stress test pertinent findings: Stress test from 02/22/2024: Conclusion: Normal pharmacologic myocardial perfusion stress test. Preserved ejection fraction. Echo (EF%) pertinent findings: Echocardiogram done on 02/18/2024: Normal LV size with an estimated LVEF of 60% which is normal. Mild focal aortic valve calcification. Echocardiogram from 06/19/2019: Interpretation Summary Normal LV size. Left ventricular systolic function is normal. The estimated ejection fraction is 65 %. Mild aortic stenosis. Contrast injection was performed. Recommendation Anesthesia Recommendation Anesthesia recommendation: F/U recommended Follow up Details Cardiac/Pulmonary Imaging Recommendation: Yes Cadiac/Pulmonary Imaging Rec De tails: Per eyeglass assembler recommendation patient should have an echocardiogram and a stress test done prior to a hip replacement surgery.
--- NOTE | 2024-12-20 19:52 | PAT.ANESEVAL ---
Pre-Assessment Diagnosis/Proposed Procedure Planned Operative Procedure(s): (R) Total Hip Anterior Approach Anesthesia History Anesthesia History - compliance monitor: Anesthesia History - compliance monitor Hx Hospitalization Yes: 2-25 L THR 12/11/24 15:54 Any Problems With Anesthesia No 12/11/24 15:54 Cholinesterase deficiency No 12/11/24 15:54 You/Your Family Experience No 12/11/24 15:54 fever (hyperthermia) with Relationship Recent Exposure to Contagious No 07/03/24 06:57 Disease Does patient have nerve No 12/11/24 15:54 stimulator Patient instructed to have device shut off --Does patient have Pacemaker or ICD? When Was Last Pacemaker Check QUESTION #4 FULL TEXT: You/Your Family Experience fever (hyperthermia) with Anesthesia Last Oral Intake Last Oral intake: Last Oral Intake NPO since Meds taken in AM with sips of water? Meds patient instructed to take am of surgery PONV PONV - compliance monitor: PONV - compliance monitor Female No 12/11/24 15:54 HX of Motion Sickness No 12/11/24 15:54 HX of N/V After Surgery Yes 12/11/24 15:54 Non-Smoker Yes 12/11/24 15:54 Duration of Surgery greater Yes 12/11/24 15:54 than 60 minutes Number of Risk Factors 3 12/11/24 15:54 PONV Score Moderate Risk 12/11/24 15:54 Height & Weight Height & Weight: Anesthesia: Height & Weight Height 5 ft 10 in 09/05/24 09:24 Respiratory Assessment Respiratory Assessment - compliance monitor: Respiratory Tract Infection Hx - compliance monitor Hx Respiratory Tract Infection No 12/11/24 15:54 STOP Sleep Apnea STOP Sleep Apnea - compliance monitor: STOP Sleep Apnea - compliance monitor Hx Hypertension Yes 12/11/24 15:54 Hx Sleep Apnea No 12/11/24 15:54 CPAP BIPAP Do you snore loudly (louder Yes 12/11/24 15:54 than talking or can be heard Do you often feel tired/ No 12/11/24 15:54 fatigued/ sleepy during daytime? Has anyone observed you stop Yes 12/11/24 15:54 breathing during sleep? STOP Results Positive 12/11/24 15:54 QUESTION #5 FULL TEXT : Do you snore loudly (louder than talking or can be heard through closed doors)? 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 Specify any problems Hx of Preganancy in last 3 N/A 12/11/24 15:54 Months Nurse Filling Out Transfusion JZOLLINGE 12/11/24 15:54 & Questions: Date: 12/11/24 12/11/24 15:54 Time: 15:56 12/11/24 15:54 Patient unable to answer at this time (ie. confused, unrespo /Reproduction History /Reproductive History - compliance monitor: /Reproductive Hx- compliance monitor Hx Now No 12/11/24 15:54 Gestational Age (in weeks): EDC: Hx Hx Para Hx Section SAB No 12/11/24 15:54 PFSH Medical History (Updated 12/11/24 @ 15:54 by Megan Gabriel) Sleep apnea Wears glasses Arthritis History of renal disease High cholesterol Restless legs Back pain Dietary restriction Heartburn Former smoker Shortness of breath on exertion History of pain when walking History of edema History of stress test History of echocardiogram Cardiology follow-up encounter COVID-19 (~2021) Chronic kidney disease (CKD) Obesity Nonrheumatic aortic (valve) stenosis Essential (primary) hypertension Abdominal aortic aneurysm (AAA) Atherosclerotic heart disease of [place] coronary artery without angina pectoris Diabetes mellitus HLD (hyperlipidemia) Home Medications ?Medication ?Instructions ?Recorded ?Last Taken ?Type atenolol 50 mg tablet 50 mg PO QDAY 09/21/17 07/02/24 History coenzyme Q10 100 mg capsule 100 mg PO QDAY 09/21/17 07/02/24 History rosuvastatin 40 mg tablet 40 mg PO DAILY 09/21/17 07/02/24 History dapagliflozin propanediol 10 mg 10 mg PO DAILY 01/10/24 06/30/24 History tablet (Farxiga) GREEN LIPID MUSCLE 750 mg PO DAILY PRN NEEDED 06/06/24 07/02/24 History ascorbic acid (vitamin C) 500 mg 1 g PO DAILY 06/06/24 07/02/24 History tablet (C-500) cholecalciferol (vitamin D3) 50 50 mcg PO DAILY 06/06/24 07/02/24 History mcg (2,000 unit) capsule (Vitamin D3) glimepiride 2 mg tablet 2 mg PO DAILY 06/06/24 07/02/24 History nifedipine 60 mg tablet,extended 60 mg PO DAILY 06/06/24 07/02/24 History release 24 hr vitamin C 500 mg-quercetin 225 1 cap PO DAILY 06/06/24 07/02/24 History mg-bioflavonoids, citrus 33 mg capsule (Quercetin Complex) acetaminophen 500 mg tablet 1,000 mg PO TID PRN fever or pain 12/11/24 Unknown History aspirin 81 mg capsule 81 mg PO .QD 12/11/24 Unknown History berberine chloride 500 mg capsule 500 mg PO .QD 12/11/24 Unknown History Allergy/AdvReac Type Severity Reaction Status Date / Time No Known Allergies Allergy Verified 12/11/24 15:34 Family History Mother Cancer Surgical History History of left hip replacement (~07/2024) Hx of left cataract extraction Hx of right cataract extraction Hx of hernia repair History of appendectomy History of coronary artery stent placement (11/19/04) H/O endovascular stent graft for abdominal aortic aneurysm (02/2011) Social History Smoking Status: Former smoker how long ago did patient quit smoking: Age 42 alcohol intake: current alcohol intake frequency: holidays/special occasions only substance use type: does not use caffeine: Yes Type: carbonated beverages and coffee Number of servings: 1 what type of physical activity do you participate in: none seatbelt use: always do you feel safe at home: Yes Audit: Pertinent Findings HISTORY of Pertinent Findings History of Pertinent Findings: EKG Pertinent Findings EKG Perinent findings EKG 07/03/2024: 12/11/24 17:15 Sinus rhythm with first- degree AV block with frequent PVCs with left axis deviation. Ventricular rate of 93 Stress Test Pertinent Findings Stress test pertinent findings Stress test from 02/22/2024: 12/11/24 17:15 Conclusion: Normal pharmacologic myocardial perfusion stress test. Preserved ejection fraction. Echo Pertinent Findings Echo (EF%) pertinent findings Echocardiogram done on 12/11/24 17:15 2023: Normal LV size with an estimated LVEF of 60% which is normal. Mild focal aortic valve calcification. Echocardiogram from 2019: Interpretation Summary Normal LV size. Left ventricular systolic function is normal. The estimated ejection fraction is 65 %. Mild aortic stenosis. Contrast injection was performed. Pertinent Findings EKG Perinent findings: December 11, 2024. Sinus bradycardia with first-degree AV block with frequent PVCs. Left axis deviation. Consult pertinent findings: December 14, 2024. Dr. Pearson. Patient has clearance for surgery. Hold Farxiga for 3 to 4 days. If necessary hold aspirin for 7 days prior and resume post-procedure. Recommendation Anesthesia Recommendation Anesthesia recommendation: OPTIMIZED for anesthesia
--- NOTE | 2024-12-27 12:13 | PCM.HP.BLA ---
History and Physical History and Physical? Patient Name: Delmer Willard : 1940From:? DIETER HUNTER PA-C? DATE OF PRE-OPERATIVE EXAM: 12/27/2024 DATE OF SURGERY:? 01/01/2025 SCHEDULED PROCEDURE:? ?Direct anterior right total hip arthroplasty HISTORY OF PRESENT ILLNESS: Preoperative history and physical exam was performed on December 27, 2024.? This is a 84-year-old male who has been having ongoing pain in his right hip.? Patient recently underwent a left direct anterior total hip arthroplasty by Dr. Patrick Morris on July 03, 2024.? He is doing well with that procedure.? Patient states his right hip is giving him significant pain and he can no longer continue due to the effects on activities of daily living.? His pain as being constant and stabbing.? Pain is increased with going up and down steps, sitting, and walking.? 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 His pain can reach 9/10 at worst.? He has difficulty even mowing his yard at this time.? He has been through previous physical therapy.? He has tried Tylenol without relief.? He has been using a cane and walker at times.? Patient has had no change in medical history.? He has clearances from his primary care provider Dr. Greer, cardiology with E[facility] Diaz, and manager event Dr. Emily Maddox.? Patient has medical history pertinent for type 2 diabetes mellitus with recent A1c 6.4, chronic kidney disease stage IV, hypertension, coronary artery disease, sleep apnea, restless leg syndrome, gastroesophageal reflux disease, history of edema, abdominal aortic aneurysm, and previous heart stents.? He denies any recent chest pain, fevers chills or recent infections.? After failing conservative measures and discussing all treatment options with Dr. Patrick Morris, the patient does wish to proceed with a direct anterior right total hip arthroplasty.? He denies past history of DVT or pulmonary embolism. REVIEW OF SYSTEMS: Review Of Systems: Constitutional: Reports weight change, but denies change in appetite and fever. Cardiovasular: Reports heart murmur, but denies chest pain and irregular heartbeat. Respiratory: Denies cough, pneumonia, shortness of breath, tuberculosis and wheezing. Gastrointestinal: Denies constipation, diarrhea, heartburn, nausea, rectal itching, bloody stools and vomiting. Musculoskeletal: Reports gait disturbance, pain, trouble walking and weakness, but denies leg swelling. Skin: Reports history of shingles, but denies Raynaud's and tattoo. Neurological: Denies ambulatory dysfunction, dizziness, numbness/tingling and tremor. Psychiatric: Denies anxiety, insomnia and stress. Hematologic/Lymphatic: Reports bleeding/bruising tendency, but denies anemia and past transfusion. Reviewed and updated. PAST MEDICAL HISTORY: Advance Care Plan: Other Directive, LIVING WILL Past Medical History: Medical Problems: Diabetes, High Blood Pressure Kidney Disease/Renal Failure - stage 4 Covid- 19, Hypercholesterolemia heart murmur - as a child? nonrheumatic aortic valve stenosis - had surgery for this Coronary Artery Disease (CAD) - had surgery for this hyperlipidemia abnormal aortic aneurysm - had surgery for this Sleep Apnea - not tested for this? restless leg syndrome, Acid Reflux, shortness of breath on exertion, History of edema, abdominal aortic aneurysm Accidents: None Surgical Hx: Heart Stent - (11/19/2004) x5-[place] Hernia Repair - (1958) [place] Aortic Stent - [facility] Appendectomy back lymph node taken out - around 1949's Cataracts - bilateral? Hip Replacement LT - (07/03/2024) DIRECT ANTERIOR DR. MORRIS AT [facility] Endovascular stent graft for an Abdominal Aortic Aneurysm - (02/2011) Anesthesia Complications: Anesthesia Complications - nausea? Assistive Devices: Glasses - reading? Reviewed and updated. SOCIAL HISTORY: Social History: Marital: .Occupation: Retired.Work Status: Retired.Hand Dominance: Right-handed. Personal Habits:? Cigarette Use: Former.Smokeless Tobacco: Former user.E-Cigarette Use: Never used.Alcohol: Occasionally.Drug Use: Denies Use.Enjoy Exercising: Exercises 1-3 X/Week. Reviewed and updated. VITALS: Ht: 68 Wt: 225lb Wt k.060 BMI: 34.2 BP: 132/82 Pulse: 67 Resp: 17 T: 97.7 T: 36.5C Pain Level: 9/10 O2SatR: 95 ALLERGIES: No Known Drug Allergy No Known Allergies? MEDICATIONS: Glimepiride 2 mg daily, Ascorbic Acid 500 mg daily, [facility] D3 50 mcg ([address]) daily, [facility] [place]-3 Krill Oil 500 mg daily, Dapagliflozin Propanediol 10 mg daily, Coenzyme Q10 100 mg daily, Farxiga 5 mg take 1 tablet by mouth every day with breakfast, Atenolol 50 mg 1 by mouth every day, Rosuvastatin Calcium 40 mg 1 by mouth every day, Lisinopril 20 mg 1 by mouth every day, Aspirin 81 Low Dose 81 mg 1 po qdaily, Nifedipine ER Osmotic Release 60 mg 1 po qdaily, Acetaminophen Extra Strength 500 mg as needed, Berberine? one daily, Vitamin C 500 mg 1 by mouth every day PRE-OP EXAM:? General appearance:NORMAL? ? ? Other: Eyes: Conjunctivae and lids: NORMAL? Pupils: ERR Ears, Nose, Mouth, and Throat: NORMAL? Other: Inspection of lips, teeth and gums: NORMAL? ?Other: Neck: Examination of neck: no masses noted. Respiratory: Assessment of respiratory effort: NORMAL? ?Other: ?Auscultation of lungs: clear to auscultation no wheezes, rhonchi or rales. Cardiovascular:? Auscultation of heart: regular rate and rhythm, positive systolic murmur PHYSICAL EXAMINATION: On exam patient does walk with an antalgic gait with use of cane area he has tenderness to palpation over the lateral hip.? Complains of groin pain and thigh pain.? Right hip flexion 75 with obligatory external rotation, internal rotation neutral, external rotation 25 with pain.? Sensation intact to light touch. IMAGING STUDIES: Previous x-rays of the right hip reveal joint space narrowing, subchondral sclerosis, osteophyte formation consistent with severe stage IV [id number] osteoarthritis with collapse of the weightbearing surface of the femoral head.? This was not appreciated and previous x-rays in January 2024. IMPRESSION: 1.? Severe right hip osteoarthritis 2.? Presence of left total hip arthroplasty: July 03, 2024 3.? Hypertension 4.? Coronary artery disease with previous heart stents 5.? Type 2 diabetes mellitus: A1c 6.4 6.? Chronic kidney disease stage IV 7.? Hypercholesterolemia 8.? Aortic valve stenosis 9.? Abdominal aortic aneurysm with previous stent? 10.? Sleep apnea without use of CPAP 11.? Restless leg syndrome 12.? Gastroesophageal reflux disease 13.? History of edema bilateral lower extremity 14.? Obesity with BMI 34.2 PLAN: Dr. Patrick Morris did discuss and review with the patient all treatment options including surgical versus nonsurgical options.? I will continue plan established by Dr. Patrick Morris.? Patient does wish to proceed with the above-stated procedure.? Potential risks, benefits, and complications of the procedure were discussed in detail including but not limited to , infection, nerve and blood vessel damage, persistent pain, numbness, tingling, paresthesias, blood clot, pulmonary embolism, and requirement for possible further surgery.? The patient expressed full understanding and has no further questions for the doctor.? Patient does agree to proceed with the above-stated procedure and has signed the surgery consent form. POST-OP MEDICATION PLAN: Pain Medications: Postoperative pain regimen will be initiated by Dr. Patrick Morris in the hospital.? Due to the chronic kidney disease stage IV we are avoiding nonsteroidal anti-inflammatories.? Patient will continue our nutrition protocol.? He has been instructed to stop his Farxiga 3 days prior to surgery.? He is no longer taking Ozempic and now using berberine.? He has been instructed to stop all supplements and fish oils 5 days prior to surgery.? He will bring his walker to the hospital. DVT Prophylaxis Plan:? Aspirin 81 mg twice daily for 4 weeks postoperatively.? Denies past history of DVT or pulmonary embolism.? Patient will use PRASHANTH hose for 2 weeks postoperatively. This dictation was created using voice recognition software. Phonetic and/or grammatical errors may exist. ___? I have re-examined the patient.? There are no clinical changes since date of exam. ___? See progress notes for changes. ___? Dictated on admission Date: ? ? ?Time: Signature:
[2025-01-01] VITALS (15 sets, daily range): BP systolic 126–148; BP diastolic 56–92; PULSE 48–59; RESP 13–18; TEMP 35.4–36.9; O2SAT 93–100; BMI 32.3; BMI 33.2
[2025-01-01] MEDS: LR 1,000 ML - BOLUS PREOP 999 ML IV (06:29)
[2025-01-01] MEDS: Magnesium 1 GM over 15 mins IV (06:30)
--- NOTE | 2025-01-01 06:41 | PRE.ANES_ITS ---
ASA Classification* ASA Classification ASA Classification: 2 Assessment & Plan Anesthesia* Anesthesia Assessment Anesthesia Assessment: Discussed sedation and/or anesthesia options, risks, benefits, and alternatives with patient/parents/legal guardian/POA. Questions invited. The patient/parents/legal guardian/POA seems to understand and agrees to proceed with anesthesia plan. Reviewed the physical assessment, medical history, allergy history and patient home medications list prior to surgery/procedure/anesthetic and documented any changes. Performed airway and anesthesia risk assessments. Anesthesia Type Anesthesia Type: Spinal Anesthesia Focused Assessment* Temperature: 98.4 F Pulse Rate: 53 Blood Pressure: 138/60 Respiratory Rate: 18 Pulse Ox: 96 Airway Assessment Mouth opens: >3 cm Mallampati Score: II Labs Anesthesia Preop lab: CBC WBC 7.6 K/mm3 (4.4-11.0) 12/11/24 09:46 12/11/24 RBC 4.65 M/mm3 (4.6-6.2) 12/11/24 09:46 12/11/24 Hgb 13.4 g/dL (13.0-16.5) 12/11/24 09:46 12/11/24 Hct 39.9 % (40-54) L 12/11/24 09:46 12/11/24 Plt Count 154 K/mm3 (150-450) 12/11/24 09:46 12/11/24 CHEMISTRY Potassium 4.4 mmol/L (3.3-5.1) 12/11/24 09:46 12/11/24 Sodium 144 mmol/L (133-145) 12/11/24 09:46 12/11/24 Magnesium 2.4 mg/dL (1.5-2.2) H 12/11/24 09:46 12/11/24 Phosphorus 3.4 mg/dL (2.7-4.5) 12/05/24 10:07 12/05/24 BUN 39 mg/dL (4-19) H 12/11/24 09:46 12/11/24 Creatinine 1.81 mg/dL (0.70-1.20) H 12/11/24 09:46 Glucose 88 mg/dL (70-99) 12/11/24 09:46 12/11/24 POC Glucose 137 mg/dL (74-106) H 07/04/24 12:18 07/04/24 COAG Pre-Assessment Diagnosis/Proposed Procedure Planned Operative Procedure(s): (R) Total Hip Anterior Approach Anesthesia History Anesthesia History - intermodal customer service: Anesthesia History - intermodal customer service Hx Hospitalization Yes: 2-25 L THR 12/11/24 15:54 Any Problems With Anesthesia No 12/11/24 15:54 Cholinesterase deficiency No 12/11/24 15:54 You/Your Family Experience No 12/11/24 15:54 fever (hyperthermia) with Relationship Recent Exposure to Contagious No 01/01/25 06:13 Disease Does patient have nerve No 12/11/24 15:54 stimulator Patient instructed to have device shut off --Does patient have Pacemaker No 01/01/25 06:15 or ICD? When Was Last Pacemaker Check QUESTION #4 FULL TEXT: You/Your Family Experience fever (hyperthermia) with Anesthesia Last Oral Intake Last Oral intake: Last Oral Intake NPO since 04:30 01/01/25 06:15 Meds taken in AM with sips of No 01/01/25 06:15 water? Meds patient instructed to take am of surgery PONV PONV - intermodal customer service: PONV - intermodal customer service Female No 12/11/24 15:54 HX of Motion Sickness No 12/11/24 15:54 HX of N/V After Surgery Yes 12/11/24 15:54 Non-Smoker Yes 12/11/24 15:54 Duration of Surgery greater Yes 12/11/24 15:54 than 60 minutes Number of Risk Factors 3 12/11/24 15:54 PONV Score Moderate Risk 12/11/24 15:54 Height & Weight Height & Weight: Anesthesia: Height & Weight Height 5 ft 10 in 01/01/25 06:15 Weight: 102.421 kg 01/01/25 06:15 Body Mass Index (BMI) 32.3 01/01/25 06:15 Respiratory Assessment Respiratory Assessment - intermodal customer service: Respiratory Tract Infection Hx - intermodal customer service Hx Respiratory Tract Infection No 12/11/24 15:54 STOP Sleep Apnea STOP Sleep Apnea - intermodal customer service: STOP Sleep Apnea - intermodal customer service Hx Hypertension Yes 12/11/24 15:54 Hx Sleep Apnea No 12/11/24 15:54 CPAP BIPAP Do you snore loudly (louder Yes 12/11/24 15:54 than talking or can be heard Do you often feel tired/ No 12/11/24 15:54 fatigued/ sleepy during daytime? Has anyone observed you stop Yes 12/11/24 15:54 breathing during sleep? STOP Results Positive 12/11/24 15:54 QUESTION #5 FULL TEXT : Do you snore loudly (louder than talking or can be heard through closed doors)? 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 Specify any problems Hx of Preganancy in last 3 N/A 12/11/24 15:54 Months Nurse Filling Out Transfusion TD 12/11/24 15:54 & Questions: Date: 12/11/24 12/11/24 15:54 Time: 15:56 12/11/24 15:54 Patient unable to answer at this time (ie. confused, unrespo /Reproduction History /Reproductive History - intermodal customer service: /Reproductive Hx- intermodal customer service Hx Now No 12/11/24 15:54 Gestational Age (in weeks): EDC: Hx Hx Para Hx Section SAB No 12/11/24 15:54 Active Medications Active Medications: Current Medications Generic Name Dose Route Start Last Admin Trade Name Freq PRN Reason Stop Dose Admin Acetaminophen 1,000 mg 01/01/25 07:30 01/01/25 06:23 Acetaminophen 500 Mg Tablet PO 01/01/25 07:31 1,000 mg PREOP ONE Administration Tranexamic Acid 2,000 mg/ 0 mg 01/01/25 07:30 Sodium Chloride 100 ml OPERA.SITE 01/01/25 07:31 X1 ONE Sodium Chloride 78.9 ml/ 0 ml 01/01/25 07:30 Ropivacaine 200 mg/ IV 01/01/25 07:31 Epinephrine HCl 0.6 mg/ INTRAOP ONE Morphine Sulfate 5 mg Dexamethasone Sodium Phosphate 10 mg 01/01/25 07:30 Dexamethasone 10 Mg/Ml Vial IV 01/01/25 07:31 INTRAOP ONE Gabapentin 600 mg 01/01/25 07:30 01/01/25 06:23 Gabapentin 600 Mg Tablet PO 01/01/25 07:31 600 mg PREOP ONE Administration Lactated Ringer's 1,000 mls @ 999 mls/hr 01/01/25 07:30 01/01/25 06:29 IV 01/01/25 08:30 999 mls/hr .Q1H1M LAURI Administration Cefazolin Sodium 2 gm/ Sodium 110 mls @ 150 mls/hr 01/01/25 07:30 Chloride IV 01/01/25 08:13 INTRAOP ONE Lactated Ringer's 1,000 mls @ 999 mls/hr 01/01/25 08:30 IV 01/01/25 09:30 .Q1H1M LAURI Lactated Ringer's 1,000 mls @ 125 mls/hr 01/01/25 09:30 IV 01/01/25 17:29 .Q8H LAURI Magnesium Sulfate 1 gm/ 102 mls @ 408 mls/hr 01/01/25 07:30 01/01/25 06:30 Dextrose IV 01/01/25 07:44 408 mls/hr PREOP ONE Administration Insulin Human Lispro 1 - 6 unit 01/01/25 07:30 Insulin Lispro 100 Unit/Ml Insuln.Pen SC 01/01/25 13:30 Q4H PRN PRN BG>/= 180, SEE PROTOCOL Protocol PFSH Medical History Sleep apnea Wears glasses Arthritis History of renal disease High cholesterol Restless legs Back pain Dietary restriction Heartburn Former smoker Shortness of breath on exertion History of pain when walking History of edema History of stress test History of echocardiogram Cardiology follow-up encounter COVID-19 (~2021) Chronic kidney disease (CKD) Obesity Nonrheumatic aortic (valve) stenosis Essential (primary) hypertension Abdominal aortic aneurysm (AAA) Atherosclerotic heart disease of [place] coronary artery without angina pectoris Diabetes mellitus HLD (hyperlipidemia) Home Medications ?Medication ?Instructions ?Recorded ?Last Taken ?Type atenolol 50 mg tablet 50 mg PO QDAY 09/21/1712/31 10:30 History coenzyme Q10 100 mg capsule 100 mg PO QDAY 09/21/17 10:30 History rosuvastatin 40 mg tablet 40 mg PO DAILY 09/21/1708/22 10:30 History dapagliflozin propanediol 10 mg 10 mg PO DAILY 4 12/29/24 History tablet (Farxiga) GREEN LIPID MUSCLE 750 mg PO DAILY PRN NEEDE D 06/06/24 07/02/24 History ascorbic acid (vitamin C) 500 mg 1 g PO DAILY 06/06/24 12/31/24 History tablet (C-500) cholecalciferol (vitamin D3) 50 50 mcg PO DAILY 12/31/24 10:30 History mcg (2,000 unit) capsule (Vitamin D3) glimepiride 2 mg tablet 2 mg PO DAILY 06/06/2412/31 10:30 History nifedipine 60 mg tablet,extended 60 mg PO DAILY 12/31/24 10:30 History release 24 hr vitamin C 500 mg-quercetin 225 1 cap PO DAILY 06/06/24 12/31/24 10:30 History mg-bioflavonoids, citrus 33 mg capsule (Quercetin Complex) acetaminophen 500 mg tablet 1,000 mg PO TID PRN fever or pain 12/11/24 Unknown History aspirin 81 mg capsule 81 mg PO .QD 12/11/24 10:30 History berberine chloride 500 mg capsule 500 mg PO DAILY 11/2812/31/24 06:30 History clopidogrel 75 mg tablet 75 mg PO DAILY 01/01/2511/29 History Allergy/AdvReac Type Severity Reaction Status Date / Time No Known Allergies Allergy Verified 01/01/25 06:07 Family History Mother Cancer Surgical History History of left hip replacement (~07/2024) Hx of left cataract extraction Hx of right cataract extraction Hx of hernia repair History of appendectomy History of coronary artery stent placement (11/19/04) H/O endovascular stent graft for abdominal aortic aneurysm (02/2011) Social History Smoking Status: Former smoker how long ago did patient quit smoking: Age 42 alcohol intake: current alcohol intake frequency: holidays/special occasions only substance use type: does not use caffeine: Yes Type: carbonated beverages and coffee Number of servings: 1 what type of physical activity do you participate in: none seatbelt use: always do you feel safe at home: Yes Review of Systems (Anesthesia) ROS Narrative System reviewed and no additional complaints, except as documented.
[2025-01-01] MEDS: Lactated Ringers 1,000 ML 75 ML IV ×2 (07:03→17:38)
[2025-01-01] MEDS: Cefazolin 1 GM/5 ML Vial 2 GM IV (07:21)
[2025-01-01] MEDS: Lactated Ringers 1,000 ML 1000 ML IV (07:21)
[2025-01-01] MEDS: Joint Pain Solution (NO KETOROLAC) IV (07:30)
[2025-01-01] MEDS: Midazolam 2 MG/2 ML Syringe IV (07:32)
[2025-01-01] MEDS: LR 1,000 ML - 125 ML/HR (POST BOLUS) POST OP IV (07:45)
--- NOTE | 2025-01-01 08:00 | RAD_ITS ---
PROCEDURE: HIP MIN 2 VIEWS (PORTABLE); O.R. FLUORO FOR C-ARM 01/01/2025 REASON FOR EXAM: RT TOTAL ANTERIOR HIP TECHNIQUE: HIP MIN 2 VIEWS (PORTABLE); O.R. FLUORO FOR C-ARM. Fluoroscopy time: 8 seconds. Dose: 1.42 mGy. COMPARISON: Left hip and pelvis of 07/03/2024 RAD/O.R. Fluoro for C-Arm IMPRESSION: Intraoperative fluoroscopy was performed for right total hip arthroplasty. 3 f luoroscopic images were obtained. Reading Location: [place] [address]
--- NOTE | 2025-01-01 08:00 | RAD_ITS ---
PROCEDURE: HIP MIN 2 VIEWS (PORTABLE); O.R. FLUORO FOR C-ARM 01/01/2025 REASON FOR EXAM: RT TOTAL ANTERIOR HIP TECHNIQUE: HIP MIN 2 VIEWS (PORTABLE); O.R. FLUORO FOR C-ARM. Fluoroscopy time: 8 seconds. Dose: 1.42 mGy. COMPARISON: Left hip and pelvis of 07/03/2024 RAD/Hip Min 2 Views (Portable) IMPRESSION: Intraoperative fluoroscopy was performed for right total hip arthroplasty. 3 f luoroscopic images were obtained. Reading Location: [place] [address]
[2025-01-01] MEDS: fentaNYL 250mcg vial 100 ML 100 MCG IV (08:02)
--- NOTE | 2025-01-01 08:26 | PCM.OPRPT ---
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: Yes Belt Sander Stone: Fabiana Macias Tasks completed by pastoral assistant: Other (See body of operative report) Additional retail assistant store manager?: No Type of Anesthesia: General RN Documented Start/Stop Times: Operation Date: 01/01/25 07:30 Case Time Into Pre-Op 01/01/25 05:38 Anesthesia Start 01/01/25 07:20 Into Room 01/01/25 07:20 Out of Pre-Op 01/01/25 07:23 Procedure Start 01/01/25 07:42 Procedure End 01/01/25 09:29 Anesthesia End 01/01/25 09:32 Out of Room 01/01/25 09:32 Into Recovery 01/01/25 09:35 Out of Recovery 01/01/25 10:54 Procedure Start Time: 07:42 Procedure Stop Time: 09:29 Select all DRAINS/GRAFTS/IMPLANTS that apply: Prosthetic device Prosthetic device details: See body of operative report Special Medications: Ancef Estimated Blood Loss: 500 mL Fluids Replaced: 600 mL crystalloid Specimen collected: Yes Description of specimen(s) removed: Bony cut Description of surgery: Components used: 1. Insignia Vikki femoral stem size 6 high offset 2. Vikki trident 2 acetabular shell size 54 mm 3. Vikki X3 polyethylene E 4. Hubbard Biolox delta 30 mm, 0 mm femoral head Brief history operative indications: 84 yo M who failed conservative measures for their hip osteoarthritis. X-rays were consistent with osteoarthritis including joint space narrowing, osteophyte formation and subchondral cysts. Total hip replacement was discussed with the patient with risks and benefits including but not limited to blood loss, DVTs, PEs, neurovascular damage, dislocation, general risks of anesthesia including loss of life. Patient demonstrated an understanding medical clearance is obtained the patient was consented for surgery. Procedure: On the date of procedure the patient's R hip was marked in the preoperative area. Patient was then taken back to the operating room where anesthesia assumed control of the C-spine and airway and administered anesthetic. Patient was transferred to the operating table and placed in the supine position. The hips were placed at the break of the bed and a sacral bump was placed. The R lower extremity was then prepped out in a sterile fashion using chlorhexidine while the surgeon scrubbed. The PA was vital in the positioning of the patient. Upon reentering the room the R lower extremity was draped in the standard orthopedic fashion and the incision was marked. A timeout was called and everyone agreed upon the side, the site, the procedure be performed, antibody given, and patient's identity. At this time incision was made through skin, subcutaneous tissue, and fat down to fascia. The fascia was then incised and the TFL was retracted laterally. A retractor was placed on the lateral border of the femoral neck. Attention was directed to the inferior portion of the approach and all crossing vessels were identified and appropriately coagulated. A retractor was then placed on the medial portion of the femoral neck. The anterior capsule was then cleared of all soft tissue and then H shaped capsulotomy was made. The retractors were then placed inside the capsule. The femoral neck was identified and a cleanup cut was made. At this time a power corkscrew was used to remove the femoral head. Attention was then turned toward the acetabulum where the soft tissues were appropriately retracted and the acetabulum was sequentially reamed to 54 mm. A 54 mm cup was then selected and impacted into place. Acetabular liner was impacted into place and locking mechanism was verified. The position of the acetabular cup was then verified under live fluoroscopy. Attention was then turned to the femur. Soft tissue releases on the medial and lateral femoral neck were appropriately done, the leg was externally rotated and lateralized. A Felipe retractor was placed medially and proximally to the greater trochanter this allowed appropriate visualization and exposure of the femoral canal. Rongeour was then used to remove excess lateral bone. A canal finder and entry broach were used to open the proximal canal. Once we verified we were down the femoral canal we subsequently broached up to a size 6 femur. The appropriate neck was placed in the previously selected head was trialed with a 0 mm neck. Traction was pulled and the hip was reduced with internal rotation. Once it was appropriately reduced and stability was checked. There was minimal shuck, equal leg lengths and appropriate stability with hyperextension and external rotation as well as with 90? flexion and internal rotation. Fluoroscopy was then also used to verify the position of the components and leg lengths using the contralateral side for comparison. The trial components were then dislocated the proximal femur was again exposed and the components were removed from the wound. The final components were verified and opened. The wound was copiously irrigated out with normal saline. The acetabulum was checked for any residual debris. The final components were placed and impacted. Traction and internal rotation were again used to reduce the hip. After adequate reduction the hip remained stable with appropriate leg lengths. The final components were once again checked with live fluoroscopy and were found to be satisfactory. The wound was then copiously irrigated with normal saline once more, and hemostasis was obtained. Closure was then done using #1 Vicryl runner to close the fascia. A 2-0 vicryl interuppted sutures were used to close the subcutaneous skin. A 3-0 barbed Monocryl and Steri-Strips were used for final skin closure. A Silverlon dressing was placed. Patient was awakened by anesthesia and transferred to the [facility]. Patient was then transferred to the PACU for recovery. Postoperative plan: Patient will get 24 hours postop antibiotics. Patient will get in-house physical therapy and will be weight-bear as tolerated. Patient will follow up in office in 2 weeks for a wound check and x-rays. Aspirin 81 mg twice daily. During the course of the procedure the physician washer hand (PE) played a vital role. Their intimate knowledge of my steps in the procedure aided in safe and expedient completion of the procedure. The PE played a vital rolls in positioning particularly in obtaining the appropriate positioning of the sacral bump. The PE was also vital in the retraction of soft tissues during the exposure and especially the femoral work as this is a vital part of the procedure to prevent complications and fractures. The PE was also vital and protecting soft tissues during times of bony cuts and reaming. He also played a vital role in closure with my direct supervision. The PE was also important during reduction and dislocation of the joint and trials intraoperatively. Surgical Findings: Stable hip with equal leg lengths. Stage IV Complications Complications: No Admit VTE Documentation VTE Present on Admission: No VTE Mechan Device Prophylaxis: SCD's and Thigh High PRASHANTH Hose VTE Pharm Prophylaxis ordered?: Yes
[2025-01-01] MEDS: TXA 2000mg in NS 100ml (Placed in Wound) OPERA.SITE (08:27)
--- NOTE | 2025-01-01 09:35 | SUR.PHASEI ---
ON PACU ARRIVAL, NOTED RIGHT PROXIMAL THIGH, ANTERIOR OVER INCISION NOTABLY EDEMATOUS, SOFT, NO BLEEDING, NO PULSATION, PRESSURE HELD. CALLED O.R. NURSE, JORGE, TO BEDSIDE TO ABBEY, STATES SHE BELIEVES IT'S THE SAME BUT REFERRED TO DR HESTER. CONTACTED DR HESTER WHO CAME TO BEDSIDE AT APPROX 0943, REPORTS NO PROBLEM. DID EXPLAIN THIS RN BRIEFLY HELD MANUAL PRESSURE AND THERE IS SOME BRUISING AROUND DRESSING WHICH WAS NOT PRESENT BEFORE. DR HESTER NOTED, NO NEW ORDERS AT THIS TIME.
--- NOTE | 2025-01-01 09:50 | RAD_ITS ---
PROCEDURE: HIP MIN 2 VIEWS (PORTABLE) 01/01/2025 REASON FOR EXAM: POST OP TECHNIQUE: HIP MIN 2 VIEWS (PORTABLE) COMPARISON: Prior study dated July 03, 2024. FINDINGS: The patient is status post right total hip replacement. There is good alignment. Remote left total hip replacement. Endoluminal stent grafting of the distal abdominal aorta and proximal bilateral common iliac arteries. RAD/Hip Min 2 Views (Portable) IMPRESSION: Status post right total hip replacement. There is good alignment. Postoperative soft tissue changes. Reading Location: [id number]
--- NOTE | 2025-01-01 10:48 | PCM.POST.ANE ---
Anesthesia: Postop Eval I Current Vital Signs Temperature: 96.8 F Pulse Rate: 56 Blood Pressure: 130/70 Respiratory Rate: 18 Pulse Ox: 95 Oxygen Delivery Method: Simple Mask Oxygen Flow Rate (L/min): 10 Assessment Airway patent: Yes Spontaneous unlabored respirations: Yes Mental status: Asleep nausea: No Vomiting: No Anesthesia Complication: No Fluid Hydration Crystalloid volume administer (ml): 600 Total IV fluid infused: 600 Progress Note Anesthesia document: Postop Eval 1 completed: Yes
--- NOTE | 2025-01-01 11:45 | POSTOPAN2_ITS ---
Anesthesia Postop Eval I Sum Postop Eval Completion status Anesthesia document: Postop Eval 1 completed: Yes Anesthesia Postop Eval I Summary Anesthesia Postop Eval I Summary: Anesthesia Postop Eval I: Assessment Summary Airway patent Yes 01/01/25 10:49 CONSTRUCTION JOB [email or web address] Spontaneous unlabored Yes 01/01/25 10:49 CONSTRUCTION JOB TITLES.GRETEL respirations Mental status Asleep 01/01/25 10:49 CONSTRUCTION JOB TITLES.ETHANLI nausea No 01/01/25 10:49 CONSTRUCTION JOB TITLES.ETHANLI Vomiting No 01/01/25 10:49 CONSTRUCTION JOB TITLES.GRETEL Anesthesia Postop Eval I: Fluid Summary Crystalloid volume administer 600 01/01/25 10:49 CONSTRUCTION JOB TITLES.ETHANLI (ml) Colloids volume administered ( ml) Blood Product volume administered (ml) Total IV fluid infused 600 01/01/25 10:49 CONSTRUCTION JOB TITLES.GRETEL Anesthesia Postop Eval I: Summary Notes Anesthesia Complication No 01/01/25 10:49 CONSTRUCTION JOB [email or web address].GRETEL Anesthesia Complication Comment: Post-operative progress note Anesthesia: Postop Eval II Evaluation Mental status: Awake Pain Level: 0 nausea: No Vomiting: No
--- NOTE | 2025-01-01 11:45 | PCM.POSTANE2 ---
Anesthesia Postop Eval I Sum Postop Eval Completion status Anesthesia document: Postop Eval 1 completed: Yes Anesthesia Postop Eval I Summary Anesthesia Postop Eval I Summary: Anesthesia Postop Eval I: Assessment Summary Airway patent Yes 01/01/25 10:49 DIRECTOR [employer]USTRI[employer] MUSE[employer].ETHANLI Spontaneous unlabored Yes 01/01/25 10:49 DIRECTOR INDUSTRI[employer] MUSE[employer].[email or web address] respirations Mental status Asleep 01/01/25 10:49 DIRECTOR INDUSTRI[employer].ETHANLI nausea No 01/01/25 10:49 DIRECTOR [employer]UST[employer].ETHANLI Vomiting No 01/01/25 10:49 DIRECTOR INDUST[employer]USE[employer].GRETEL Anesthesia Postop Eval I: Fluid Summary Crystalloid volume administer 600 01/01/25 10:49 DIRECTOR [employer]UST[employer].ETHANLI (ml) Colloids volume administered ( ml) Blood Product volume administered (ml) Total IV fluid infused 600 01/01/25 10:49 DIRECTOR INDUST[employer].GRETEL Anesthesia Postop Eval I: Summary Notes Anesthesia Complication No 01/01/25 10:49 DIRECTOR INDUST[employer].GRETEL Anesthesia Complication Comment: Post-operative progress note Anesthesia: Postop Eval II Evaluation Mental status: Awake Pain Level: 0 nausea: No Vomiting: No
[2025-01-01] MEDS: Senna/Docusate Sodium 1 Tablet 2 TABLET PO ×2 (13:56→21:50)
[2025-01-01] MEDS: Ensure Surgery 237 ML LIQUID PO ×2 (14:00→17:38)
[2025-01-01] MEDS: Cefazolin 1 GM/50 ML BAG IV (17:43)
--- NOTE | 2025-01-01 19:00 | PCM.PN.HOSP ---
Subjective Subjective Patient was seen and examined today, he underwent right direct anterior minimally invasive total hip replacement due to primary osteoarthritis. At the time of my examination, patient has no specific complaints. Past medical history also includes coronary artery disease, aortic stenosis, hyperlipidemia, and chronic kidney disease stage IIIb Objective Data Objective Data Vital Signs: Vital Signs Temp Pulse Resp BP Pulse Ox O2 Del Method O2 Flow Rate 97.7 F L 56 L 18 128/62 H 95 Nasal Cannula 2 01/01/25 14:56 01/01/25 14:56 01/01/25 14:56 01/01/25 14:56 01/01/25 15:10 01/01/25 16:56 01/01/25 15:10 Oxygen Flow Rate (L/min) 2 Oxygen Delivery Method Nasal Cannula Weight: 105.097 kg Body Mass Index (BMI) 33.2 Intake & Output: Intake and Output for Last 24 Hours 12/30/24 12/31/24 01/01/25 23:59 23:59 23:59 Intake Total 3443.75 / 3443.75 Output Total 500 / 500 Balance 2943.75 / 2943.75 Lab / Micro Data 12/11/24 09:46 12/11/24 09:46 Labs: Laboratory Results - last 24 hr 01/01/25 06:04: POC Glucose 197 H 01/01/25 10:14: POC Glucose 139 H Micro: Microbiology 12/11/24 09:46 Swab (Method) Nasal Screen MRSA/MSSA - Final Radiography Diagnostic Testing: Radiology Impression C-Arm Fluoroscopy 01/01/25 08:00 IMPRESSION: Intraoperative fluoroscopy was performed for right total hip arthroplasty. 3 fluoroscopic images were obtained. Reading Location: [facility]- Hip X-Ray 01/01/25 08:00 IMPRESSION: Intraoperative fluoroscopy was performed for right total hip arthroplasty. 3 fluoroscopic images were obtained. Reading Location: [facility]- Hip X-Ray 01/01/25 09:50 IMPRESSION: Status post right total hip replacement. There is good alignment. Postoperative soft tissue changes. Reading Location: [facility] Physical Exam Const alert, oriented x3, no apparent distress, average body habitus and healthy appearing General Appearance: cooperative, well kempt and well developed Orientation / Consciousness: awake, oriented to person, oriented to place and oriented to time HEENT normocephalic, head/scalp atraumatic and moist oral mucous membranes Eyes PERRL, EOMs intact bilaterally and conjunctivae normal Neck supple, no JVD, thyroid normal and no carotid bruits General: trachea midline Resp normal respiratory effort, no retractions, no use of accessory muscles and clear to auscultation bilaterally Auscultation: Negative for rales, rhonchi or wheezes Cardio regular rate, regular rhythm, S1 normal heart sound, S2 normal heart sound, no murmurs, no rub and no gallops GI normal to inspection, nondistended, normoactive bowel sounds, soft to palpation, non-tender and non-distended Extremity no clubbing, cyanosis or edema Skin no rashes or lesions noted General Skin Exam: no breakdown Neuro oriented x3, CN's II-XII intact bilaterally, no focal motor deficits and no sensory deficits noted Sensorium / Orientation: awake and alert Speech: speech normal Psych affect normal Assessment & Plan Assessment/Plan (1) Status post total hip replacement, left: PLAN: Plan 1. Coronary artery disease-patient appears stable at this time, labs will be monitored as necessary #2 chronic kidney disease stage IIIb-complicates care, management, recovery, and prognosis, BMP will be obtained in the morning #3 type 2 diabetes-patient's blood sugars will be monitored, sliding scale insulin will be administered as needed #4 essential hypertension-patient will remain on his present blood pressure medications #5 hyperlipidemia-patient is on a statin #6 osteoarthritis/status post minimally invasive right total hip replacement-PT and OT will see the patient Total clinical time spent by myself addressing patient's medical issues, reviewing all of his data, and collaborating with patient's care team: 35 minutes Charges/Coding Visit Charges Inpatient E&M: 10148 Subs Hosp L2
[2025-01-02] MEDS: BENZOCAINE/MENTHOL 1 LOZENGE MUCOUS MEM (01:43)
[2025-01-02] MEDS: Cefazolin 1 GM/50 ML BAG IV (01:44)
[2025-01-02 01:47] VITALS: BP 163/63; PULSE 59; RESP 16; TEMP 36.8; O2SAT 97
[2025-01-02 05:57] VITALS: BP 160/73; PULSE 63; RESP 16; TEMP 36.4; O2SAT 96
[2025-01-02 07:41] LABS: Hematocrit 27.3 % (40-54); Hemoglobin 9.3 g/dL (13.0-16.5); Immature Granulocytes Count 0.030 X10^3/uL (0.0-0.0); Mean Corp Hgb Conc 34.1 g/dL (32-36); Mean Corpuscular Volume 86.1 fL (80-94); Mean Platelet Vol. 10.7 fl (6.2-12.0); NRBC Flagged by Analyzer 0 % (0-5); POSITIVE COUNT YES; Platelet Count 134 K/mm3 (150-450); RBC Distribution Width CV 14.5 % (11.6-14.6); RBC Distribution Width SD 45.3 fl (35.1-43.9); Red Blood Count 3.17 M/mm3 (4.6-6.2); White Blood Count 11.0 K/mm3 (4.4-11.0)
[2025-01-02 07:42] LABS: Anion Gap 11 (5-15); BUN 48 mg/dL (4-19); BUN/Creat Ratio 23.6 RATIO (10-20); Calcium,Total 8.7 mg/dL (7.6-11.0); Carbon Dioxide 17.0 mmol/L (21.0-32.0); Chloride 107 mmol/L (98-108); Estimated Creatinine Clearance 34.23 ml/min (50-250); Glucose 179 mg/dL (70-99); Potassium 5.3 mmol/L (3.3-5.1)
[2025-01-02 07:55] VITALS: BP 157/53; PULSE 62; RESP 18; TEMP 37.2; O2SAT 94
[2025-01-02] MEDS: Senna/Docusate Sodium 1 Tablet 2 TABLET PO (07:58)
[2025-01-02] MEDS: NIFEdipine 60 MG Tablet PO (07:58)
[2025-01-02] MEDS: Lactated Ringers 1,000 ML 75 ML IV (08:03)
[2025-01-02 08:20] LABS: Differential Indicated SCAN CRITERIA MET
--- NOTE | 2025-01-02 09:26 | PN.ORTHO_ITS ---
Subjective Subjective Patient is sitting comfortably in bedside chair. Patient states he feels like he is doing well. Patient states that the pain is adequately controlled at this point. Patient states he did well with physical therapy yesterday. Patient states he has been up to the bathroom with his walker. Patient states that he does feel comfortable going home with the help of his . Patient denies any new numbness or tingling. Patient denies any nausea, vomiting, dizziness. Patient denies any shortness of breath, chest pain, calf pain. Patient denies any adverse events overnight. Objective Data Objective Data Vital Signs: Vital Signs Temp Pulse Resp BP Pulse Ox O2 Del Method O2 Flow Rate 99.0 F 62 18 157/53 H 94 Room Air 2 01/02/25 07:55 01/02/25 07:55 01/02/25 07:55 01/02/25 07:55 01/02/25 07:55 01/02/25 07:55 01/02/25 05:57 Oxygen Flow Rate (L/min) 2 Oxygen Delivery Method Room Air Weight: 105.097 kg Body Mass Index (BMI) 33.2 Intake & Output: Intake and Output for Last 24 Hours 12/31/24 01/01/25 01/02/25 23:59 23:59 23:59 Intake Total 4643.75 / 4643.75 1450 / 1450 Output Total 500 / 500 Balance 4143.75 / 4143.75 1450 / 1450 Lab / Micro Data 01/02/25 07:13 01/02/25 07:13 Labs: Laboratory Results - last 24 hr 01/01/25 10:14: POC Glucose 139 H 01/01/25 22:03: POC Glucose 350 H 01/02/25 06:02: POC Glucose 201 H 01/02/25 07:13: WBC 11.0, RBC 3.17 L, Hgb 9.3 L, Hct 27.3 L, MCV 86.1, MCH 29.3, MCHC 34.1, RDW Std Deviation 45.3 H, RDW Coeff of Bruno 14.5, Plt Count 134 L, MPV 10.7, Immature Gran % (Auto) 0.300, Neut % (Auto) 83.5 H, Lymph % (Auto) 6.7 L, Glades % (Auto) 9.3, Eos % (Auto) 0.1, Baso % (Auto) 0.1, Absolute Neuts (auto) 9.2 H, Absolute Lymphs (auto) 0.73 L, Nucleated RBC % 0, Platelet Estimate SLT DEC, Sodium 136, Potassium 5.3 H, Chloride 107, Carbon Dioxide 17.0 L, Anion Gap 11, BUN 48 H, Creatinine 2.02 H, Estim Creat Clear Calc 34.23 L, Est GFR (MDRD) Non-Af 32 L, BUN/Creatinine Ratio 23.6 H, Glucose 179 H, Calcium 8.7 Micro: Microbiology 12/11/24 09:46 Swab (Method) Nasal Screen MRSA/MSSA - Final Radiography Diagnostic Testing: Radiology Impression C-Arm Fluoroscopy 01/01/25 08:00 IMPRESSION: Intraoperative fluoroscopy was performed for right total hip arthroplasty. 3 fluoroscopic images were obtained. Reading Location: [place] [id number] Hip X-Ray 01/01/25 08:00 IMPRESSION: Intraoperative fluoroscopy was performed for right total hip arthroplasty. 3 fluoroscopic images were obtained. Reading Location: [place] [id number] Hip X-Ray 01/01/25 09:50 IMPRESSION: Status post right total hip replacement. There is good alignment. Postoperative soft tissue changes. Reading Location: [facility] Physical Exam Narrative Vital signs stable and afebrile PRASHANTH hose in place bilaterally SCDs in place bilaterally. Mepilex dressing is without drainage on inspection. Left hip soft and supple. Dorsiflexion and plantarflexion are performed actively without pain or restriction Sensation intact light touch Neurovascular intact overall Negative Homans bilaterally. Const alert, oriented x3 and no apparent distress Assessment & Plan Assessment/Plan (1) Status post total hip replacement, left: PLAN: Status post left total hip replacement day 1. 1. DVT prophylaxis: Patient will resume his regular dose of Plavix as well as adding an aspirin 81 mg twice daily for 4 weeks postoperatively. Patient was educated to wear his PRASHANTH hose for 2 weeks postoperatively. 2. Pain medications: Patient will be on Tylenol [id number] as well as oxycodone as needed for pain control. Patient will not use any anti- inflammatory medications due to chronic kidney disease. OARRS report was checked today. 3. Constipation: Patient was instructed to take senna lax as instructed until her first bowel movement. Patient was educated if he has not had a bowel movement in 3 days to call our office for reevaluation. 4. Physical therapy: Patient was able to work with physical therapy yesterday. Patient states that he he felt that he did okay with weightbearing as tolerated. Patient was able to walk 220 feet with physical therapy around the hallway. Patient states he felt very good doing that. Patient does have outpatient physical therapy established. 5. H&H: 9.3/27.3. Patient's vitals are stable and afebrile at this time. We will start iron and folic acid at this time for postoperative anemia. Patient will be educated to follow-up with primary care provider. Patient will be given outpatient lab form to receive labs in 1 week and follow-up with primary care provider. 6. GFR: 32. Patient has known chronic kidney disease stage IV and is followed by outpatient nephrology. 7. Hyperglycemia: Patient does have some postoperative hyperglycemia but did receive dextrose intraoperatively. 8. Incentive spirometry: Patient was encouraged to use incentive spirometer every hour that awake for the first week to exercise lungs and decrease risk of postoperative lung infection. 9. Dressings: Patient was educated can get dressing wet on postoperative day 1. Can remove dressing on postoperative day 5. Patient can leave incision open to air as long as clean, dry, intact following removal of dressing. 10. Patient is to follow-up for postoperative instructions. 11. Medicine is involved with the care of this patient. Appreciate recommendations from medicine at this time. 12. Nursing staff did state that patient was on 2 L at times throughout the night because of some improvement in his oxygen saturation. Patient is currently off of oxygen at this time. 12. Disposition: Patient does plan to go home with the help of his at home. Patient states that this time he does feel comfortable with going home. Patient states he has been up to the bathroom himself. I would like patient to work with physical therapy prior to discharge. I would like medicine to see patient prior to discharge. Patient was educated as long as his pain maintains adequately controlled, works with and is cleared by physical therapy, he remains medically stable and is okay for discharge from medicine perspective he will be okay for discharge to his home today. Patient does have outpatient physical therapy established. Patient does have 2-week follow-up visit scheduled with our office. Patient's medications will be sent to [facility] outpatient pharmacy. Patient was encouraged to call with any questions, concerns, new problems.
--- NOTE | 2025-01-02 10:54 | CASEMGMT ---
Met with patient to complete AZEVEDO form. AZEVEDO form and its content were verbally explained and patient's questions were answered to the best of my ability.? Patient voiced understanding and signed AZEVEDO form.? Patient provided a copy of signed AZEVEDO form and original placed in patient's chart.? Patient had no further questions. Flaca Godoy, Discharge Planning Asst
--- NOTE | 2025-01-02 12:12 | PCM.DC ---
Discharge Instructions DC O2, CPAP, BIPAP needs Home O2 Discharge instructions: No Dressing / Incision Discharge Activity: May Shower (May get incision wet on postoperative day 1.) and Use Walker (Weightbearing as tolerated with walker.) Weight Bearing Status: Weight bearing as tolerated (With walker.) Keep extremity elevated above heart level: Left Leg (Status post left total hip replacement.) Dressing / Incision Call your doctor if your incision/area has: Continuous Slow Oozing, Sudden Increased Bleeding, Increased Pain/ Swelling, Increased Redness, Foul Smelling Discharge and Swelling at the incision site Call your doctor if you observe: Fever of 101 or Higher, Coldness, Increased Pain, Numbness or Tingling, Change in Color, Inability to urinate, Inability to have a bowel movement, Using more than 1 pad per hour, Shortness of breath, Dizziness, Fainting spells, Swelling in the ankles, Chest pain, Prolonged hiccupping, Increased palpitations (irregular heartbeat), Calf discomfort and Uncontrolled pain Remove Dressing in: 5 days (Patient is okay to remove dressing on postoperative day 5. Postoperative day 5 will be 01/06/2025. Patient may leave incision open to air as it is clean, dry, intact.) Cleanse incision/area with: Soap & Water (Gentle soap and water over incision following dressing removal.) Additional Dressing/Incision Instructions:: No soaking, submerging for 6 weeks postoperatively. No lotions, salves, oils over incision for 6 weeks postoperatively. Encourage incentive spirometry. OARRS report was checked. Patient was educated no drinking alcohol, operating motor vehicle, making important decisions while taking narcotic pain medication. Follow Up Care Test Results: Test results from this visit will be discussed in further detail at your follow-up appointment, if applicable. Discharge Plan Admission Admit Date/Time: 01/01/25 06:57 Attending Provider: Patrick Morris Primary Care Provider: Domingo Greer Consulting Providers: Trent Kay Discharge Orders/Prescriptions Prescriptions: New acetaminophen 500 mg Tablet 1,000 mg PO Q8 Qty: 0 0RF famotidine 20 mg Tablet 20 mg PO DAILY 30 Days Qty: 30 0RF ferrous sulfate [FeroSul] 325 mg (65 mg iron) Tablet 325 mg PO 1200,1700 30 Days Qty: 60 0RF folic acid 1 mg Tablet 1 mg PO BREAKFAST 30 Days Qty: 30 0RF oxycodone 5 mg Tablet 5 - 10 mg PO Q4H PRN PRN (Reason: As needed for pain control.) 7 Days Qty: 42 0RF sennosides-docusate sodium [Stimulant Laxative Plus] 8.6-50 mg Tablet 2 tab PO BID 3 Days Qty: 12 0RF Rx Instructions: Take until first bowel movement and then can take as needed. aspirin 81 mg Tablet,Chewable 81 mg PO BIDCM Qty: 0 0RF Rx Instructions: Take 81 mg aspirin twice daily for 4 weeks postoperatively for DVT prophylaxis. After 4 weeks we will then go back to 81 mg aspirin daily as prescribed. Continued atenolol 50 mg tablet 50 mg PO QDAY coenzyme Q10 100 mg capsule 100 mg PO QDAY rosuvastatin 40 mg tablet 40 mg PO DAILY dapagliflozin propanediol [Farxiga] 10 mg tablet 10 mg PO DAILY berberine chloride 500 mg capsule 500 mg PO DAILY aspirin 81 mg capsule 81 mg PO .QD Rx Instructions: Take 81 mg aspirin twice daily for 4 weeks postoperatively for DVT prophylaxis. After 4 weeks we will then go back to 81 mg aspirin daily as prescribed. clopidogrel 75 mg tablet 75 mg PO DAILY glimepiride 2 mg tablet 2 mg PO DAILY nifedipine 60 mg tablet extended release 24hr 60 mg PO DAILY ascorbic acid (vitamin C) [C-500] 500 mg tablet 1 g PO DAILY cholecalciferol (vitamin D3) [Vitamin D3] 50 mcg (2,000 unit) capsule 50 mcg PO DAILY Quercetin Complex 500-225-33 mg capsule 1 cap PO DAILY GREEN LIPID MUSCLE 750 mg PO DAILY PRN (Reason: NEEDED) Held acetaminophen 500 mg Tablet 1,000 mg PO TID PRN (Reason: fever or pain) Hold Instructions: Resume on 01/30/25. Rx Instructions: Do not take more than 3000 mg Tylenol in a 24-hour period. Other Ambulatory Orders: CBC W/Diff, Automated (Routine) Timeframe: 1 Week Facility: [facility] - Location: Laboratory Ordered By: Fabiana Macias Referrals / Follow Up: Domingo Greer MD [Primary Care Provider] - Disposition Disposition (needs filled in before D/C Order can be placed): Home, Self Care
--- NOTE | 2025-01-02 12:44 | CASEMGMT ---
Addendum entered by Thierry Zhao 01/02/25 12:58: Correction - Pt plans to complete a CBC draw at the [facility] OP Lab with PCP follow up subsequently. Original Note: Pt has an order for DC placed. PA is requesting PCP follow up in 10 days for a CBC. corporate secretary notified and will schedule pt for a follow up appt. PAULINO CM to the pt room at this time. Pt's at bedside. Pt states that he has a FWW and cane at home. Pt states that he is established with [facility] for OP therapy starting later this week. Pt states that he plans to start therapy at [facility] but may transition to [facility] depending on the cost of the therapy. Pt states that he feels safe with this plan and denies any further DC needs, questions, or concerns.
[2025-01-02 13:51] VITALS: BP 147/66; PULSE 59; RESP 18; TEMP 36.4; O2SAT 97
--- NOTE | 2025-01-02 14:31 | PHA.DC.MC.R ---
Pharmacy [facility] Counseling Pharmacy Service has performed discharge medication reconciliation and counseling for this patient. 1. ACETAMINOPHEN 1000MG PO Q8 (HOLD PRN TYLENOL) 2. ASPIRIN 81MG PO BIDCM X 4 WEEKS, THEN RESUME DAILY 3. FAMOTIDINE 20MG PO DAILY 4. FERROUS SULFATE 325MG PO LUNCH AND DINNER 5. FOLIC ACID 1MG PO DAILY 6. OXYCODONE 5-10MG PO Q4H PRN PAIN 7. SENNA/DOCUSATE 2T PO BID UNTIL FIRST BOWEL MOVEMENT THEN TAKE PRN CONSTIPATION The patient's discharge medication list was reviewed for discrepancies and discrepancies were resolved. The patient was counseled on the following discharge medications and changes in medications for homegoing were reviewed. The Reason for Use, instructions for use, and potential side effects were reviewed for all new medications. The patient's questions regarding all of their medications were answered. The patient was able to verbally demonstrate an understanding of their discharge medications. Medications at Discharge Home Medications atenolol 50 mg tablet 50 mg PO QDAY 09/21/17 coenzyme Q10 100 mg capsule 100 mg PO QDAY 09/21/17 rosuvastatin 40 mg tablet 40 mg PO DAILY 09/21/17 dapagliflozin propanediol 10 mg tablet (Farxiga) 10 mg PO DAILY 01/10/24 GREEN LIPID MUSCLE 750 mg PO DAILY PRN NEEDED 06/06/24 ascorbic acid (vitamin C) 500 mg tablet (C-500) 1 g PO DAILY 06/06/24 cholecalciferol (vitamin D3) 50 mcg (2,000 unit) capsule (Vitamin D3) 50 mcg PO DAILY 06/06/24 glimepiride 2 mg tablet 2 mg PO DAILY 06/06/24 nifedipine 60 mg tablet,extended release 24 hr 60 mg PO DAILY 06/06/24 vitamin C 500 mg-quercetin 225 mg-bioflavonoids, citrus 33 mg capsule (Quercetin Complex) 1 cap PO DAILY 06/06/24 acetaminophen 500 mg tablet 1,000 mg PO TID PRN fever or pain 12/11/24 Held on 01/02/25. Instructions: Resume on 01/30/25. aspirin 81 mg capsule 81 mg PO .QD 12/11/24 berberine chloride 500 mg capsule 500 mg PO DAILY 12/11/24 clopidogrel 75 mg tablet 75 mg PO DAILY 01/01/25 acetaminophen 500 mg tablet 1,000 mg (2 x 500 mg) PO Q8 #0 tabs 01/02/25 aspirin 81 mg chewable tablet 81 mg PO BIDCM #0 tabs 01/02/25 famotidine 20 mg tablet 20 mg PO DAILY 30 days #30 tabs 01/02/25 ferrous sulfate 325 mg (65 mg iron) tablet (FeroSul) 325 mg PO 1200,1700 30 days #60 tabs 01/02/25 folic acid 1 mg tablet 1 mg PO BREAKFAST 30 days #30 tabs 01/02/25 oxycodone 5 mg tablet 5 - 10 mg (1 - 2 x 5 mg) PO Q4H PRN PRN As needed for pain control. 7 days #42 tabs 01/02/25 sennosides 8.6 mg-docusate sodium 50 mg tablet (Stimulant Laxative Plus) 2 tab PO BID 3 days #12 tabs 01/02/25
== END 2025-01-02 14:46 | disposition home or self-care (01) ==
LOC: SDC 09:05 → MS3 09:05
PROVIDERS: Anesthesiology; Admitting Provider Specialist; PCP Family Medicine; Referring Provider Specialist; Visit Provider Specialist
PROC: (CPT 27284; principal; 2025-01-01 07:05)
DX: M16.11 Unilateral primary osteoarthritis, right hip (principal); E11.22 Type 2 diabetes mellitus with diabetic chronic kidney disease; N18.32 Chronic kidney disease, stage 3b; I12.9 Hypertensive chronic kidney disease with stage 1 through stage 4 chronic kidney disease, or unspecified chronic kidney disease; E78.00 Pure hypercholesterolemia, unspecified; G47.30 Sleep apnea, unspecified; G25.81 Restless legs syndrome; Z87.891 Personal history of nicotine dependence; I25.10 Atherosclerotic heart disease of native coronary artery without angina pectoris; Z79.84 Long term (current) use of oral hypoglycemic drugs; R06.02 Shortness of breath; Z79.899 Other long term (current) drug therapy; I35.0 Nonrheumatic aortic (valve) stenosis; E66.9 Obesity, unspecified; Z68.34 Body mass index [BMI] 34.0-34.9, adult; K21.9 Gastro-esophageal reflux disease without esophagitis
CPT/HCPCS: 27130; 01214; 36415; 73502; 76000; 80048; 82040; 82962; 83036; 83735; 85025; 87081; 93005; 94668; 96361; 96365; 96366; 97162; 97166; 97530; 99221; C1776; G0378; J2405; J3475

== ENCOUNTER → 2025-01-15 | Outpatient (CLI) | payer MEDICARE, SELFPAY ==
[2025-01-15 15:48] LABS: Hematocrit 31.0 % (40-54); Hemoglobin 9.9 g/dL (13.0-16.5); Immature Granulocytes Count 0.030 X10^3/uL (0.0-0.0); Mean Corp Hgb Conc 31.9 g/dL (32-36); Mean Corpuscular Volume 90.4 fL (80-94); Mean Platelet Vol. 9.9 fl (6.2-12.0); NRBC Flagged by Analyzer 0 % (0-5); Platelet Count 323 K/mm3 (150-450); RBC Distribution Width CV 16.9 % (11.6-14.6); RBC Distribution Width SD 54.6 fl (35.1-43.9); Red Blood Count 3.43 M/mm3 (4.6-6.2); White Blood Count 8.2 K/mm3 (4.4-11.0)
[2025-01-15 16:04] LABS: Anion Gap 15 (5-15); BUN 39 mg/dL (4-19); BUN/Creat Ratio 21.8 RATIO (10-20); Calcium,Total 9.6 mg/dL (7.6-11.0); Carbon Dioxide 15.9 mmol/L (21.0-32.0); Chloride 109 mmol/L (98-108); Glucose 112 mg/dL (70-99); Potassium 4.2 mmol/L (3.3-5.1)
== END | disposition home or self-care (01) ==
LOC: MFPLAB 11:21
PROVIDERS: PCP Family Medicine; Visit Provider Family Medicine
DX: D64.9 Anemia, unspecified (principal); N18.9 Chronic kidney disease, unspecified
CPT/HCPCS: 36415; 80048; 85025

== ENCOUNTER → 2025-02-28 | Outpatient (CLI) | payer MEDICARE, SELFPAY ==
[2025-02-28 12:47] LABS: Hematocrit 40.4 % (40-54); Hemoglobin 12.7 g/dL (13.0-16.5); Immature Granulocytes Count 0.020 X10^3/uL (0.0-0.0); Mean Corp Hgb Conc 31.4 g/dL (32-36); Mean Corpuscular Volume 87.4 fL (80-94); Mean Platelet Vol. 11.3 fl (6.2-12.0); NRBC Flagged by Analyzer 0 % (0-5); Platelet Count 147 K/mm3 (150-450); RBC Distribution Width CV 14.1 % (11.6-14.6); RBC Distribution Width SD 45.3 fl (35.1-43.9); Red Blood Count 4.62 M/mm3 (4.6-6.2); White Blood Count 7.4 K/mm3 (4.4-11.0)
[2025-02-28 13:02] LABS: Anion Gap 14 (5-15); BUN 36 mg/dL (4-19); BUN/Creat Ratio 20.5 RATIO (10-20); Calcium,Total 9.9 mg/dL (7.6-11.0); Carbon Dioxide 21.1 mmol/L (21.0-32.0); Chloride 108 mmol/L (98-108); Cholesterol 138 mg/dL (<=200); Glucose 189 mg/dL (70-99); Low Density Lipoprotein Calc. 54 mg/dL; Potassium 4.6 mmol/L (3.3-5.1); Triglycerides 207 mg/dL; Very Low Density Lipoprotein 41 mg/dL (5-40); cholesterol:hdl ratio screen 3.24
== END | disposition home or self-care (01) ==
LOC: MTLAB 10:03
PROVIDERS: PCP Family Medicine; Referring Provider Family Medicine; Visit Provider Family Medicine
DX: I10 Essential (primary) hypertension (principal)
CPT/HCPCS: 36415; 80048; 80061; 85025

== ENCOUNTER → 2025-05-15 | Outpatient (CLI) | payer MEDICARE, SELFPAY ==
[2025-05-15 12:34] LABS: PTHIN 71 pg/mL (11-61)
[2025-05-15 12:35] LABS: Creatinine, Urine (random) 130.00 mg/dL (39.00-259.00); Microalbumin,Random Urine 107.0 mg/L (<20 mg/L)
[2025-05-15 12:37] LABS: Albumin, Serum 4.3 g/dL (3.4-4.8); Anion Gap 13 (5-15); BUN 24 mg/dL (4-19); BUN/Creat Ratio 13.6 RATIO (10-20); Calcium,Total 9.3 mg/dL (7.6-11.0); Carbon Dioxide 21.0 mmol/L (21.0-32.0); Chloride 110 mmol/L (98-108); Glucose 197 mg/dL (70-99); Potassium 4.3 mmol/L (3.3-5.1)
== END | disposition home or self-care (01) ==
LOC: MTLAB 10:20
PROVIDERS: PCP Family Medicine; Referring Provider Internal Medicine Nephrology; Visit Provider Internal Medicine Nephrology
DX: E11.22 Type 2 diabetes mellitus with diabetic chronic kidney disease (principal); N18.32 Chronic kidney disease, stage 3b
CPT/HCPCS: 36415; 80069; 82043; 82570; 83970